=== PATIENT | female | born 1940 | race Caucasian/White ===

== ENCOUNTER 2022-09-15 00:55 | Emergency (ER) | payer MEDICARE, SELFPAY ==
[2022-09-15 01:07] VITALS: BP 136/89; PULSE 66; RESP 22; TEMP 36.6; O2SAT 96; BMI 21.5
--- NOTE | 2022-09-15 01:29 | ED.NURSE ---
Patient vomited x1.
[2022-09-15] MEDS: dexAMETHasone 10 MG/ML inj PO (02:00)
[2022-09-15] MEDS: RACEPINEPHRINE HCL 0.5 ML VIAL.NEB NEB (02:01)
[2022-09-15 02:15] VITALS: BP 135/71; PULSE 66; RESP 18; O2SAT 100
--- NOTE | 2022-09-15 02:16 | ED.NURSE ---
Patient reports improvement in her symptoms.
--- NOTE | 2022-09-15 02:48 | ED.GENADULT ---
HPI - General Adult General Chief complaint: Shortness of Breath/Dyspnea Stated complaint: Covid +, difficulty breathing Time Seen by Provider: 09/15/22 01:41 History of Present Illness HPI narrative: 82-year-old woman presenting to the emergency department with her daughter. Has had 3 days of increasingly sore throat. Has developed some hoarse voice. Was feeling like she was going to choke. She does acknowledges later as evident on exam that uvula is much bigger. Otherwise not necessarily short of breath. Two days ago tested positive on home test for COVID. She has been initiated on appropriate antiviral for COVID. No fever. No chest pain. No diarrhea. No abdominal pain. She has been snoring a little. Related Data Home Medications Medication Instructions Recorded Confirmed alendronate 70 mg tablet 70 mg PO QWEEK 06/14/22 09/15/22 calcium carbonate 600 mg calcium 600 mg PO BID 06/14/22 09/15/22 (1,500 mg) tablet carvedilol 6.25 mg tablet 6.25 mg PO BID 06/14/22 09/15/22 cholecalciferol (vitamin D3) 25 25 mcg PO QDAY 06/14/22 09/15/22 mcg (1,000 unit) capsule diphenhydramine HCl 25 mg capsule 25 mg PO QHS PRN 06/14/22 09/15/22 (Benadryl) hydrochlorothiazide 12.5 mg capsule 12.5 mg PO DAILY 06/14/22 09/15/22 hydrochlorothiazide 25 mg tablet 25 mg PO QAM 06/14/22 06/14/22 lisinopril 20 mg tablet 20 mg PO QDAY 06/14/22 09/15/22 multivitamin with folic acid 400 1 tab PO QAM 06/14/22 09/15/22 mcg tablet sotalol 80 mg tablet 80 mg PO ONCE 06/14/22 09/15/22 warfarin 3 mg tablet 3 mg PO DIRECTED 06/14/22 09/15/22 amlodipine 10 mg tablet mg 09/15/22 Allergies Allergy/AdvReac Type Severity Reaction Status Date / Time No Known Drug Allergies Allergy Verified 06/14/22 08:55 Review of Systems Status of ROS: Reports: 10 or more systems reviewed and unremarkable except as noted in History and below PFSH PFS Social History Smoking Status: Never smoker Do you use any of these nicotine containing products: None Second hand tobacco smoke exposure: No How often do you have a drink containing alcohol: 4 or more times a week How many standard drinks containing alcohol do you have on a typical day: 1 or 2 How often do you have six or more drinks on one occasion: Never AUDIT-C Alcohol total score: 4 Non-prescribed substance use: denies use service: No Exam Narrative: Exam Narrative: A pleasant. Laryngitic. Swallowing is of very painful. Rotational movement of her neck does not elicit more pain though. Oropharynx is moist. Mild edema and erythema in the posterior oropharynx. Uvula looks a little boggy. Intermittently seems to have the need to clear her throat this process looks particularly painful. Mild anterior upper cervical lymphadenopathy. Somewhat tender to palpation here. Lungs appear clear. There is no stridor. Cardiovascular with regular rate and rhythm. Abdomen is protuberant soft nontender. Extremities are without edema. Well perfused. One cough borders on sound croupy Const: Vital Signs, click to edit/add: Vital Signs - 24 hr 09/15/22 01:07 09/15/22 02:15 Temperature 97.8 F Pulse Rate [Pulse Oximeter] 66 66 Respiratory Rate 22 18 Blood Pressure [Le ft Upper Arm] 136/89 135/71 Pulse Oximetry 96 100 Oxygen Delivery Me thod Room Air Room Air Documenting provider has reviewed patient's vital signs: yes Course Vital Signs Vital signs: Initial Vital Signs Temperature 97.8 F 09/15/22 01:07 Temperature Source Temporal Artery Scan 09/15/22 01:07 Pulse Rate 66 09/15/22 01:07 Pulse Rhythm 09/15/22 01:07 Respiratory Rate 22 09/15/22 01:07 Blood Pressure 136/89 09/15/22 01:07 Blood Pressure Mean 104 09/15/22 01:07 Pulse Oximetry 96 09/15/22 01:07 Oxygen Delivery Method 09/15/22 01:07 Vital Signs Temperature 97.8 F 09/15/22 01:07 Pulse Rate 66 09/15/22 01:07 Respiratory Rate 22 09/15/22 01:07 Blood Pressure 136/89 09/15/22 01:07 Pulse Oximetry 96 09/15/22 01:07 Oxygen Delivery Method 09/15/22 01:07 Temperature 97.8 F 09/15/22 01:07 Pulse Rate 67 09/15/22 02:57 Respiratory Rate 18 09/15/22 02:57 Blood Pressure 149/83 H 09/15/22 02:57 Pulse Oximetry 97 09/15/22 02:57 Oxygen Delivery Method 09/15/22 02:57 Medical Decision Making MDM Narrative Medical decision making narrative: Discussed potential treatment options. For the pain and croupyness I noticed I think might benefit from racemic epinephrine nebulization. Would also dose with dose of dexamethasone. Noting affect on follow-up of the nebulization she did feel like she could breathe more easily with less pain. Pain did begin to return offered topical anesthetic in the form of Hurricaine spray. She did accept this. Helped temporarily but seemed to make her little uncomfortable with the swallowing and need to clear her throat. Monitored during time in the emergency department without oxygen desaturation. I think there are limited interventions to offer here. I recommended sleeping more upright, cool mist humidifier and sucking on ice/ice chips. I did discuss this case briefly with our ENT provider who affirmed these recommendations. Overall she has remained stable well from an oxygenation standpoint. She does not want to continue on steroids beyond a singular dose given here. Acetaminophen ordered as well. Discharge Plan Discharge Clinical Impression: Uvular edema, COVID-19, Pharyngitis Patient Disposition: Home w/ Parent or Adult Condition: Stable Additional Instructions: You received racemic epinephrine in nebulization here today. This is also available in Primatene mist; this might help your symptoms sometimes temporarily. I suspect that distilled water nebulized would also be helpful. With that in mind sleeping under the mist of a cool mist humidifier might be helpful. Sucking on ice/ice chips. Popsicles. Sleep more upright. Stay well-hydrated. Snoring and coughing can be exacerbating the uvular edema. Can continue with anesthetic throat sprays and lozenges for your sore throat. 20% benzocaine is available [id number] in the form of extra-strength Orajel If having increased in persistent shortness of breath, get yourself an oxygen saturation monitor and return to the emergency department for oxygen saturations are 90% or less. Prescriptions: No Action hydrochlorothiazide 12.5 mg capsule 12.5 mg PO DAILY Hold Instructions: Doctor's Order lisinopril 20 mg tablet 20 mg PO QDAY warfarin 3 mg tablet 3 mg PO DIRECTED sotalol 80 mg tablet 80 mg PO ONCE alendronate 70 mg tablet 70 mg PO QWEEK calcium carbonate 600 mg calcium (1,500 mg) tablet 600 mg PO BID hydrochlorothiazide 25 mg tablet 25 mg PO QAM diphenhydramine HCl [Benadryl] 25 mg capsule 25 mg PO QHS PRN carvedilol 6.25 mg tablet 6.25 mg PO BID Rx Instructions: must administer with a meal/food multivitamin with folic acid 400 mcg tablet 1 tab PO QAM cholecalciferol (vitamin D3) 25 mcg (1,000 unit) capsule 25 mcg PO QDAY amlodipine 10 mg tablet Follow Up/Referrals: Frannie Holland MD [Primary Care Provider] - Stand Alone Forms: My[facility] Info Instructions
[2022-09-15] MEDS: ACETAMINOPHEN 500 MG TABLET 1000 MG PO (02:56)
[2022-09-15 02:57] VITALS: BP 149/83; PULSE 67; RESP 18; O2SAT 97
== END 2022-09-15 03:08 | disposition home or self-care (01) ==
PROVIDERS: Emergency Provider Family Medicine; PCP Family Medicine
DX: U07.1 COVID-19 (principal); K13.70 Unspecified lesions of oral mucosa
CPT/HCPCS: 94640; 99283; 99284; A9270; J1100

== ENCOUNTER 2023-08-06 06:07 | Day surgery (SDC) | payer MEDICARE, SELFPAY ==
[2023-08-06] MEDS: TETRACAINE 0.5% OPHTH 1 DROP EYE-LEFT ×2 (06:15→06:25)
[2023-08-06 06:20] VITALS: BMI 22.5
[2023-08-06] MEDS: KETOROLAC OPHTH 0.5% 1 DROP EYE-LEFT ×2 (06:24→06:34)
[2023-08-06 06:29] VITALS: BP 126/76; PULSE 64; RESP 20; TEMP 36.4; O2SAT 97
[2023-08-06] MEDS: SODIUM CHLORIDE 0.9 % (FLUSH) 10 ML SYRINGE IVF (06:43)
--- NOTE | 2023-08-06 06:44 | SUR.PREOP ---
The eye drops brought by the patient (Ketorolac and Prednisolone) are examined and I have determined they are labeled by the patient's pharmacy for this patient as prescribed by the surgeon. The bottles are intact, recently obtained and appear to be correct.
[2023-08-06] MEDS: BALANCED SALT IRRIG SOLN 15 ML EYE-LEFT (06:55)
[2023-08-06] MEDS: TETRACAINE 0.5% OPHTH 2 DROP EYE-LEFT (07:00)
--- NOTE | 2023-08-06 07:42 | W.ANESCHARGE ---
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
--- NOTE | 2023-08-06 07:47 | W.ANESCHARGE ---
Anesthesia Charges Start Date/Time Anesthesia Start Date: 08/06/23 Anesthesia Start Time: 07:07 Stop Date/Time Anesthesia Stop Date: 08/06/23 Anesthesia Stop Time: 07:42 Summary Extremes of Age - Over 70 or under 1: MDA
[2023-08-06 07:51] VITALS: BP 124/81; PULSE 61; RESP 12; TEMP 36.3; O2SAT 96
--- NOTE | 2023-08-06 09:09 | P.OPTPRC_ITS ---
Procedure Note Date of procedure: 08/06/23 Will [facility] bill your pro fee for this procedure?: Yes Procedure Description: SURGEON: Melida Briscoe MD PREOPERATIVE DIAGNOSIS: Nuclear sclerotic cataract, left eye. POSTOPERATIVE DIAGNOSIS: Nuclear sclerotic cataract, left eye. NAME OF OPERATION: Phacoemulsification of cataract with posterior chamber intraocular lens implantation in the left eye. ANESTHESIA: Topical. ESTIMATED BLOOD LOSS: Less than 2 cc. COMPLICATIONS: None. PATHOLOGY SPECIMEN: None. INDICATIONS: See consult note for details. The risks, benefits and alternatives of the procedure were explained to the patient, who elected to proceed and signed informed consent to do so. PROCEDURE: The patient was brought to the pre-holding area where the left eye was identified as the operative eye. I placed my initials above this eye. The patient received eye drops consisting of 0.5% tetracaine, 1% tropicamide, 10% phenylephrine, and 0.5% ketorolac. The patient was then brought to the operating room where the left eye was again identified as the operative eye. The eye was prepped with Betadine and draped in the usual sterile ophthalmic fashion. A #15 super-sharp blade was used to create a paracentesis site. 1% non-preserved intracameral lidocaine was injected into the anterior chamber. Endocoat was injected into the anterior chamber. A 2.4 mm keratome was used to create a three-plane self-sealing incision 1 mm anterior to the temporal limbus. A cystotome was used to create an anterior capsular leaflet. The Utrata forceps were used to extend this to form a continuous curvilinear capsulorrhexis. Hydrodissection was performed. The cataract was removed with phacoemulsification using the [id number] technique. The irrigation and aspiration tip was used to remove the remaining cortex. Healon was injected into the capsular bag. An LORI ZCB00 intraocular lens of 18.5 diopters was injected into the capsular bag. The irrigation and aspiration tip was used to remove the remaining viscoelastic. Balanced salt solution on a cannula was used to hydrate the wound, and the wound was found to be watertight. The pupil was noted to be round. DISPOSITION: The patient was taken to the recovery room and discharged to home in stable condition. The patient was instructed to call me or go to the emergency department with any sudden change, including dramatic loss of vision, severe pain in the eye or eyebrow region, nausea, or vomiting. The patient will follow up in the clinic tomorrow morning.
== END 2023-08-06 08:09 | disposition home or self-care (01) ==
PROVIDERS: PCP Student in an Organized Health Care Education/Training Program; Visit Provider Ophthalmology
PROC: (CPT 66984; principal; 2023-08-06 06:15)
DX: H25.12 Age-related nuclear cataract, left eye (principal)
CPT/HCPCS: 66984; 00142; 99100; A9270; J2250; J3010; V2632

== ENCOUNTER 2023-08-20 06:00 | Day surgery (SDC) | payer MEDICARE, SELFPAY ==
[2023-08-20] MEDS: KETOROLAC OPHTH 0.5% 1 DROP EYE-RIGHT ×2 (06:22→06:29)
[2023-08-20] MEDS: TETRACAINE 0.5% OPHTH 1 DROP EYE-RIGHT ×2 (06:22→06:29)
[2023-08-20] MEDS: SODIUM CHLORIDE 0.9 % (FLUSH) 10 ML SYRINGE IVF (06:35)
[2023-08-20 06:49] VITALS: BMI 22.4
[2023-08-20 06:58] VITALS: BP 121/84; PULSE 61; RESP 16; TEMP 36.6; O2SAT 98
[2023-08-20] MEDS: TETRACAINE 0.5% OPHTH 2 DROP EYE-RIGHT (07:14)
[2023-08-20] MEDS: BALANCED SALT IRRIG SOLN 15 ML EYE-RIGHT (07:18)
--- NOTE | 2023-08-20 07:45 | W.ANESCHARGE ---
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
[2023-08-20 08:02] VITALS: BP 105/74; PULSE 61; RESP 16; TEMP 36.5; O2SAT 98
--- NOTE | 2023-08-20 08:21 | W.ANESCHARGE ---
Anesthesia Charges Start Date/Time Anesthesia Start Date: 08/20/23 Anesthesia Start Time: 07:14 Stop Date/Time Anesthesia Stop Date: 08/20/23 Anesthesia Stop Time: 07:47 Summary Extremes of Age - Over 70 or under 1: MDA
--- NOTE | 2023-08-20 10:00 | P.OPTPRC_ITS ---
Procedure Note Date of procedure: 08/20/23 Will [facility] bill your pro fee for this procedure?: Yes Procedure Description: SURGEON: Melida Briscoe MD PREOPERATIVE DIAGNOSIS: Nuclear sclerotic cataract, right eye. POSTOPERATIVE DIAGNOSIS: Nuclear sclerotic cataract, right eye. NAME OF OPERATION: Phacoemulsification of cataract with posterior chamber intraocular lens implantation in the right eye. ANESTHESIA: Topical. ESTIMATED BLOOD LOSS: Less than 2 cc. COMPLICATIONS: None. PATHOLOGY SPECIMEN: None. INDICATIONS: See consult note for details. The risks, benefits and alternatives of the procedure were explained to the patient, who elected to proceed and signed informed consent to do so. PROCEDURE: The patient was brought to the pre-holding area where the right eye was identified as the operative eye. I placed my initials above this eye. The patient received eye drops consisting of 0.5% tetracaine, 1% tropicamide, 10% phenylephrine, and 0.5% ketorolac. The patient was then brought to the operating room where the right eye was again identified as the operative eye. The eye was prepped with Betadine and draped in the usual sterile ophthalmic fashion. A #15 super-sharp blade was used to create a paracentesis site. 1% non-preserved intracameral lidocaine was injected into the anterior chamber. Endocoat was injected into the anterior chamber. A 2.4 mm keratome was used to create a three-plane self-sealing incision 1 mm anterior to the temporal limbus. A cystotome was used to create an anterior capsular leaflet. The Utrata forceps were used to extend this to form a continuous curvilinear capsulorrhexis. Hydrodissection was performed. The cataract was removed with phacoemulsification using the [id number] technique. The irrigation and aspiration tip was used to remove the remaining cortex. Healon was injected into the capsular bag. An LORI ZCB00 intraocular lens of 17.5 diopters was injected into the capsular bag. The irrigation and aspiration tip was used to remove the remaining viscoelastic. Balanced salt solution on a cannula was used to hydrate the wound, and the wound was found to be watertight. The pupil was noted to be round. DISPOSITION: The patient was taken to the recovery room and discharged to home in stable condition. The patient was instructed to call me or go to the emergency department with any sudden change, including dramatic loss of vision, severe pain in the eye or eyebrow region, nausea, or vomiting. The patient will follow up in the clinic tomorrow morning.
== END 2023-08-20 08:20 | disposition home or self-care (01) ==
PROVIDERS: PCP Student in an Organized Health Care Education/Training Program; Visit Provider Ophthalmology
PROC: (CPT 66984; principal; 2023-08-20 06:15)
DX: H25.11 Age-related nuclear cataract, right eye (principal)
CPT/HCPCS: 66984; 00142; 99100; A9270; J2250; J3010; V2632

== ENCOUNTER 2023-12-15 11:29 | Outpatient (CLI) | payer MEDICARE, SELFPAY ==
--- OUTSIDE RECORDS SUMMARY | 2023-12-15 11:33 | XMS_ITS | Clinical Summary ---
Author Name Unknown Organization [facility] Address [place], [place] [address] Care Team Providers Care Experimental Mechanic Name Role Phone Brianna Mckay Primary Care Provider [phone] Allergies No known active allergies Medications Medication Sig Dispensed Refills Start Date End Date Status calcium carbonate (CALTRATE) 600 mg calcium (1,500 mg) tablet Take 1,200 mg by mouth once daily. Not taking 0 2 Active acetaminophen (TYLENOL EXTRA STRGTH) 500 mg tabletIndication s:S/P placement of cardiac pacemaker Take 2 Tablets (1,000 mg) by mouth 3 times daily if needed for Pain (For mild pain.). Max acetaminophen dose: 4000mg in 24 hrs. 0 2 Active alendronate (FOSAMAX) 70 mg tabletIndication s:Senile osteoporosis Take 1 Tablet (70 mg) by mouth once a week in the morning. Take on empty stomach with full glass of water. Do not lie down or eat for 30 12 Tablet 3 3 024 Active lisinopriL (PRINIVIL; ZESTRIL) 20 mg tabletIndication s:Hypertension, unspecified type Take 1 Tablet (20 mg) by mouth once daily. 90 Tablet 2 3 Active zinc gluconate 50 mg tablet Take 1 Tablet (50 mg) by mouth once daily. 4 Active amLODIPine (NORVASC) 10 mg tabletIndication s:Primary Raynaud's phenomenon Take 1 Tablet (10 mg) by mouth once daily. 90 Tablet 2 4 Active triamcinolone (ARISTOCORT; KENALOG) 0.1 % creamIndications :Dermatitis Apply topically to affected area(s) three times daily. 80 g 4 Active polyethylene glycol-electroly te (GOLYTELY) 236-22.74-6.74 -5.86 gram suspensionIndica tions:Polyp of colon, unspecified part of colon, unspecified type Drink 2 liters the day before colonoscopy and 2 liters 6 hours before colonoscopy appointment 4000 mL 4 Active sotaloL (BETAPACE) 80 mg tabletIndication s:Paroxysmal atrial fibrillation (HC) TAKE ONE TABLET BY MOUTH EVERY DAY (EVERY 24 HOURS) 90 Tablet 1 4 Active polyethylene glycol-electroly te (GOLYTELY) 236-22.74-6.74 -5.86 gram suspensionIndica tions:Encounter for screening colonoscopy Drink 1.5 liters (1& 1/2 bottles) the day before colonoscopy and 2 liters (remaining 1/2 bottle) 6 hours prior to colonoscopy appointment. 4000 mL 4 Active warfarin (COUMADIN) 3 mg tabletIndication s:New onset atrial fibrillation (HC),Anticoagula tion monitoring, INR range 2-3 Take by mouth 12/09: Hold; 12/10: Hold; 12/11: Hold; 12/12: Hold; 12/13: Hold; Otherwise 6 mg every Mon, Wed, Fri; 7.5 mg all other days in the evening OR as directed 4 Active sotaloL (BETAPACE) 80 mg tabletIndication s:Paroxysmal atrial fibrillation (HC) TAKE ONE TABLET BY MOUTH ONCE EVERY DAY [EVERY 24 HOURS] 90 Tablet 1 3 024 Discontinued warfarin (COUMADIN) 3 mg tabletIndication s:New onset atrial fibrillation (HC),Anticoagula tion monitoring, INR range 2-3 Take by mouth 7.5 mg (3 mg x 2.5) every Sun; 6 mg (3 mg x 2) all other days in the evening OR as directed 190 Tablet 4 024 Discontinued(Re order (E-cancel not sent)) warfarin (COUMADIN) 3 mg tabletIndication s:New onset atrial fibrillation (HC),Anticoagula tion monitoring, INR range 2-3 Take by mouth 6 mg (3 mg x 2) every Mon, Wed, Fri: 7.5 mg (3 mg x 2.5) all other days in the evening OR as directed 024 Discontinued(Ot her - add note to specify (E-cancel not sent)) Active Problems Problem Noted Date Diagnosed Date Pacemaker 06/14/2022 Paroxysmal atrial fibrillation 04/16/2022 New onset atrial fibrillation 01/24/2022 Anticoagulation monitoring, INR range 2-3 2021 Raynaud phenomenon 09/10/2021 Colon polyp 08/21/2018 Overview: Colonoscopy 08/2018 polyp, lymphocytic colitis, repeat in 5 years Lymphocytic colitis 08/21/2018 Overview: Colonoscopy 08/2018 polyp, lymphocytic colitis, repeat in 5 years H. pylori infection 07/28/2018 Overview: EGD 07/2018 H pylori gastritis HTN (hypertension) 12/26/2010 Other and unspecified hyperlipidemia 06/26/2007 Senile osteoporosis 06/26/2007 Overview: Fosamax 2003- Restarted 2020 Encounters Date Type Department Care Team Description 12/05/2023 11:10 AM CDT Preop Visit [facility] [address] [place] [address] Brianna Mckay PA Preoperative Exam (Colonoscopy 12/15/23 [facility] Conn) 12/05/2023 Travel 12/03/2023 Anticoagulation (warfarin) [facility] [address] [place] [address] 1, [facility] Anticoagulation (Chart update: Procedure Hold) 12/03/2023 Telephone [facility] [address] [place] [address] Brianna Mckay PA Medication Management 12/03/2023 Telephone [facility] [address] [place] [address] Ray Cnon MD Questions 12/02/2023 Refill [facility] [address] [place] [address] Brianna Mckay PA Refill Request (Sotalol) 12/01/2023 11:30 AM CDT Orders Only [facility] [address] [facility] [place] [address] [place] [facility] 12/01/2023 Telephone [facility] [address] [place] [address] Brianna Mckay PA Anticoagulation (HOLD ORDERS- Colonoscopy 12/15/23) 12/01/2023 Anticoagulation (warfarin) [facility] [address] [place] [address] 1, [facility] Anticoagulation 12/01/2023 Travel 11/27/[address] [address] Ray Conn MD Screening 11/24/[address] [address] Brianna Mckay PA Referral 11/17/2023 3:15 PM CDT Orders Only [facility] [address] [place] [address] [place] [facility] 11/17/2023 Anticoagulation (warfarin) [facility] [address] [place] [address] 1, [facility] Anticoagulation 11/17/2023 Travel 11/06/[address] [address] Brianna Mckay PA Anticoagulation (Annual re-enrollment ) 10/28/2023 10:15 AM MARKETING AND DEVELOPMENT COORDINATOR Orders Only [address] [address] [place] [facility] 10/28/2023 Anticoagulation (warfarin) [facility] [address] [place] [address] 1, [facility] Anticoagulation 10/28/2023 Travel 10/15/2023 Anticoagulation (warfarin) [facility] [address] [place] [address] 1, [facility] Anticoagulation 10/14/2023 1:00 PM MARKETING AND DEVELOPMENT COORDINATOR Orders Only [address] [place] [address] Lab[facility] [place] [facility] 10/14/2023 Travel 10/13/[address] [place] [address] Brianna Mckay PA Refill Request (Warfarin) 10/10/2023 9:05 AM MARKETING AND DEVELOPMENT COORDINATOR Office Visit [address] [place] [address] Brianna Mckay PA Derm Problem (Bilateral lower legs- seems to be spreading ) 10/10/2023 Travel 10/09/2023 Nurse Triage [address] [place] [address] Brianna Mckay PA Rash 10/03/2023 1:45 PM MARKETING AND DEVELOPMENT COORDINATOR Orders Only [address] [place] [address] Lab[place] [facility] 10/03/2023 Anticoagulation (warfarin) [address] [address] 1, [facility] Anticoagulation 10/03/2023 Travel 09/26/2023 9:00 AM MARKETING AND DEVELOPMENT COORDINATOR Orders Only [address] [place] [address] Lab[place] [facility] 09/26/2023 Anticoagulation (warfarin) [address] [address] 1, [facility] Anticoagulation 09/26/2023 Travel 09/24/2023 10:40 AM MARKETING AND DEVELOPMENT COORDINATOR [facility] [address] [facility] [place] [address] Danii Ragland NP CV Electrophysiology Est (F/u post PPM implant, device check done prior. ) 09/24/2023 Travel 09/23/[address] [facility] [place] [address] Brianna Mckay PA Anticoagulation (High INR) 09/22/2023 3:15 PM MARKETING AND DEVELOPMENT COORDINATOR Orders Only [facility] [address] [facility] [place] [address] Lab[place] [facility] 09/22/2023 Anticoagulation (warfarin) [facility] [address] [place] [address] 1, [facility] Anticoagulation 09/22/2023 Telephone [facility] [address] [place] [address] Brianna Mckay PA Lab 09/22/2023 Travel 09/18/2023 7:30 AM MARKETING AND DEVELOPMENT COORDINATOR Office Visit [facility] [address] [place] [address] Lisa French, Hand Pain/problem (painful fingers on both hands, skin is splitting and raw. ongoing for several years); Derm Problem (dry patchy skin on lower extremities for 2 weeks. occasionally itchy. ) 09/18/2023 Travel 09/16/2023 Telephone [facility] [address] [place] [address] Brianna Mckay PA Appointment Request (Requesting to be seen for circulation concerns ) from Last 3 Months Immunizations Name Administration Dates Next Due COVID-19 vaccine (Moderna 10 0mcg/0.5mL) PF, MDV 12/06/2021,07/03/2021,11/17/2020 Influenza RIV4 (Age 18+ Years) PRESERV FREE 10/2019 Influenza, High-dose Inactivated 06/18/2018,05/02 Influenza, High-dose Quadriv alent Inactivated 06/25/2023,06/10/2022,05/18/2021 Influenza, IIV3 (Age >=3 years) 05/12/2008 Influenza, Inactivated IIV3 (Age 65+ Years) Preserv Free 05/24/2019 Pneumococcal Poly,23-Valent (Pneumovax) 06/19/20 20 Pneumococcal conj 13-Valent (Prevnar 13) 019 Td (Age >=7 Years) 03/01/2003 Tdap 06/10/2022,02/10/2013 Zoster (Shingrix-RZV, recombinant) 05/24/2019, Zoster (Zostavax-ZVL, live) 10/02/2015 Family History Medical History Relation Name Comments Hyperlipidemia Father Hypertension Father Stroke Father Cancer-breast Maternal Grandmother Arthritis Mother Cancer Mother Lung/Smoker Hyperlipidemia Mother Cancer-breast Sister Postmenopausal breast cancer Sister Relation Name Status Comments Father Maternal Grandmother Mother Sister Social History Tobacco Use Types Packs/Day Years Used Date Smoking Tobacco: Never Smokeless Tobacco: Never Tobacco Cessation:Counseling Given: Yes Alcohol Use Standard Drinks/Week Comments Yes 7 (1 standard drink = 0.6 oz pur e alcohol) 1 drink/day PHQ-2 Answer Date Recorded PHQ-2 TOTAL SCORE 0 06/25/2023 Social Connections Answer Date Recorded Frequency of Communication with Friends and Fami ly 0 09/18/2023 Financial Resource Strain Answer Date R ecorded Difficulty of Paying Living Expenses 3 09/18/2023 Difficulty of Paying Living Expenses Not on file 09/18/2023 Food Insecurity Answer Date Recorded Worried About Running Out of Food in the Last Ye ar 1 09/18/2023 Transportation Needs Answer Date Record ed Lack of Transportation (Medical) 1 09/18/2023 Housing Stability Answer Date Recorded Unable to Pay for Housing in the Last Year 1 09/18/2023 Sex and Gender Information Value Date Recorded Sex Assigned at Not on file Gender Identity Not on file Sexual Orientation Not on file Obstetrics History Para Term AB IAB SAB Ectopic Multiple Livin g Live Births 2 2 Date Outcome GA Total Labor Labor/2nd/3rd Weight Sex Delivery Anes PTL Francine A1 A5 Name Cl in Last Filed Vital Signs Vital Sign Reading Time Taken Comments Blood Pressure 113/75 12/05/2023 11:09 AM CDT Pulse 81 12/05/2023 11:09 AM CDT Temperature 36.4 ??C (97.5 ??F) 08/04/2023 2:27 PM CS T Respiratory Rate 16 08/04/2023 2:27 PM MARKETING AND DEVELOPMENT COORDINATOR Oxygen Saturation 99% 12/05/2023 11:09 AM CDT Inhaled Oxygen Concentration - - Weight 64.5 kg (142 lb 3.2 oz) 12/05/2023 11:09 AM CDT Height 170.5 cm (5' 7.13) 12/05/2023 11:09 AM C DT Body Mass Index 22.19 12/05/2023 11:09 AM CDT Plan of Treatment Upcoming Encounters Date Type Department Care Team (Late st Contact Info) Description 12/15/2023 11:45 AM CDT Office Visit [facility] [address] [place] [address] Ray Conn MD [address] [place] [address] Arrived 12/22/2023 10:00 AM CDT Orders Only [facility] [address] [place] [address] [place] 01/23/2024 Cardiac Device Check [facility] [phone] Health Maintenance Due Date Last Done Comments Influenza for age 65+ 05/02/2024 06/25/2023 , 06/10/2022, 05/18/2021, Additional history exists Medicare Wellness for age 65+ 06/25/2024, 06/24/2022, 06/21/2021, Additional history exists Depression screening for age 12+ 06/26/2024 06/26/2023, 06/25/2023, 06/25/2023, Additional history exists BMI (ht and wt on same day) for age 18+ 12/04/2024 12/05/2023, 09/24/2023, 08/04/2023, Additional history exists Tetanus booster 06/10/2032 06/10/2022, 01/30, 02/10/2013, Additional history exists Zoster (shingles) series for age 50+ Completed 05/24/2019, 02/01/2019, 10/02/2015 Pneumococcal series for age 65+ Completed 0, 06/17/2019 Tdap Completed 06/10/2022, 02/10/2013 COVID-19 vaccine series Completed 06/10/20 23, 05/22/2022, 12/06/2021, Additional history exists DEXA/DXA scan for age 65+ Completed 2022, 06/25/2021, 07/21/2012, Additional history exists Procedures Procedure Name Priority Date/Time Associated Diagnosis Comments COLONOSCOPY SCREENING Routine 12/15/2023 8:20 AM CDT Polyp of colon, unspecified part of colon, unspecified type BASIC METABOLIC PANEL Routine 12/05/2023 11:56 AM CDT Preop examination INR,POCT Routine 12/01/2023 11:31 AM CDT New onset atrial fibrillation (HC) Anticoagulation monitoring, INR range 2-3 INR,POCT Routine 11/17/2023 3:04 PM CDT New onset atrial fibrillation (HC) Anticoagulation monitoring, INR range 2-3 INR,POCT Routine 10/28/2023 10:19 AM MARKETING AND DEVELOPMENT COORDINATOR New onset atrial fibrillation (HC) Anticoagulation monitoring, INR range 2-3 PROTIME-INR STAT 10/14/2023 12:50 PM MARKETING AND DEVELOPMENT COORDINATOR New onset atrial fibrillation (HC) Anticoagulation monitoring, INR range 2-3 PROTIME-INR STAT 10/03/2023 1:40 PM MARKETING AND DEVELOPMENT COORDINATOR New onset atrial fibrillation (HC) Anticoagulation monitoring, INR range 2-3 PROTIME-INR STAT 09/26/2023 8:57 AM MARKETING AND DEVELOPMENT COORDINATOR New onset atrial fibrillation (HC) Anticoagulation monitoring, INR range 2-3 EKG 12 LEAD Routine 09/24/2023 10:31 AM MARKETING AND DEVELOPMENT COORDINATOR Paroxysmal atrial fibrillation (HC) PROTIME-INR Routine 09/22/2023 3:18 PM MARKETING AND DEVELOPMENT COORDINATOR New onset atrial fibrillation (HC) Anticoagulation monitoring, INR range 2-3 XR DXA BONE DENSITY 2 SITES AXIAL Routine 06/26/2023 1:16 PM CDT Senile osteoporosis from Last 3 Months or Most Recently Relevant to Health Maintenance Results * (ABNORMAL) BASIC METABOLIC PANEL (12/05/2023 11:56 AM CDT) [facility] Signature SODIUM 142 136 - 145 mmol/L 12/05/2023 10:17 PM CDT [facility] POTASSIUM 4.2 3.5 - 5.1 mmol/L 12/05/2023 10:17 PM CDT [facility] CHLORIDE 105 98 - 107 mmol/L 12/05/2023 10:17 PM CDT [facility] CO2,TOTAL 28 22 - 29 mmol/L 12/05/2023 10:17 PM CDT [facility] ANION GAP 9 5 - 18 12/05/2023 10:17 PM T [facility] GLUCOSE 92 70 - 99 mg/dL 12/05/2023 10:17 PM CDT [facility] CALCIUM 9.8 8.8 - 10.2 mg/dL 12/05/2023 10:17 PM T [facility] BUN 18 8 - 23 mg/dL 12/05/2023 10:17 PM T [facility] CREATININE 1.01(H) 0.50 - 0.90 mg/dL 12/05/2023 10:17 PM T [facility] BUN/CREAT RATIO 18 10 - 20 10:17 PM T [facility] eGFR 56(L) >90 mL/min/1.7 3m2 12/05/2023 10:17 PM T [facility] Comment:As of 2021, eG FR is calculated by the CKD-EPI creatinine equation without race adjustment. ??eGFR can be influenced by muscle mass, exercise, and diet. ??The reported eGFR is an estimation only and is only applicable if the renal function is stable. Blood BLOOD SPECIMEN / Unknown Venipuncture / Unknown 12/05/2023 11:56 AM CDT 12/05/2023 11:56 AM CDT Brianna BARRIGA CHEMISTRY [facility] [address] [place] [address], [place] * (ABNORMAL) INR,POCT (12/01/2023 11:31 AM CDT) Only the most recent of3 resultswithin the time period is included. INR 2.7(H) <1.3 12/01/2023 11:36 AM CDT [facility] Blood BLOOD SPECIMEN / Unknown 12/01/2023 11:31 AM CDT 12/01/2023 11:36 AM CDT Narrative [facility] - 12/01/2023 11:36 AM CDT ?Therapeutic Range 2.0-3.0 for most anticoagulated patients 2.5-3.5 or 4.0 for high risk patients Brianna BARRIGA LABORATORY Performing Organization Address [place]/[facility] Co de Phone Number [facility] [address] [place] [address], [place] [phone] * (ABNORMAL) PROTIME-INR (10/14/2023 12:50 PM MARKETING AND DEVELOPMENT COORDINATOR) Only the most recent of4 resultswithin the time period is included. INR 2.9(H) <1.3 10/14/2023 8:52 PM MARKETING AND DEVELOPMENT COORDINATOR [facility] PROTIME 31.5(H) 10.3 - 12.3 sec 10/14/2023 8:52 PM MARKETING AND DEVELOPMENT COORDINATOR [facility] Blood BLOOD SPECIMEN / Unknown Venipuncture / Unknown 10/14/2023 12:50 PM MARKETING AND DEVELOPMENT COORDINATOR 10/14/2023 12:53 PM MARKETING AND DEVELOPMENT COORDINATOR Narrative [facility] - 10/14/2023 8:52 PM MARKETING AND DEVELOPMENT COORDINATOR ?Therapeutic Range 2.0-3.0 for most anticoagulated patients 2.5-3.5 or 4.0 for high risk patients The INR is only used for patients on stable oral anticoagulant therapy. It makes no significant contribution to the diagnosis or treatment of patients whose Protime is prolonged for other reasons. INR results are increased when heparin levels exceed 1.0 U/mL, which corresponds to an aPTT >125 seconds if the patient is on UFH. Brianna BARRIGA HEMATOLOGY [facility] [address] [place] [address], * EKG 12 LEAD (09/24/2023 10:31 AM MARKETING AND DEVELOPMENT COORDINATOR) Interpretation Atrial-paced rhythm Abnormal ECG When compared with ECG of 09-APR-2022 15:30, Premature atrial complexes are no longer Present Right bundle branch block is no longer Present Ventricular Rate 71 BPM Atrial Rate 71 BPM P-R Interval 198 ms QRS Duration 74 ms QT 418 ms QTc 454 ms P Martell degrees R Martell 54 degrees T Martell 49 degrees 09/24/2023 10:3 1 AM MARKETING AND DEVELOPMENT COORDINATOR 09/25/2023 7:48 AM MARKETING AND DEVELOPMENT COORDINATOR Danii Ragland NP EKG ORD * (ABNORMAL) XR DXA BONE DENSITY 2 SITES AXIAL (06/26/2023 1:16 PM CDT) Anatomical Region Laterality Modality Spine, HIPS, HIPL, HIPR Other Impressions 07/02/2023 4:54 PM CDT Osteoporosis. RECOMMENDATIONS: The National Osteoporosis Foundation recommends pharmacologic treatment for patients with T-scores of -2.5 or less, patients with prior history of fragility fractures, or patients with 10-year probability of greater than 3% at hips or greater than 20% of suffering major osteoporotic fractures. Recommend continued optimization of calcium and vitamin D intake through dietary means and/or supplementation and regular exercise. Consider pharmacologic therapy for osteoporosis. Follow-up bone density reading in 2 years if therapy initiated to assess therapeutic efficacy. ?? Patient just discontinued fosamax, so consider alternative medication. Flower Saavedra PA-C [employer] [facility] 07/02/2023 Narrative 07/02/2023 4:54 PM CDT For Patients: Results are automatically released to your [employer] ([employer]) account once available, in compliance with federal regulations. This means that you may see your results before your provider has had a chance to review them. Please allow 2-3 business days for your provider to comment on the results. XR DXA Bone Mineral Density (BMD) EXAM LOCATION: [facility] [address] [facility] [id number] PATIENT NAME: Nemesio Horta DATE OF : 1940 EXAM DATE: 06/26/2023 REQUESTING PROVIDER: Brianna Mckay PA GENDER AT : female HEIGHT: 5' 6.06 (06/25/2023) WEIGHT: ??139 lb 3.2 oz (06/25/2023) MENOPAUSAL STATUS: Postmenopausal RACE/ETHNICITY: White RISK FACTORS: White Race CURRENT MEDICATION FOR BONE LOSS: Alendronate (Fosamax) - stopped taking it 3 weeks ago INDICATION: Senile osteoporosis COMPARISON DATE(S): 2020 DXA scans are compared to prior studies for a patient only when the two (or more) studies were performed on the same scanner. It is not possible to compare data generated on one scanner to data from another because there are not standards in DXA equipment. This applies even if the two scanners are made by the same interior design principal. PROCEDURE: Dual-energy x-ray absorptiometry performed with routine technique. Reporting is completed in the form of a T-score. The T-score represents the standard deviation from peak bone mass based on young healthy adult. A Z-score is used for diagnosis in premenopausal women, and for men under the age of 50. FINDINGS: RESULT LUMBAR SPINE L1 - L4 BMD: 0.717 g/cm2 T-Score: - 3.9 Z-Score: - 1.9 Change from prior in 2020: ??Increase 5.0%. RESULTS FEMUR Left femoral neck BMD: 0.708 g/cm2 T-Score: - 2.4 Z-Score: - 0.1 Change from prior in 2020: ??Decrease 0.7%. Right femoral neck BMD: 0.705 g/cm2 T-Score: - 2.4 Z-Score: - 0.1 Change from prior in 2020: ??Decrease 1.3%. Left hip BMD: 0.713 g/cm2 T-Score: - 2.3 Z-Score: - 0.2 Change from prior in 2020: ??Increase 4.7%. Right hip BMD: 0.669 g/cm2 T-Score: - 2.7 Z-Score: - 0.6 Change from prior in 2020: ??Increase 4.5%. WHO criteria: Normal: T-score at or above -1 SD Osteopenia: T-score between -1.1 and -2.4 SD Osteoporosis: T-score at or below -2.5 SD Brianna BARRIGA DEXA from Last 3 Months or Most Recently Relevant to Health Maintenance Advance Directives Documents on File Type Date Recorded Patient Head Stock Operator Expl anation Healthcare Directive 04/21/2014 12:18 PM Ne GEE, 03/11/2007 * Full Code (Latest Code Status on File) Date Activated Date Inactivated Comments 04/09/2022 12:28 PM 04/09/2022 6:46 PM Question Answer Comments Code Status Discussion: Reviewed Preferences Care Teams Experimental Mechanic Relationship Specialty Start Date End Date Brianna Mckay [place] [address] PCP - General Physician Operator Catalyst Concentration 12/25/22
--- NOTE | 2023-12-15 13:44 | P.ANES_ITS ---
Anesthesia Charges Start Date/Time Anesthesia Start Date: 12/15/23 Anesthesia Start Time: 13:00 Stop Date/Time Anesthesia Stop Date: 12/15/23 Anesthesia Stop Time: 13:35 Summary Extremes of Age - Over 70 or under 1: AQUACULTURE WORKER
--- NOTE | 2023-12-15 14:20 | W.ANESCHARGE ---
Anesthesia Charges Start Date/Time Anesthesia Start Date: 12/15/23 Anesthesia Start Time: 13:00 Stop Date/Time Anesthesia Stop Date: 12/15/23 Anesthesia Stop Time: 13:35 Summary Extremes of Age - Over 70 or under 1: MDA
== END 2023-12-15 11:30 | disposition home or self-care (01) ==
LOC: OP CLINIC 11:30
PROVIDERS: PCP Student in an Organized Health Care Education/Training Program; Visit Provider Internal Medicine Gastroenterology
DX: Z12.11 Encounter for screening for malignant neoplasm of colon (principal); K63.5 Polyp of colon; K57.30 Diverticulosis of large intestine without perforation or abscess without bleeding; Z86.010 Personal history of colon polyps
CPT/HCPCS: 00811; 00812; 45380; 45385; 88305; 99100; J2704

== ENCOUNTER 2024-02-19 06:34 | Outpatient (CLI) | payer MEDICARE, SELFPAY ==
--- OUTSIDE RECORDS SUMMARY | 2024-02-21 06:14 | XMS_ITS | Clinical Summary ---
Author Organization [facility] Address [place], [place] [address] Care Team Providers Care [employer] Sil[employer] Name Role Phone Brianna Mckay Primary Care Provider [phone] Allergies No known active allergies Medications Medication [...] 02/18/2024 1:35 PM CDT Phone Office Visit [address] [address] Brianna Mckay PA Covid-19 Positive Result (02/15 started as a runny nose/cold/02/16 positive results /feeling terrible, weak and not eating.) 02/18/2024 Telephone [facility] [address] [place] [address] Brianna Mckay PA Anticoagulation (BPA - PAXLOVID 300 MG (150 MG X 2)-100 MG TABLETS IN A DOSE PACK) 02/02/2024 2:00 PM CDT Orders Only [address] [address] Lab, [place] [facility] 02/02/2024 Anticoagulation (warfarin) [facility] [address] [place] [address] 1, [place] [facility] Anticoagulation 02/02/2024 Travel 01/20/2024 3:15 PM CDT Office Visit [address] [address] Brianna Mckay PA Blood Pressure 01/20/2024 Travel 01/05/2024 11:15 AM CDT Orders Only [address] [address] Lab, [place] [facility] 01/05/2024 Anticoagulation (warfarin) [facility] [address] [place] [address] 1, [place] Anticoagulation 01/05/2024 Travel 01/02/2024 Telephone [facility] [address] [place] [address] Brianna Mckay PA Anticoagulation 01/02/2024 Telephone [facility] [address] [place] [address] Brianna Mckay PA Refill Request (warfarin (COUMADIN) 3 mg tablet/) 01/02/2024 Telephone [facility] [address] [place] [address] Brianna Mckay PA Medication Management 01/02/2024 Refill [facility] [address] [place] [address] Brianna Mckay PA Refill Request (Hydrochlorothiazide, Warfarin) 01/02/2024 Refill [facility] [address] [facility] [address] [place] [address] Mulugeta Ren MD Refill Request (Carvedilol) 01/02/2024 Telephone [facility] [address] [place] [address] Brianna Mckay PA Medication Management 12/22/2023 10:00 AM CDT Orders Only [facility] [address] [place] [address] Lab, [place] [facility] 12/22/2023 Anticoagulation (warfarin) [facility] [address] [place] [address] 1, [facility] Anticoagulation 12/22/2023 Travel 12/15/2023 11:45 AM CDT Office Visit [facility] at [facility] [address] [place] [address] Ray Conn MD 12/15/2023 Lab Requisition [facility] [phone] Ray Conn MD 12/05/2023 11:10 AM CDT Preop Visit [facility] [place] [address] Brianna Mckay PA Preoperative Exam (Colonoscopy 12/15/[address] [facility] [address] Conn) 12/05/2023 Travel 12/03/2023 Anticoagulation (warfarin) [address] [address] 1, [facility] Anticoagulation (Chart update: Procedure Hold) 12/03/[address] [address] Brianna Mckay PA Medication Management 12/03/[address] [address] Ray Conn MD Questions 12/02/[address] [address] Brianna Mckay PA Refill Request (Sotalol) 12/01/2023 11:30 AM CDT Orders Only [address] [address] Lab, [facility] 12/01/[address] [address] Brianna Mckay PA Anticoagulation (HOLD ORDERS- Colonoscopy 12/15/23) 12/01/2023 Anticoagulation (warfarin) [address] [address] 1, [facility] Anticoagulation 12/01/2023 Travel 11/27/[address] [address] Ray Conn MD Screening 11/24/[address] [address] Brianna Mckay PA Referral from Last 3 [...] T Respiratory Rate 16 08/04/2023 2:27 PM FIREFIGHTER TYPE ONE Oxygen Saturation 96% 01/20/2024 2:23 PM CDT Inhaled Oxygen Concentration - - Weight 63.4 kg (139 lb 11.2 oz) 01/20/2024 2:23 PM CDT Height 170.5 cm (5' 7.13) 12/05/2023 1 1:09 AM CDT Body Mass Index 21.8 12/05/2023 11:09 AM CDT Plan of Treatment Upcoming Encounters Date Type Department Care Team (Late st Contact Info) Description 02/25/2024 8:45 AM CDT Orders Only [facility] [address] [place] [address] Lab, [place] 02/25/2024 11:35 AM CDT Office Visit [facility] [address] [place] [address] Brianna Mckay PA [address] [place] [address] 06/09/2024 Cardiac Device Check [facility] [phone] Health Maintenance Due Date Last Done Comments [...] Procedure Name Priority Date/Time Associated Diagnosis Comments PACER NANCI DUAL CHAMBER WO REPROG Routine 02/19/2024 1:12 PM CDT Fitting or adjustment of cardiac pacemaker INR,POCT Routine 02/02/2024 1:53 PM CDT New [...] INR 2.1(H) <1.3 02/02/2024 1:56 PM CDT [facility] Blood BLOOD SPECIMEN / Unknown 02/02/2024 1:53 PM CDT 02/02/2024 1:56 PM CDT Narrative [facility] - 02/02/2024 1:56 PM CDT ?Therapeutic Range 2.0-3.0 for most anticoagulated patients 2.5-3.5 or 4.0 for high risk patients [facility] [place] [address], * (ABNORMAL) BASIC METABOLIC PANEL (01/20/2024 2:47 PM CDT) Only the most recent of2 resultswithin the time period is included. SODIUM 142 136 - 145 mmol/L 01/21/2024 2:01 AM CDT [facility] POTASSIUM 3.8 3.5 - 5.1 mmol/L 01/21/2024 2:01 AM CDT [facility] CHLORIDE 105 98 - 107 mmol/L 01/21/2024 2:01 AM CDT [facility] CO2,TOTAL 28 22 - 29 mmol/L 01/21/2024 2:01 AM CDT [facility] ANION GAP 9 5 - 18 01/21/2024 2:01 AM T [facility] GLUCOSE 94 70 - 99 mg/dL 01/21/2024 2:01 AM T [facility] CALCIUM 9.3 8.8 - 10.2 mg/dL 01/21/2024 2:01 AM CDT [facility] BUN 13 8 - 23 mg/dL 01/21/2024 2:01 AM T [facility] CREATININE 0.84 0.50 - 0.90 mg/dL 01/21/2024 2:01 AM T [facility] BUN/CREAT RATIO 15 10 - 20 2:01 AM T [facility] eGFR 70(L) >90 mL/min/1.7 3m2 01/21/2024 2:01 AM T [facility] Comment:As of 2021, eG FR is calculated by the CKD-EPI creatinine equation without race adjustment. ??eGFR can be influenced by muscle mass, exercise, and diet. ??The reported eGFR is an estimation only and is only applicable if the renal function is stable. Blood BLOOD SPECIMEN / Unknown Venipuncture / Unknown 01/20/2024 2:47 PM CDT 01/20/2024 2:49 PM CDT [facility]anna [facility] [address] [place] [address], * (ABNORMAL) PROTIME-INR (12/22/2023 9:59 AM CDT) INR 1.5(H) <1.3 12/22/2023 3:38 PM CDT [facility] PROTIME 16.2(H) 10.3 - 12.3 sec 12/22/2023 3:38 PM CDT [facility] Blood BLOOD SPECIMEN / Unknown Venipuncture / Unknown 12/22/2023 9:59 AM CDT 12/22/2023 10:00 AM CDT Narrative [facility] - 12/22/2023 3:38 PM CDT ?Therapeutic Range [...] UFH. Brianna [facility]AT[facility] Performing Organization Address [facility] Phone Number [facility] [address] [place] [address], * LAB TRACKING EVENT (12/15/2023 1:25 PM CDT) Other (Other) Client Collect / Unknown 12/15/2023 1:25 PM CDT 12/15/2023 8:40 PM CDT Ray Conn MD LAB BILL ONLY Performing Organization Address [facility] de Phone Number [facility] [address] [place] [address], * PATH TISSUE EXAM (12/15/2023 1:25 PM CDT) Case Report Pathology Report ?Case: [id number] ? Authorizing Provider: ??Ray Conn MD ?? Collected: ? 12/15/2023 1325 ? Ordering Location: ? [facility] ?Received: ?12/15/20232105 ? Pathologist: ? Maikol Weir ? CAMILA, ? Specimens: ?? A) - Colon Biopsy, Random ? B) - Transverse Colon Polyp ? 12/16/2023 1:39 PM CDT [facility] Final Diagnosis A) COLON, RANDOM, BIOPSY: 1. Normal colonic mucosa 2. Negative for microscopic, active, and chronic colitis B) COLON, TRANSVERSE, POLYPECTOMY: 1. Tubular adenoma 2. Negative for high grade dysplasia 3. Per the colonoscopy report: ?? a. Polyp size: 3 mm ?? b. Resection: Complete ?? c. Retrieval: Complete 12/16/2023 1:39 PM CDT [facility] Clinical Information Ms. Horta is a 83 y.o. who presents for surveillance colonoscopy. Colonoscopy findings include: -1, 3 mm transverse polyp -Sigmoid diverticulosis 12/16/2023 1:39 PM CDT [facility] Gross Description A) Received in formalin [...] 12/15/2023 9:09 PM 12/16/2023 1:39 PM CDT [facility] Microscopic Description The final diagnosis is based on microscopic examination of appropriate sections of all specimens. 12/16/2023 1:39 PM CDT [facility] Additional Information Interpreted at [facility] - [address] [facility] [address] [facility] [address], [place] [address] 12/16/2023 1:39 PM CDT [facility] Other (Colon Biopsy) 12/15/2023 1:25 PM CDT 12/15/2023 9:06 PM CDT Specimen (specimen) (Transverse Colon Polyp) 12/15/2023 1:25 PM CDT 12/15/2023 9:06 PM CDT Ray Conn MD PATHOLOGY/CYTOLOG Y [facility] [address] [place] [address], * COLONOSCOPY SCREENING (12/15/2023 12:00 AM CDT) [...] so consider alternative medication. Flower Saavedra PA-C [facility] 07/02/2023 Narrative 07/02/2023 4:54 PM CDT For Patients: Results are automatically released to your [facility] ([employer]) account once available, in compliance with federal regulations. This means that you may see your results before your provider has had a chance to review them. Please allow 2-3 business days for your provider to comment on the results. XR DXA Bone Mineral Density (BMD) EXAM LOCATION: [address] [address] PATIENT NAME: Nemesio Horta DATE OF : [...] two scanners are made by the same police judge. PROCEDURE: Dual-energy x-ray absorptiometry performed with routine [...] Documents on File Type Date Recorded Patient Production Clerk Expl anation Healthcare Directive 04/21/2014 12:18 PM A Jethro GEE, 03/[birth year]/2007 * Full Code (Latest Code Status on File) Date Activated Date Inactivated Comments 04/09/2022 12:28 PM 04/09/2022 6:46 PM Question Answer Comments Code Status Discussion: Reviewed Preferences Care Teams [employer] Relationship Specialty Start Date End Date Brianna Mckay PA [address] [place] [address] PCP - General Physician Field Mechanic 12/25/22
== END 2024-02-19 06:35 | disposition home or self-care (01) ==
LOC: AMB 02-21 06:11
PROVIDERS: PCP Student in an Organized Health Care Education/Training Program; Visit Provider Family Medicine
DX: R53.1 Weakness (principal); U07.1 COVID-19
CPT/HCPCS: A0425; A0429

== ENCOUNTER 2024-02-19 07:01 | Emergency (ER) | payer MEDICARE, SELFPAY ==
[2024-02-19 07:03] VITALS: BP 142/89; PULSE 73; RESP 20; TEMP 37.6; O2SAT 98; BMI 21.3
[2024-02-19] MEDS: 0.9 % SODIUM CHLORIDE 1000 ml 1,000 ML 500 ML IV (08:15)
[2024-02-19 08:18] LABS: Lactate* 1.3 mmol/L (0.5-1.9)
[2024-02-19 08:20] LABS: Basophils Absolute Auto 0.02 K/uL (0.00-0.30); Basophils Percent Auto 0.3 % (0.0-3.0); Eosinophils Absolute Auto 0.07 K/uL (0.00-0.50); Eosinophils Percent Auto 0.9 % (0.0-7.0); Hemoglobin* 15.6 gm/dL (12.0-16.0); Immature Granulocytes Abs Auto 0.01 K/uL (0.00-0.30); Immature Granulocytes Pct Auto 0.1 %; Lymphocytes Percent Auto 12.3 % (20-44); Mean Corpuscular HGB Conc 34 gm/dL (32-36); Mean Corpuscular Hemoglobin 31 pg (26-34); Mean Corpuscular Volume 90 fL (80-100); Monocytes Percent Auto 11.4 % (0.0-11.0); Platelet Count* 190 K/uL (140-440); RDW Coefficient of Variation % 12.9 % (11.5-15.5); Red Blood Count 5.12 m/uL (4.00-5.20); White Blood Count* 7.81 K/uL (4.50-11.00)
[2024-02-19 08:21] LABS: Slide Review Reflex No
--- OUTSIDE RECORDS SUMMARY | 2024-02-19 08:25 | XMS_ITS | Clinical Summary ---
Author Organization [facility] [facility] Address [place], [place] [address] Care Team Providers Care Chocolate Maker Name Role Phone Brianna Mckay Primary Care Provider [phone] Allergies No known active allergies Medications Medication Sig Dispensed Refills Start Date End Date Status calcium carbonate (CALTRATE) 600 mg calcium (1,500 mg) tablet Take 1,200 mg by mouth once daily. Not taking 0 03/05/2022 Active acetaminophen (TYLENOL EXTRA STRGTH) 500 mg tabletIndications: S/P placement of cardiac pacemaker Take 2 Tablets (1,000 mg) by mouth 3 times daily if needed for Pain (For mild pain.). Max acetaminophen dose: 4000mg in 24 hrs. 0 04/09/2022 Active alendronate (FOSAMAX) 70 mg tabletIndications: Senile osteoporosis Take 1 Tablet (70 mg) by mouth once a week in the morning. Take on empty stomach with full glass of water. Do not lie down or eat for 30 12 Tablet 3 07/29/2023 Active lisinopriL (PRINIVIL; ZESTRIL) 20 mg tabletIndications: Hypertension, unspecified type Take 1 Tablet (20 mg) by mouth once daily. 90 Tablet 2 08/04/2023 Active zinc gluconate 50 mg tablet Take 1 Tablet (50 mg) by mouth once daily. 09/24/2023 Active triamcinolone (ARISTOCORT; KENALOG) 0.1 % creamIndications:D ermatitis Apply topically to affected area(s) three times daily. 80 g 10/10/2023 Active polyethylene glycol-electrolyte (GOLYTELY) 236-22.74-6.74 -5.86 gram suspensionIndicati ons:Polyp of colon, unspecified part of colon, unspecified type Drink 2 liters the day before colonoscopy and 2 liters 6 hours before colonoscopy appointment 4000 mL 11/03/2023 Active sotaloL (BETAPACE) 80 mg tabletIndications: Paroxysmal atrial fibrillation (HC) TAKE ONE TABLET BY MOUTH EVERY DAY (EVERY 24 HOURS) 90 Tablet 1 12/03/2023 Active polyethylene glycol-electrolyte (GOLYTELY) 236-22.74-6.74 -5.86 gram suspensionIndicati ons:Encounter for screening colonoscopy Drink 1.5 liters (1& 1/2 bottles) the day before colonoscopy and 2 liters (remaining 1/2 bottle) 6 hours prior to colonoscopy appointment. 4000 mL 12/03/2023 Active amLODIPine (NORVASC) 5 mg tabletIndications: HTN (hypertension) Take 1 Tablet (5 mg) by mouth once daily. 90 Tablet 01/05/2024 Active warfarin (COUMADIN) 3 mg tabletIndications: New onset atrial fibrillation (HC),Anticoagulati on monitoring, INR range 2-3 Take by mouth 6 mg (3 mg x 2) every Mon, Wed, Fri; 7.5 mg (3 mg x 2.5) all other days in the evening OR as directed 210 Tablet 01/02/2024 Active hydroCHLOROthiazid e 12.5 mg tabletIndications: HTN (hypertension) Take 1 Tablet (12.5 mg) by mouth once daily. 90 Tablet 01/05/2024 Active nirmatrelvir-riton avir 300-100mg (PAXLOVID, EUA,) tabletIndications: COVID-19 virus infection Take 2 nirmatrelvir 150 mg pink-oval tablets and 1 ritonavir 100 mg white-oval tablet together twice daily for 5 days. Date of Symptom Onset: 02/16/24; 01/20/2024: CREATININE 0.84 mg/dL 30 Tablet 02/18/2024 4 Active Active Problems Problem Noted Date Diagnosed Date Pacemaker 06/14/2022 Paroxysmal atrial fibrillation 04/16/2022 New onset atrial fibrillation 01/24/2022 Anticoagulation monitoring, INR range 2-3 2021 Raynaud phenomenon 09/10/2021 Colon polyp 08/21/2018 Overview: Colonoscopy 08/2018 polyp, lymphocytic colitis, repeat in 5 years Colonoscopy 12/2023 TA, normal biopsy, repeat in 7 years Lymphocytic colitis 08/21/2018 Overview: Colonoscopy 08/2018 polyp, lymphocytic colitis, repeat in 5 years Colonoscopy 12/2023 TA, normal biopsy, repeat in 7 years H. pylori infection 07/28/2018 Overview: EGD 07/2018 H pylori gastritis HTN (hypertension) 12/26/2010 Other and unspecified hyperlipidemia 06/26/2007 Senile osteoporosis 06/26/2007 Overview: Fosamax 2003- Restarted 2020 Encounters Date Type Department Care Team Description 02/18/2024 1:35 PM CDT Phone Office Visit [address] [address] Brianna Mckay PA Covid-19 Positive Result (02/15 started as a runny nose/cold/02/16 positive results /feeling terrible, weak and not eating.) 02/18/2024 Telephone [facility] [address] [place] [address] Brianna Mckay PA Anticoagulation (BPA - PAXLOVID 300 MG (150 MG X 2)-100 MG TABLETS IN A DOSE PACK) 02/02/2024 2:00 PM CDT Orders Only [address] [address] Lab, [facility] 02/02/2024 Anticoagulation (warfarin) [facility] [address] [place] [address] 1, [facility] Anticoagulation 02/02/2024 Travel 01/20/2024 3:15 PM CDT Office Visit [address] [address] Brianna Mckay PA Blood Pressure 01/20/2024 Travel 01/05/2024 11:15 AM CDT Orders Only [address] [address] Lab, [facility] 01/05/2024 Anticoagulation (warfarin) [facility] [address] [place] [address] 1, [facility] Anticoagulation 01/05/2024 Travel 01/02/2024 Telephone [facility] [address] [place] [address] Brianna Mckay PA Anticoagulation 01/02/2024 Telephone [facility] [address] [place] [address] Brianna Mckay PA Refill Request (warfarin (COUMADIN) 3 mg tablet/) 01/02/2024 Telephone [facility] [address] [place] [address] Brianna Mckay PA Medication Management 01/02/2024 Refill [facility] [address] [place] [address] Brianna Mckay PA Refill Request (Hydrochlorothiazide, Warfarin) 01/02/2024 Refill [facility] [address] [facility] [address] [place] [address] Mulugeta Ren MD Refill Request (Carvedilol) 01/02/2024 Telephone [facility] [address] [place] [address] Brianna Mckay PA Medication Management 12/22/2023 10:00 AM CDT Orders Only [facility] [address] [place] [address] Lab, [facility] 12/22/2023 Anticoagulation (warfarin) [facility] [address] [place] [address] 1, [facility] Anticoagulation 12/22/2023 Travel 12/15/2023 11:45 AM CDT Office Visit [facility] [address] [place] [address] Ray Conn MD 12/15/2023 Lab Requisition [facility] [phone] Ray Conn MD 12/05/2023 11:10 AM CDT Preop Visit [facility] [place] [address] Brianna Mckay PA Preoperative Exam (Colonoscopy 12/15/[address] [facility] [address] Conn) 12/05/2023 Travel 12/03/2023 Anticoagulation (warfarin) [address] [address] 1, [facility] Anticoagulation (Chart update: Procedure Hold) 12/03/[address] [address] Brianna Mckay PA Medication Management 12/03/[address] [address] Ray Conn MD Questions 12/02/[address] [address] Brianna Mckay PA Refill Request (Sotalol) 12/01/2023 11:30 AM CDT Orders Only [address] [address] Lab, [facility] 12/01/[address] [address] Brianna Mckay PA Anticoagulation (HOLD ORDERS- Colonoscopy 12/15/23) 12/01/2023 Anticoagulation (warfarin) [address] [address] 1, [facility] Anticoagulation 12/01/2023 Travel 11/27/[address] [address] Ray Conn MD Screening 11/24/[address] [address] Brianna Mckay PA Referral from Last 3 Months Immunizations Name Administration [...] Outcome GA Total Labor Labor/2nd/3rd Weight Sex Type Anes PTL Francine A1 A5 Name Clin Last Filed Vital Signs Vital Sign Reading Time Taken Comments Blood Pressure 122/82 01/20/2024 2:23 PM CDT Pulse 85 01/20/2024 2:23 PM CDT Temperature 36.4 ??C (97.5 ??F) 08/04/2023 2:27 PM CS T Respiratory Rate 16 08/04/2023 2:27 PM GREY WASHER Oxygen Saturation 96% 01/20/2024 2:23 PM CDT Inhaled Oxygen Concentration - - Weight 63.4 kg (139 lb 11.2 oz) 01/20/2024 2:23 PM CDT Height 170.5 cm (5' 7.13) 12/05/2023 1 1:09 AM CDT Body Mass Index 21.8 12/05/2023 11:09 AM CDT Plan of Treatment Health Maintenance Due Date Last Done Comments [...] 10/02/2015 Pneumococcal series for age 65+ Completed , 06/17/2019 Tdap Completed 06/10/2022, 02/10/2013 DEXA/DXA scan for age 65+ Completed 2022, 06/25/2021, 07/21/2012, Additional history exists COVID-19 vaccine series Completed 01/01/20, 06/10/2023, 05/22/2022, Additional history exists Procedures Procedure Name Priority Date/Time Associated Diagnosis Comments INR,POCT Routine 02/02/2024 1:53 PM CDT New onset atrial fibrillation (HC) Anticoagulation monitoring, INR range 2-3 BASIC METABOLIC PANEL Routine 01/20/2024 2:47 PM CDT HTN (hypertension) INR,POCT Routine 01/05/2024 11:20 AM CDT New onset atrial fibrillation (HC) Anticoagulation monitoring, INR range 2-3 PROTIME-INR STAT 12/22/2023 9:59 AM CDT New onset atrial fibrillation (HC) Anticoagulation monitoring, INR range 2-3 LAB TRACKING EVENT Routine 12/15/2023 1: 25 PM CDT PATH TISSUE EXAM Routine 12/15/2023 1:25 PM CDT COLONOSCOPY SCREENING Routine 12/15/2023 12:00 AM CDT Polyp of colon, unspecified part [...] Relevant to Health Maintenance Results * (ABNORMAL) INR,POCT (02/02/2024 1:53 PM CDT) Only the most recent of3 resultswithin the time period is included. INR 2.1(H) <1.3 02/02/2024 1:56 PM CDT [facility] Blood BLOOD SPECIMEN / Unknown 02/02/2024 1:53 PM CDT 02/02/2024 1:56 PM CDT Narrative [facility] - 02/02/2024 1:56 PM CDT ?Therapeutic Range 2.0-3.0 for most anticoagulated patients 2.5-3.5 or 4.0 for high risk patients Brianna BARRIGA [facility] [address] [place] [address], * (ABNORMAL) BASIC METABOLIC PANEL (01/20/2024 2:47 PM CDT) Only the most recent of2 resultswithin the time period is included. SODIUM 142 136 - 145 mmol/L 01/21/2024 2:01 AM CDT [facility] POTASSIUM 3.8 3.5 - 5.1 mmol/L 01/21/2024 2:01 AM T [facility] CHLORIDE 105 98 - 107 mmol/L 01/21/2024 2:01 AM CDT [facility] CO2,TOTAL 28 22 - 29 mmol/L 01/21/2024 2:01 AM T [facility] ANION GAP 9 5 - 18 01/21/2024 2:01 AM T [facility] GLUCOSE 94 70 - 99 mg/dL 01/21/2024 2:01 AM CDT [facility] CALCIUM 9.3 8.8 - 10.2 mg/dL 01/21/2024 2:01 AM CDT [facility] BUN 13 8 - 23 mg/dL 01/21/2024 2:01 AM T [facility] CREATININE 0.84 0.50 - 0.90 mg/dL 01/21/2024 2:01 AM T [facility] BUN/CREAT RATIO 15 10 - 20 2:01 AM CDT [facility] eGFR 70(L) >90 mL/min/1.7 3m2 01/21/2024 2:01 AM CDT [facility] Comment:As of 2021, eG FR is calculated by the CKD-EPI creatinine equation without race adjustment. ??eGFR can be influenced by muscle mass, exercise, and diet. ??The reported eGFR is an estimation only and is only applicable if the renal function is stable. Blood BLOOD SPECIMEN / Unknown Venipuncture / Unknown 01/20/2024 2:47 PM CDT 01/20/2024 2:49 PM CDT Brianna BARRIGA [facility]MISTR[facility] [address] [place] [address], * (ABNORMAL) PROTIME-INR (12/22/2023 9:59 AM CDT) INR 1.5(H) <1.3 12/22/2023 3:38 PM CDT [facility] PROTIME 16.2(H) 10.3 - 12.3 sec 12/22/2023 3:38 PM CDT [facility] Blood BLOOD SPECIMEN / Unknown Venipuncture / Unknown 12/22/2023 9:59 AM CDT 12/22/2023 10:00 AM CDT Narrative [facility] - 12/22/2023 3:38 PM CDT ?Therapeutic Range 2.0-3.0 for most anticoagulated [...] patient is on UFH. Brianna BARRIGA HEMATOLOGY Performing Organization Address [facility] de Phone Number [facility] [address] [place] [address], * LAB TRACKING EVENT (12/15/2023 1:25 PM CDT) Other (Other) Client Collect / Unknown 12/15/2023 1:25 PM CDT 12/15/2023 8:40 PM CDT Ray Conn MD LAB BILL ONLY Performing Organization Address [facility] de Phone Number [facility] [address] [place] [address], * PATH TISSUE EXAM (12/15/2023 1:25 PM CDT) Case Report Pathology Report ?Case: [id number] ? Authorizing Provider: ??Ray Conn MD ?? Collected: ? 12/15/2023 1325 ? Ordering Location: ? [facility] ?Received: ?12/15/[address] ? Pathologist: ? Maikol Weir ? IV, MD ? Specimens: ?? A) - Colon Biopsy, Random ? B) - Transverse Colon Polyp ? 12/16/2023 1:39 PM CDT [facility] Final Diagnosis A) COLON, RANDOM, BIOPSY: 1. Normal colonic mucosa 2. Negative for microscopic, active, and chronic colitis B) COLON, TRANSVERSE, POLYPECTOMY: 1. Tubular adenoma 2. Negative for high grade dysplasia 3. Per the colonoscopy report: ?? a. Polyp size: 3 mm ?? b. Resection: Complete ?? c. Retrieval: Complete 12/16/2023 1:39 PM CDT [facility] Clinical Information Ms. Horta is a 83 y.o. who presents for surveillance colonoscopy. Colonoscopy findings include: -1, 3 mm transverse polyp -Sigmoid diverticulosis 12/16/2023 1:39 PM CDT [facility] Gross Description A) Received in formalin are 9 cronin mucosal fragments averaging 4 mm in greatest dimension, which are entirely submitted in one cassette. It is labeled with the patient's name and designated random colon biopsies. B) Received in formalin is a cronin mucosal fragment measuring 5 mm in greatest dimension, which is entirely submitted in one cassette. It is labeled with the patient's name and designated transverse colon polyp. Vicente Flower 12/15/2023 9:09 PM 12/16/2023 1:39 PM CDT [facility] Microscopic Description The final diagnosis is based on microscopic examination of appropriate sections of all specimens. 12/16/2023 1:39 PM CDT [facility] Additional Information Interpreted at [facility] - [address], [place] [address] 12/16/2023 1:39 PM CDT [facility] Other (Colon Biopsy) 12/15/2023 1:25 PM CDT 12/15/2023 9:06 PM CDT Specimen (specimen) (Transverse Colon Polyp) 12/15/2023 1:25 PM CDT 12/15/2023 9:06 PM CDT Ray Conn MD PATHOLOGY/CYTOLOG Y [facility] [address] [place] [address], * COLONOSCOPY SCREENING (12/15/2023 12:00 AM CDT) Brianna BARRIGA GI PROCEDURE ORD * (ABNORMAL) XR DXA BONE DENSITY [...] so consider alternative medication. Flower Saavedra PA-C [facility] 07/02/2023 Narrative 07/02/2023 4:54 PM CDT For Patients: Results are automatically released to your [employer] ([employer]) account once available, in compliance with federal regulations. This means that you may see your results before your provider has had a chance to review them. Please allow 2-3 business days for your provider to comment on the results. XR DXA Bone Mineral Density (BMD) EXAM LOCATION: [facility] [address] [facility] [address] PATIENT NAME: Nemesio Horta DATE OF : [...] two scanners are made by the same workforce development specialist. PROCEDURE: Dual-energy x-ray absorptiometry performed with routine [...] Documents on File Type Date Recorded Patient Airway Controller Expl anation Healthcare Directive 04/21/2014 12:18 PM Ne GEE, 03/11/2007 * Full Code (Latest Code Status on File) Date Activated Date Inactivated Comments 04/09/2022 12:28 PM 04/09/2022 6:46 PM Question Answer Comments Code Status Discussion: Reviewed Preferences Care Teams Chocolate Maker Relationship Specialty Start Date End Date Brianna Mckay PA [address] [place] [address] PCP - General Physician Attendant Lodging Facilities 12/25/22
[2024-02-19 08:39] LABS: Albumin* 4.3 g/dL (3.3-5.0); Chloride* 94 mmol/L (96-114)
[2024-02-19 08:40] LABS: Potassium* 3.4 mmol/L (3.6-5.1); Sodium* 130 mmol/L (135-149)
[2024-02-19 08:42] LABS: Alkaline Phosphatase* 68 U/L (40-150); Anion Gap 6 mEq/L (7-15); Aspartate Amino Transferase* 38 U/L (12-35); Bilirubin Direct* 0.3 mg/dL (0.0-0.5); Bilirubin Total* 1.2 mg/dL (0.1-1.5); Carbon Dioxide* 30 mmol/L (20-32); Creatinine* 0.7 mg/dL (0.5-1.5); Estimated Glomerular Filt Rate 87 ml/min
[2024-02-19 08:43] LABS: Alanine Aminotransferase* 21 U/L (4-35); Blood Urea Nitrogen* 15 mg/dL (7-30); Calcium* 8.6 mg/dL (8.4-10.6); Glucose* 109 mg/dL (60-115)
[2024-02-19 08:45] LABS: C Reactive Protein* 2.4 mg/dL (0.5-1.0)
--- NOTE | 2024-02-19 08:50 | ED_ITS ---
HPI - General Adult General Chief complaint: Weakness Stated complaint: weakness Time Seen by Provider: 02/19/24 07:51 Source: patient Mode of arrival: ambulatory Limitations: no limitations History of Present Illness HPI narrative: 83-year-old female coming in today complaining of weakness. Patient states that she tested herself for COVID at home 2 days ago and tested positive. She was placed on Paxil bid, had her 1st dose yesterday and 1 today. She states that she feels very weak and she has no appetite. She states that she has not been able to eat anything in the last couple of days, has been trying to drink fluids. She denies headache, neck pain. She does complain of a sore throat. She states that last time she had COVID she had a swollen uvula, she believes the same thing is happening this time with this time is not as bad as it was last time. She denies chest pain or shortness of breath. She is not coughing. She denies fevers or chills but does feel sweaty on and off. She denies abdom inal discomfort, urinary symptoms such as increased frequency, urgency or dysuria, she denies any diarrhea or constipation. She denies any vertiginous symptoms. She denies feeling lightheaded. She states that she did fall on Friday when she felt so weak she just slid down the wall. She has not fallen since. She does live by herself. Related Data Home Medications ?Medication ?Instructions ?Recorded ?Confirmed alendronate 70 mg tablet 70 mg PO QWEEK 06/14/22 02/19/24 calcium carbonate 600 mg PO BID 06/14/22 02/19/24 carvedilol 6.25 mg tablet 6.25 mg PO BID 06/14/22 02/19/24 cholecalciferol (vitamin D3) 25 25 mcg PO QDAY 06/14/22 02/19/24 mcg (1,000 unit) capsule diphenhydramine HCl 25 mg capsule 25 mg PO QHS PRN 06/14/22 02/19/24 (Benadryl) lisinopril 20 mg tablet 20 mg PO QDAY 06/14/22 02/19/24 multivitamin with folic acid 400 1 tab PO QAM 06/14/22 02/19/24 mcg tablet sotalol 80 mg tablet 80 mg PO ONCE 06/14/22 02/19/24 warfarin 3 mg tablet 3 mg PO DIRECTED 06/14/22 02/19/24 amlodipine 5 mg tablet 5 mg PO DAILY 02/19/24 02/19/24 hydrochlorothiazide 12.5 mg tablet 12.5 mg PO DAILY 02/19/24 02/19/24 nirmatrelvir 300 mg (150 mg 1 ea PO DIRECTED 02/19/24 02/19/24 x2)-ritonavir 100 mg tablet,dose pack (Paxlovid) Allergies Allergy/AdvReac Type Severity Reaction Status Date / Time No Known Drug Allergies Allergy Verified 02/19/24 07:09 Review of Systems Status of ROS: Reports: 10 or more systems reviewed and unremarkable except as noted in History and below [facility] Medical History (Updated 02/19/24 @ 09:57 by Ivette Higgins MD) Pacemaker ?Z95.0 - Presence of cardiac pacemaker (ICD-10) Atrial fibrillation ?I48.91 - Unspecified atrial fibrillation (ICD-10) Raynaud phenomenon ?I73.00 - Raynaud's syndrome without gangrene (ICD-10) Other and unspecified hyperlipidemia ?E78.5 - Hyperlipidemia, unspecified (ICD-10) Hypertension ?I10 - Essential (primary) hypertension (ICD-10) Surgical History H/O: hysterectomy ?Z90.710 - Acquired absence of both cervix and uterus (ICD-10) Social History Smoking Status: Never smoker Do you use any of these nicotine containing products: None Second hand tobacco smoke exposure: No How often do you have a drink containing alcohol: 4 or more times a week How many standard drinks containing alcohol do you have on a typical day: 1 or 2 How often do you have six or more drinks on one occasion: Never AUDIT-C Alcohol total score: 4 Non-prescribed substance use: denies use Caffeine: No Are you using contraception or practicing any form of control: No service: No Exam Narrative: Exam Narrative: Well-nourished well-developed patient in no acute distress. Alert and oriented. Answers questions appropriately. Mood and affect are appropriate. Thoughts are goal oriented and rational. No tangential or magical thinking noted. Patient speaks in full sentences without needing to catch her breath. Speech is not slurred or pressure, difficulty speaking or breathing. Does not sound congested. HEENT: Normocephalic atraumatic. Pupils are equally round reactive to light. Extraocular muscles are intact. Conjunctivae are moist without any icterus noted. Dry mucous membranes. Posterior pharynx shows a slightly erythematous, enlarged and boggy uvula. It is not tight and shiny, does not appear indurated. There is no erythema of the soft palate. Neck is soft without any lymphadenopathy or thyromegaly. No masses are appreciated. Cardiovascular: Heart is regular rate and rhythm S1 and S2 are present without any murmurs. Lungs: Clear to auscultation bilaterally no wheezes rhonchi or rales are appreciated. Patient takes deep breaths without any discomfort. Abdomen: Soft and nontender nondistended with normal bowel sounds. Extremities: Bilateral lower extremities are without edema. Normal DP and PT pulses. Skin: Well perfused without any obvious rashes. Const: Vital Signs, click to edit/add: Vital Signs - 24 hr 02/19/24 07:03 02/19/24 09:01 Temperature 99.6 F Pulse Rate [Right Pulse Oximeter] 73 66 Respiratory Rate 20 18 Blood Pressure [Ri ght Upper Arm] 142/89 H 139/68 Pulse Oximetry 98 95 Oxygen Delivery Me thod Room Air Room Air Course Course ED Course: All EKG, read by me, shows normal sinus rhythm, premature atrial complexes, pulse 69. CBC was unremarkable. Sodium was low at 130. Potassium low at 3.4. Chloride low at 94. LFTs unremarkable. Troponin normal. CRP slightly elevated at 2.4. Patient did receive 1 L of normal saline over 2 hours, 20 mEq potassium chloride orally. Because of her sore throat I did give her a dose of oral dexamethasone. UA does show 2+ blood, 5-10 rbc's. Vital Signs Vital signs: Initial Vital Signs Temperature 99.6 F 02/19/24 07:03 Temperature Source Temporal Artery Scan 02/19/24 07:03 Pulse Rate 73 02/19/24 07:03 Respiratory Rate 20 02/19/24 07:03 Blood Pressure 142/89 H 02/19/24 07:03 Blood Pressure Mean 106 H 02/19/24 07:03 Blood Pressure Position Sitting 02/19/24 07:03 Pulse Oximetry 98 02/19/24 07:03 Oxygen Delivery Method Room Air 02/19/24 07:03 Vital Signs Temperature 99.6 F 02/19/24 07:03 Pulse Rate 73 02/19/24 07:03 Respiratory Rate 20 02/19/24 07:03 Blood Pressure 142/89 H 02/19/24 07:03 Pulse Oximetry 98 02/19/24 07:03 Oxygen Delivery Method Room Air 02/19/24 07:03 Temperature 99.6 F 02/19/24 07:03 Pulse Rate 66 02/19/24 09:01 Respiratory Rate 18 02/19/24 09:01 Blood Pressure 139/68 02/19/24 09:01 Pulse Oximetry 95 02/19/24 09:01 Oxygen Delivery Method Room Air 02/19/24 09:01 Medications Administered Medications: Generic Name Dose Route Start Last Admin Trade Name Freq PRN Reason Stop Dose Admin Sodium Chloride 1,000 mls @ 500 mls/hr 02/19/24 08:01 02/19/24 08:15 0.9 % Sodium Chloride 1000 Ml IV 02/19/24 10:00 500 mls/hr .Q2H JENNIE Administration Discontinued Medications Generic Name Dose Route Start Last Admin Trade Name Freq PRN Reason Stop Dose Admin Dexamethasone 10 mg 02/19/24 08:49 02/19/24 09:09 Dexamethasone 4 Mg Tablet PO 02/19/24 08:50 10 mg ONCE ONE Administration Potassium Chloride 20 meq 02/19/24 08:49 02/19/24 09:09 Potassium Chloride 10 Meq Capsule Er PO 02/19/24 08:50 20 meq ONCE ONE Administration Medical Decision Making [facility] Narrative Medical decision making narrative: 83-year-old female COVID-19, weakness, electrolyte abnormalities. Treated per above. Recommend follow-up with primary care provider in one next week for repeat electrolyte check. Lab Data Lab results reviewed: Yes I reviewed the patient's lab results Labs: Lab Results 02/19/24 02/19/24 Range/Units 08:13 08:51 WBC 7.81 (4.50-11.00) K/uL RBC 5.12 (4.00-5.20) m/uL Hgb 15.6 (12.0-16.0) gm/dL Hct 46.0 (33.0-51.0) % MCV 90 (80-100) fL MCH 31 (26-34) pg MCHC 34 (32-36) gm/dL RDW Coeff of Clemencia 12.9 (11.5-15.5) % Plt Count 190 (140-440) K/uL Neut % (Auto) 75.0 H (42.0-72.0) % Lymph % (Auto) 12.3 L (20-44) % [place] % (Auto) 11.4 H (0.0-11.0) % Eos % (Auto) 0.9 (0.0-7.0) % Baso % (Auto) 0.3 (0.0-3.0) % Neut # (Auto) 5.90 (1.7-7.0) K/uL Lymph # (Auto) 1.00 (0.90-2.90) K/uL [place] # (Auto) 0.90 (0.00-0.90) K/UL Eos # (Auto) 0.07 (0.00-0.50) K/uL Baso # (Auto) 0.02 (0.00-0.30) K/uL Abs Immat Gran (auto) 0.01 (0.00-0.30) K/uL Imm/Tot Granulo (auto) 0.1 % Sodium 130 L (135-149) mmol/L Potassium 3.4 L (3.6-5.1) mmol/L Chloride 94 L (96-114) mmol/L Carbon Dioxide 30 (20-32) mmol/L Anion Gap 6 L (7-15) mEq/L BUN 15 (7-30) mg/dL Creatinine 0.7 (0.5-1.5) mg/dL Estimated Creat Clear 41.30 Estimated GFR 87 ml/min Glucose 109 (60-115) mg/dL Lactate 1.3 (0.5-1.9) mmol/L Calcium 8.6 (8.4-10.6) mg/dL Total Bilirubin 1.2 (0.1-1.5) mg/dL Direct Bilirubin 0.3 (0.0-0.5) mg/dL AST 38 H (12-35) U/L ALT 21 (4-35) U/L Alkaline Phosphatase 68 (40-150) U/L Troponin I < 0.01 L (0.01-0.04) ng/mL C-Reactive Protein 2.4 H (0.5-1.0) mg/dL Total Protein 8.0 (6.0-8.3) g/dL Albumin 4.3 (3.3-5.0) g/dL Urine Color Yellow (Yellow) Urine Appearance Clear (Clear) Urine pH 7.0 (5.0-8.5) Ur Specific [place] 1.020 (1.000-1.030) Urine Protein 1+ A (Negative) Urine Glucose (UA) Negative (Negative) Urine Ketones 2+ A (Negative) Urine Blood 2+ A (Negative) Urine Nitrite Negative (Negative) Urine Bilirubin Negative (Negative) Urine Urobilinogen 0.2 (0.2-1.0) Ur Leukocyte Esterase Negative (Negative) Urine RBC 5-10 A (0-2) Urine WBC 0-2 (0-5) Ur Squamous Epith Cells Few (None-Few) Urine Bacteria None (None) ECG Data Attestation: I personally reviewed and interpreted this ECG as follows: Discharge Plan Discharge Clinical Impression: COVID-19, Weakness, Hyponatremia, Hypokalemia Patient Disposition: Home, Self-Care Condition: Stable Additional Instructions: Some your electrolytes were low today, recommend you follow-up with your primary care provider in approximately 1 week to recheck you sodium and potassium levels. Return to the ER if you develop any difficulty breathing. Increase your daily fluid intake. Okay to continue taking Paxlovid as directed. Lastly, there was a little bit of blood in your urine. You should also have a repeat urine check when you see your doctor next week. Prescriptions: No Action lisinopril 20 mg tablet 20 mg PO QDAY warfarin 3 mg tablet 3 mg PO DIRECTED sotalol 80 mg tablet 80 mg PO ONCE alendronate 70 mg tablet 70 mg PO QWEEK calcium carbonate 600 mg calcium (1,500 mg) tablet 600 mg PO BID diphenhydramine HCl [Benadryl] 25 mg capsule 25 mg PO QHS PRN carvedilol 6.25 mg tablet 6.25 mg PO BID Rx Instructions: must administer with a meal/food multivitamin with folic acid 400 mcg tablet 1 tab PO QAM cholecalciferol (vitamin D3) 25 mcg (1,000 unit) capsule 25 mcg PO QDAY amlodipine 5 mg tablet 5 mg PO DAILY hydrochlorothiazide 12.5 mg tablet 12.5 mg PO DAILY Paxlovid 300 mg (150 mg x 2)-100 mg tablets,dose pack 1 ea PO DIRECTED Follow Up/Referrals: Brianna Mckay PA-C [Primary Care Provider] - Stand Alone Forms: Ogone Info Instructions
[2024-02-19 08:58] LABS: Troponin I* < 0.01 ng/mL (0.01-0.04)
[2024-02-19 09:01] VITALS: BP 139/68; PULSE 66; RESP 18; O2SAT 95
[2024-02-19 09:08] LABS: Appearance Urine Clear (Clear); Bilirubin Urine Negative (Negative); Blood Urine 2+ (Negative); Color Urine Yellow (Yellow); Glucose Urine Negative (Negative); Ketones Urine 2+ (Negative); Leukocyte Esterase Urine Negative (Negative); Nitrite Urine Negative (Negative); Protein Urine 1+ (Negative); Urobilinogen Urine 0.2 (0.2-1.0)
[2024-02-19] MEDS: POTASSIUM CHLORIDE 10 MEQ CAPSULE ER 20 MEQ PO (09:09)
[2024-02-19] MEDS: dexAMETHasone 4 MG TABLET 10 MG PO (09:09)
[2024-02-19 09:48] LABS: Squamous Epithelial Cell Urine Few (None-Few); WBC Urine 0-2 (0-5)
== END 2024-02-19 10:04 | disposition home or self-care (01) ==
PROVIDERS: Emergency Provider Family Medicine; PCP Student in an Organized Health Care Education/Training Program
DX: U07.1 COVID-19 (principal); R53.1 Weakness; E87.1 Hypo-osmolality and hyponatremia; E87.6 Hypokalemia
CPT/HCPCS: 36415; 80048; 80076; 81001; 83605; 84484; 85025; 86140; 87086; 93005; 96360; 99284; A9270; J7030

== ENCOUNTER 2024-07-30 20:16 | Emergency (ER) | payer MEDICARE, SELFPAY ==
[2024-07-30 20:25] VITALS: BP 120/73; PULSE 61; RESP 16; TEMP 36.1; O2SAT 96
--- NOTE | 2024-07-30 20:40 | CRLHL7_ITS ---
For Patients: As a result of the Cures Act, medical imaging exams and procedure reports are released immediately into your electronic medical record. You may view this report before your referring provider. If you have questions, please contact your health care provider. Indication: Broken dentition after head injury Technique: CT through the maxillofacial structures with multiplanar reformats without contrast Comparison: None Findings: Orbits: Periorbital tissues are unremarkable. Intraorbital tissues are unremarkable. No orbital fracture appreciated. Paranasal sinuses: No acute abnormality appreciated. Opacified right sphenoid sinus with findings of chronic sinusitis. Mastoid air cells: No significant abnormality appreciated. Maxilla: Fracture of tooth 9. This does not appear to extend into the tooth root. Periapical lucency of tooth 15. Mandible: Incompletely visualized. Visualized portion demonstrates no acute fracture. Zygomatic arch, squamous temporal bone, and pterygoid plates: No acute fracture. Nasal bones: No acute fracture. Visualized cervical spine: No acute abnormality appreciated. Other: No other significant abnormality appreciated. Impression: Fracture through tooth 9 without visualized extension into the root. Allowing for incomplete visualization of the mandible, no other acute abnormality is appreciated. Please note that all CT scans at this facility use dose modulation, iterative reconstruction, and/or weight-based dosing when appropriate to reduce radiation dose to as low as reasonably achievable. Dictated by Isaac Grant MD @ 07/30/2024 9:20:54 PM (Electronically Signed)
--- NOTE | 2024-07-30 20:40 | CRLHL7_ITS ---
For Patients: As a result of the Century Cures Act, medical imaging exams and procedure reports are released immediately into your electronic medical record. You may view this report before your referring provider. If you have questions, please contact your health care provider. Indication: Broken dentition after head injury Technique: Noncontrast CT through the head with multiplanar reformats Comparison: None Findings: Brain: No acute hemorrhage. No acute infarct. No significant mass effect or midline shift. No gross evidence of a mass lesion or cerebral edema. Moderate to severe chronic microvascular ischemic disease. [id number] global parenchymal volume loss. Ventricles: No acute abnormality appreciated. Calvarium and soft tissues: Left posterior scalp contusion, no underlying fracture appreciated. Impression: Left posterior scalp contusion, no other acute abnormality appreciated. Please note that all CT scans at this facility use dose modulation, iterative reconstruction, and/or weight-based dosing when appropriate to reduce radiation dose to as low as reasonably achievable. Dictated by Isaac Grant MD @ 07/30/2024 9:18:45 PM (Electronically Signed)
--- NOTE | 2024-07-30 20:56 | ED.GENADULT ---
HPI - General Adult General Chief complaint: Fall/Minor Trauma Stated complaint: thinks she fainted and fell, hit face,bump on head Time Seen by Provider: 07/30/24 20:40 History of Present Illness HPI narrative: pt stood up and passed out and hit back of head . TTA called stab 2 84-year-old woman presenting to the emergency department with her daughter TT activation upon arrival due to head injury. Had a had cocktail this evening; this would not necessarily be unusual. Went to get up and got to her kitchen counter where she had been feeling lightheaded. Fell forward striking her teeth on the counter and then falling backwards striking her head. She is not having neck or back pain. No chest pain. No shortness of breath. A sensation of irregular rapid heart rate as got lightheaded. Noted trauma to her teeth which she ruefully admits is not the worst thing as maybe she can finally get them fixed. They have been overlapping for years as apparent on exam. Lot of pain in the back of the head where she fell back striking her head apparently on the floor. Review of records shows history of paroxysmal atrial fibrillation and anticoagulated with Coumadin. On rate control Related Data Home Medications ?Medication ?Instructions ?Recorded ?Confirmed alendronate 70 mg tablet 70 mg PO QWEEK 06/14/22 02/19/24 calcium carbonate 600 mg PO BID 06/14/22 02/19/24 carvedilol 6.25 mg tablet 6.25 mg PO BID 06/14/22 02/19/24 cholecalciferol (vitamin D3) 25 25 mcg PO QDAY 06/14/22 02/19/24 mcg (1,000 unit) capsule diphenhydramine HCl 25 mg capsule 25 mg PO QHS PRN 06/14/22 02/19/24 (Benadryl) lisinopril 20 mg tablet 20 mg PO QDAY 06/14/22 02/19/24 multivitamin with folic acid 400 1 tab PO QAM 06/14/22 02/19/24 mcg tablet sotalol 80 mg tablet 80 mg PO ONCE 06/14/22 02/19/24 warfarin 3 mg tablet 3 mg PO DIRECTED 06/14/22 02/19/24 amlodipine 5 mg tablet 5 mg PO DAILY 02/19/24 02/19/24 hydrochlorothiazide 12.5 mg tablet 12.5 mg PO DAILY 02/19/24 02/19/24 nirmatrelvir 300 mg (150 mg 1 ea PO DIRECTED 02/19/24 02/19/24 x2)-ritonavir 100 mg tablet,dose pack (Paxlovid) Allergies Allergy/AdvReac Type Severity Reaction Status Date / Time No Known Drug Allergies Allergy Verified 02/19/24 07:09 Review of Systems Status of ROS: Reports: 6 or more systems reviewed and unremarkable except as noted in History and below [facility] Medical History Pacemaker ?Z95.0 - Presence of cardiac pacemaker (ICD-10) Atrial fibrillation ?I48.91 - Unspecified atrial fibrillation (ICD-10) Raynaud phenomenon ?I73.00 - Raynaud's syndrome without gangrene (ICD-10) Other and unspecified hyperlipidemia ?E78.5 - Hyperlipidemia, unspecified (ICD-10) Hypertension ?I10 - Essential (primary) hypertension (ICD-10) Surgical History H/O: hysterectomy ?Z90.710 - Acquired absence of both cervix and uterus (ICD-10) Social History Smoking Status: Never smoker Do you use any of these nicotine containing products: None Second hand tobacco smoke exposure: No How often do you have a drink containing alcohol: 4 or more times a week How many standard drinks containing alcohol do you have on a typical day: 1 or 2 How often do you have six or more drinks on one occasion: Never AUDIT-C Alcohol total score: 4 Non-prescribed substance use: denies use Caffeine: No Are you using contraception or practicing any form of control: No service: No Exam Narrative: Exam Narrative: Vitals are noted Primary survey Is breathing easily with open airway Small bleeding from her lower lip and a little bit at upper front tooth GCS of 15, pupils are 4 mm and equal and briskly reactive, she is moving all extremities without apparent difficulty Secondary survey Head with mild swelling at the occipital scalp. Not particularly tender here. Tooth 9. Is broken horizontally just at about the gumline. Tooth is still present. There is some overlap of tooth 8 and 9. There is blood at the gumline of tooth 9. 1 cm diagonal laceration on the vermilion aspect of the lower lip is oozing a little bit of blood. On the outer skin of the lower lip there also appears to be a subcentimeter laceration. Neck is supple nontender. Chest - She is breathing easily. Lungs are clear. No pain to palpation over the clavicles or shoulders. Raising her arms overhead without difficulty. Heart in regular rate and rhythm today. Abdomen is soft and nontender. Back is nontender without deformity or abrasion. Const: Vital Signs, click to edit/add: Vital Signs - 24 hr 07/30/24 20:25 07/30/24 21:00 07/30/24 22:36 Temperature 97.0 F L 97.0 F L Pulse Rate [Right Radial] 61 61 Pulse Rate [orthos tatic lying Right Radial] 79 Pulse Rate [orthos tatic sitting Righ t Radial] 84 Pulse Rate [orthos tatic standing Rig ht Radial] 64 Respiratory Rate 16 16 Blood Pressure [Ri ght Upper Arm] 120/73 120/73 Blood Pressure [or thostatic lying Ri ght Arm] 109/76 Blood Pressure [or thostatic sitting Right Arm] 116/66 Blood Pressure [or thostatic standing Right Arm] 118/61 Pulse Oximetry 96 96 Oxygen Delivery Me thod Room Air Room Air 07/30/24 23:14 Temperature 97.2 F L Pulse Rate [Right Radial] 71 Pulse Rate [orthos tatic lying Right Radial] Pulse Rate [orthos tatic sitting Righ t Radial] Pulse Rate [orthos tatic standing Rig ht Radial] Respiratory Rate 16 Blood Pressure [Ri ght Upper Arm] 116/76 Blood Pressure [or thostatic lying Ri ght Arm] Blood Pressure [or thostatic sitting Right Arm] Blood Pressure [or thostatic standing Right Arm] Pulse Oximetry Oxygen Delivery Me thod Documenting provider has reviewed patient's vital signs: yes Course Vital Signs Vital signs: Initial Vital Signs Temperature 97.0 F L 07/30/24 20:25 Temperature Source Tympanic 07/30/24 20:25 Pulse Rate 61 07/30/24 20:25 Pulse Rhythm Regular 07/30/24 20:25 Pulse Strength 3+ Normal 07/30/24 20:25 Respiratory Rate 16 07/30/24 20:25 Blood Pressure 120/73 07/30/24 20:25 Blood Pressure Mean 88 07/30/24 20:25 Pulse Oximetry 96 07/30/24 20:25 Oxygen Delivery Method Room Air 07/30/24 20:25 Vital Signs Temperature 97.0 F L 07/30/24 20:25 Pulse Rate 61 07/30/24 20:25 Respiratory Rate 16 07/30/24 20:25 Blood Pressure 120/73 07/30/24 20:25 Pulse Oximetry 96 07/30/24 20:25 Oxygen Delivery Method Room Air 07/30/24 20:25 Temperature 97.2 F L 07/30/24 23:14 Pulse Rate 71 07/30/24 23:14 Respiratory Rate 16 07/30/24 23:14 Blood Pressure 116/76 07/30/24 23:14 Pulse Oximetry 96 07/30/24 21:00 Oxygen Delivery Method Room Air 07/30/24 21:00 Medical Decision Making MDM Narrative Medical decision making narrative: Will need to image face and head monitor on inside sales lead. She is clear that neck is not tender. Goes not appear to be intoxicated in any way. This appears to have been orthostatic fall. Was not feeling unwell prior to this event. Sodium was 130 in January with some replacement following a COVID-19 diagnosis. Will be monitored in the emergency department. EKG is reassuring as below As noted is on rate control with beta-mina. This may have contributed. Hemoglobin few months ago was 15.6 CT head independently reviewed by me looks to be without acute abnormality other than some posterior soft tissue swelling. CT face independently reviewed by me shows a fracture in tooth 9 consistent with physical exam. I do not see any bony fracture elsewhere. Technique: CT through the maxillofacial structures with multiplanar reformats without contrast Comparison: None Findings: Orbits: Periorbital tissues are unremarkable. Intraorbital tissues are unremarkable. No orbital fracture appreciated. Paranasal sinuses: No acute abnormality appreciated. Opacified right sphenoid sinus with findings of chronic sinusitis. Mastoid air cells: No significant abnormality appreciated. Maxilla: Fracture of tooth 9. This does not appear to extend into the tooth root. Periapical lucency of tooth 15. Mandible: Incompletely visualized. Visualized portion demonstrates no acute fracture. Zygomatic arch, squamous temporal bone, and pterygoid plates: No acute fracture. Nasal bones: No acute fracture. Visualized cervical spine: No acute abnormality appreciated. Other: No other significant abnormality appreciated. Impression: Fracture through tooth 9 without visualized extension into the root. Allowing for incomplete visualization of the mandible, no other acute abnormality is appreciated. Did irrigate this wound as it appears to be through and through. Is quite uncomfortable. Only lightly oozing and she would prefer not to have it sutured. Has only been lightly oozing and is approximated During time in the emergency department there were no events. Orthostatics were tested here and were negative nor was she symptomatic During time here we did attempt to reach out to a dentist. Unable to raise anyone at this time of night. Appears well to leave the emergency department. See patient discharge plan for further discussion Can apply antibiotic ointment 2 to 3 times a day on the cuts. I would ice the back of your head 2-3 times daily over the next few days. Yes can take acetaminophen up to 1000 mg per dose. See handout for dental care resources. Have indicated one that is most likely to be open. Would be good to be seen as soon as possible. I would also place a call into your primary care dental clinic. Take this disc of images with you as well as copies of the radiology over-read. Signs or symptoms of a concussion might be nausea or headache upon exertion which can also be an indication to back off that level of activity and reassess in a week.? Concussion can also be represented by smoldering nausea or smoldering headache, difficulty with concentration, mood lability, general somnolence, sense of persistent fog or dizziness/lightheadedness.? If these symptoms are becoming apparent and continuing beyond 7-10 days, be re-evaluated for further recommendations. Was a pleasure caring for you. Happy holidays. Medical Records Medical records reviewed: Yes I reviewed the patient's medical records ECG Data Attestation: I personally reviewed and interpreted this ECG as follows: (Sinus rhythm. Rate of 70. Looks like a PAC or 2) Discharge Plan Discharge Clinical Impression: Fracture of tooth, Laceration of lip, Closed head injury, Hematoma Patient Disposition: Home w/ Parent or Adult Condition: Improved Additional Instructions: Can apply antibiotic ointment 2 to 3 times a day on the cuts. I would ice the back of your head 2-3 times daily over the next few days. Yes can take acetaminophen up to 1000 mg per dose. See handout for dental care resources. Have indicated one that is most likely to be open. Would be good to be seen as soon as possible. I would also place a call into your primary care dental clinic. Take this disc of images with you as well as copies of the radiology over-read. Signs or symptoms of a concussion might be nausea or headache upon exertion which can also be an indication to back off that level of activity and reassess in a week.? Concussion can also be represented by smoldering nausea or smoldering headache, difficulty with concentration, mood lability, general somnolence, sense of persistent fog or dizziness/lightheadedness.? If these symptoms are becoming apparent and continuing beyond 7-10 days, be re-evaluated for further recommendations. Was a pleasure caring for you. Happy holidays. Prescriptions: No Action lisinopril 20 mg tablet 20 mg PO QDAY warfarin 3 mg tablet 3 mg PO DIRECTED sotalol 80 mg tablet 80 mg PO ONCE alendronate 70 mg tablet 70 mg PO QWEEK calcium carbonate 600 mg calcium (1,500 mg) tablet 600 mg PO BID diphenhydramine HCl [Benadryl] 25 mg capsule 25 mg PO QHS PRN carvedilol 6.25 mg tablet 6.25 mg PO BID Rx Instructions: must administer with a meal/food multivitamin with folic acid 400 mcg tablet 1 tab PO QAM cholecalciferol (vitamin D3) 25 mcg (1,000 unit) capsule 25 mcg PO QDAY amlodipine 5 mg tablet 5 mg PO DAILY hydrochlorothiazide 12.5 mg tablet 12.5 mg PO DAILY Paxlovid 300 mg (150 mg x 2)-100 mg tablets,dose pack 1 ea PO DIRECTED Follow Up/Referrals: Brianna Mckay PA-C [Primary Care Provider] - Stand Alone Forms: [employer] Info Instructions
[2024-07-30 21:00] VITALS: BP 120/73; PULSE 61; RESP 16; TEMP 36.1; O2SAT 96
--- OUTSIDE RECORDS SUMMARY | 2024-07-30 21:37 | XMS_ITS | Clinical Summary ---
Author Organization [facility] Address [place], [place] [address] Care Team Providers Care Bottom Scrubber Name Role Phone Brianna Mckay Primary Care Provider [phone] Allergies No known active allergies Medications Medication Sig Dispensed Refills Start Date End Date Status calcium carbonate (CALTRATE) 600 mg calcium (1,500 mg) tablet Take 1,200 mg by mouth once daily. Not taking 0 2 Active acetaminophen (TYLENOL EXTRA STRGTH) 500 mg tabletIndications :S/P placement of cardiac pacemaker Take 2 Tablets (1,000 mg) by mouth 3 times daily if needed for Pain (For mild pain.). Max acetaminophen dose: 4000mg in 24 hrs. 0 2 Active zinc gluconate 50 mg tablet Take 1 Tablet (50 mg) by mouth once daily. 4 Active triamcinolone (ARISTOCORT; KENALOG) 0.1 % creamIndications: Dermatitis Apply topically to affected area(s) three times daily. 80 g 4 Active sotaloL (BETAPACE) 80 mg tabletIndications :Paroxysmal atrial fibrillation (HC) Take 1 Tablet (80 mg) by mouth once daily. 60 Tablet 4 Active alendronate (FOSAMAX) 70 mg tabletIndications :Senile osteoporosis TAKE ONE TABLET (70 MG) BY MOUTH ONCE A WEEK IN THE MORNING. TAKE ON AN EMPTY STOMACH WITH A FULL GLASS OF WATER. DO NOT LIE DOWN OR EAT FOR 30 MINUTES AFTER TAKING 13 Tablet 1 4 Active amLODIPine (NORVASC) 2.5 mg tabletIndications :HTN (hypertension) Take 1 Tablet (2.5 mg) by mouth once daily. 90 Tablet 3 4 Active hydroCHLOROthiazi de 12.5 mg tabletIndications :HTN (hypertension) Take 1 Tablet (12.5 mg) by mouth once daily. 90 Tablet 3 4 Active lisinopriL (PRINIVIL; ZESTRIL) 20 mg tabletIndications :Hypertension, unspecified type Take 1 Tablet (20 mg) by mouth once daily. 90 Tablet 3 4 Active amLODIPine (NORVASC) 5 mg tabletIndications :Benign essential HTN Take 1 Tablet (5 mg) by mouth once daily. 90 Tablet 3 4 Active warfarin (COUMADIN) 3 mg tabletIndications :New onset atrial fibrillation (HC),Anticoagulat ion monitoring, INR range 2-3 Take by mouth 6 mg (3 mg x 2) every Mon, Wed, Fri; 7.5 mg (3 mg x 2.5) all other days in the evening OR as directed 210 Tablet 4 Active warfarin (COUMADIN) 3 mg tabletIndications :New onset atrial fibrillation (HC),Anticoagulat ion monitoring, INR range 2-3 Take by mouth 6 mg (3 mg x 2) every Mon, Wed, Fri; 7.5 mg (3 mg x 2.5) all other days in the evening OR as directed 210 Tablet 4 07/02/20 24 Discontinued Active Problems Problem Noted Date Diagnosed Date Pacemaker 06/14/2022 Paroxysmal atrial fibrillation 04/16/2022 Anticoagulation monitoring, INR range 2-3 2021 Raynaud phenomenon 09/10/2021 Colon polyp 08/21/2018 Overview (12/17/2023): Colonoscopy 08/2018 polyp, lymphocytic colitis, repeat in 5 years Colonoscopy 12/2023 TA, normal biopsy, repeat in 7 years Lymphocytic colitis 08/21/2018 Overview (12/17/2023): Colonoscopy 08/2018 polyp, lymphocytic colitis, repeat in 5 years Colonoscopy 12/2023 TA, normal biopsy, repeat in 7 years H. pylori infection 07/28/2018 Overview (07/28/2018): EGD 07/2018 H pylori gastritis HTN (hypertension) 12/26/2010 Other and unspecified hyperlipidemia 06/26/2007 Senile osteoporosis 06/26/2007 Overview (06/24/2022): Fosamax 2003- Restarted 2020 Resolved Problems Problem Noted Date Diagnosed Date Resolved Date New onset atrial fibrillation 01/24/2022 06/28/2024 Encounters Date Type Department Care Team Description 07/22/2024 10:45 AM INTERMODAL DISPATCHER Orders Only [address] [address] Lab[facility] 07/22/2024 Anticoagulation (warfarin) [address] [address] 1, [facility] Anticoagulation 07/22/2024 Travel 07/02/[address] [address] Brianna Mckay PA Refill Request (Warfarin) 06/29/[address] [address] Brianna Mckay PA Anticoagulation (Lab Orders) 06/28/2024 2:55 PM CDT Office Visit [facility] [address] [place] [address] Richie Osborne MD Medicare ANNUAL (subsequent) Visit (84 year old female) 06/28/[address] [address] Richie Osborne MD Medication Management (amLODIPine (NORVASC) 2.5 mg tablet/) 06/28/2024 Travel 06/26/[address] [address] Brianna Mckay PA Refill Request (Lisinopril) 06/21/2024 Refill [facility] [address] [place] [address] Brianna Mckay PA Refill Request (Amlodipine, Hydrochlorothiazide) 06/17/2024 10:00 AM CDT Orders Only [facility] [address] [place] [address] Lab, [facility] 06/17/2024 Anticoagulation (warfarin) [facility] [address] [place] [address] 1, [facility] Anticoagulation 06/17/2024 Travel 06/12/2024 Travel 06/02/2024 Refill [facility] [address] [place] [address] Brianna Mckay PA Refill Request (Alendronate) 05/21/2024 Anticoagulation (warfarin) [facility] [address] [place] [address] 1, [facility] 05/20/2024 1:30 PM CDT Orders Only [facility] [address] [place] [address] Lab, [facility] 05/20/2024 Travel 05/19/2024 Telephone [facility] [address] [place] [address] Brianna Mckay PA Anticoagulation (Chart update-lab orders) from Last 3 Months Immunizations Name Administration Dates Next Due COVID-19 vaccine (Moderna 10 0mcg/0.5mL) DUANE MDHiro 12/06/2021,07/03/2021,11/17/2020 Influenza RIV4 (Age 18+ Years) PRESERV FREE 10/2019 Influenza, High-dose Inactivated 06/17/2024,06/01,05/13/2015 Influenza, High-dose Quadriv alent Inactivated 06/25/2023,06/10/2022,05/18/2021 Influenza, [...] drink = 0.6 oz pur e alcohol) 2 drink/day PHQ-2 Answer Date Recorded PHQ-2 TOTAL SCORE 0 06/28/2024 Social Connections Answer Date Recorded Do you often feel lonely or isolated from those around you? 0 09/18/2023 Financial Resource Strain Answer Date R ecorded Difficulty of Paying Living Expenses 3 09/18/2023 Difficulty of Paying Living Expenses Not on file 09/18/2023 Food Insecurity Answer Date Recorded Do you worry your food will run out before you are able to buy more? 1 09/18/2023 Transportation Needs Answer Date Record ed Does lack of transportation keep you from medica l appointments? 1 09/18/2023 Does lack of transportation keep you from work, meetings or getting things that you need? 1 09/18/2023 Housing Stability Answer Date Recorded What is your housing situation today? 1 09/18/2023 Sex and Gender Information Value [...] Sign Reading Time Taken Comments Blood Pressure 139/73 06/28/2024 2:45 PM CDT Pulse 79 06/28/2024 2:45 PM CDT Temperature 36.4 C (97.6 F) 06/28/2024 2:45 PM CDT Respiratory Rate 16 08/04/2023 2:27 PM INTERMODAL DISPATCHER Oxygen Saturation 99% 06/28/2024 2:45 PM CDT Inhaled Oxygen Concentration - - Weight 62.2 kg (137 lb 3.2 oz) 06/28/2024 2:45 P M CDT Height 170.7 cm (5' 7.2) 06/28/2024 2:45 PM CDT Body Mass Index 21.36 06/28/2024 2:45 PM CDT Plan of Treatment Upcoming Encounters Date Type Department Care Team (Late st Contact Info) Description 09/07/2024 10:00 AM INTERMODAL DISPATCHER Ancillary Procedure [facility] [address] [place] [address] 09/22/2024 1:00 PM INTERMODAL DISPATCHER Cardiac Device Check [address] [place] [address] 09/22/2024 1:40 PM INTERMODAL DISPATCHER Office Visit [address]le [address] [place] [address] Danii Ragland, MARBELLA [address] [place] [address] Health Maintenance Due Date Last Done Comments RSV vaccine for adults or (1 - 1-dose 75+ series) 2017 BMI (ht and wt on same day) for age 18+ 06/28/2025 06/28/2024, 12/05/2023, 09/24/2023, Additional history exists Medicare Wellness for age 65+ 06/29/2025, 06/25/2023, 06/24/2022, Additional history exists Depression screening for age 12+ 07/02/2025 07/02/2024, 06/29/2024, 06/28/2024, Additional history exists Tetanus booster 06/10/2032 06/10/2022, 01/30, 02/10/2013, Additional history exists Zoster (shingles) series for age 50+ Completed 05/24/2019, 02/01/2019, 10/02/2015 Pneumococcal series for age 65+ Completed , 06/17/2019 Tdap Completed 06/10/2022, 02/10/2013 DEXA/DXA scan for age 65+ Completed 2022, 06/25/2021, 07/21/2012, Additional history exists COVID-19 vaccine series Completed 06/17/20, 01/01/2024, 06/10/2023, Additional history exists Influenza for age 65+ Completed 06/17/2024 , 06/25/2023, 06/10/2022, Additional history exists Procedures Procedure Name Priority Date/Time Associated Diagnosis Comments INR,POCT Routine 07/22/2024 10:44 AM INTERMODAL DISPATCHER Anticoagulation monitoring, INR range 2-3 Paroxysmal atrial fibrillation (HC) BASIC METABOLIC PANEL Routine 06/28/2024 3:25 PM CDT Hypertension, unspecified type VITAMIN D 25 (DEFICIENCY) Routine 06/28/2024 3:25 PM CDT Vitamin D deficiency INR,POCT Routine 06/17/2024 10:05 AM CDT New onset atrial fibrillation (HC) Anticoagulation monitoring, INR range 2-3 PACER NANCI DUAL CHAMBER WO REPROG Routine 06/09/2024 12:23 PM CDT Fitting or adjustment of cardiac pacemaker PROTIME-INR STAT 05/20/2024 1:26 PM CDT New onset atrial fibrillation (HC) Anticoagulation monitoring, INR range 2-3 XR DXA BONE DENSITY 2 SITES AXIAL Routine 06/26/2023 1:16 PM CDT Senile osteoporosis from Last 3 Months or Most Recently Relevant to Health Maintenance Results * (ABNORMAL) INR - POCT [18409.2] - Standing Order (07/22/2024 10:44 AM INTERMODAL DISPATCHER) Only the most recent of2 resultswithin the time period is included. INR 3.2(H) ratio [facility] Comment: INRs >2.9 may be falsely elevated in patients receiving either unfractionated Heparin or Low Molecular Weight Heparin. Follow up testing in a hospital laboratory may be helpful if clinically indicated. INR results of > or = 5.0 should be verified using the standard venipuncture procedure. Reference Range 0.9-1.1 Moderate-intensity Warfarin Therapy 2.0-3.0 Higher-intensity Warfarin Therapy 3.0-4.0 PROTHROMBIN TIMEP 38.8(H) 10.5 - 13.1 sec [facility] Comment: Point of care fingerstick Prothrombin Time/INR results may vary from venous Prothrombin Time/INR methodologies. Any results exhibiting inconsistency with the patient's clinical status should be repeated using a venous Prothrombin Time/INR method. Blood BLOOD SPECIMEN / Unknown 07/22/2024 10:44 AM INTERMODAL DISPATCHER 07/22/2024 10:44 AM INTERMODAL DISPATCHER [facility] Performing Organization Address City/[facility]/ZIP Co de Phone Number [facility] [address] [place] [address], [facility] [address] [place] [address] * VITAMIN D 25 (DEFICIENCY) (06/28/2024 3:25 PM CDT) VITAMIN D,25-OH,TOTAL,IA 53 30 - 100 ng/mL [facility] Comment: Vitamin D Status 25-OH Vitamin D: Deficiency: <20 ng/mL Insufficiency: 20 - 29 ng/mL Optimal: > or = 30 ng/mL For 25-OH Vitamin D testing on patients on D2-supplementation and patients for whom quantitation of D2 and D3 fractions is required, the QuestAssureD() 25-OH VIT D, (D2,D3), LC/MS/MS is recommended: order code 06682 (patients >2yrs). See Note 1 Note 1 For additional information, please refer to http://education.[employer]ing.JFDI.Asia/faq/QPQ925 (This link is being provided for informational/ educational purposes only.) Blood BLOOD SPECIMEN / Unknown 06/28/2024 3:25 PM CDT 06/28/2024 3:25 PM CDT Richie Osborne MD SEND OUTS [facility] [address] [place] [address], [place] [phone] [facility] [address] [place] [address] * BASIC METABOLIC PANEL (06/28/2024 3:25 PM CDT) GLUCOSE 89 65 - 99 mg/dL [facility] Comment: Fasting reference interval UREA NITROGEN (BUN) 17 7 - 25 mg/dL [facility] CREATININE 0.91 0.60 - 0.95 mg/dL [facility] EGFR 63 > OR = 60 mL/min/1. 73m2 [facility] BUN/CREATININE RATIO SEE NOTE: 6 - 22 (calc) [facility] Comment: Not Reported: BUN and Creatinine are within reference range. SODIUM 139 135 - 146 mmol/L [facility] POTASSIUM 3.7 3.5 - 5.3 mmol/L [facility] CHLORIDE 103 98 - 110 mmol/L [facility] CARBON DIOXIDE 29 20 - 32 mmol/L [facility] ELECTROLYTE BALANCE 7 7 - 17 mmol/L (calc) [facility] CALCIUM 9.4 8.6 - 10.4 mg/dL [facility] Blood BLOOD SPECIMEN / Unknown 06/28/2024 3:25 PM CDT 06/28/2024 3:25 PM CDT Richie Osborne MD CHEMISTRY [facility] [address] [place] [address], [place] [phone] [facility] [address] [place] [address] * (ABNORMAL) PROTIME-INR (05/20/2024 1:26 PM CDT) INR 2.1(H) <1.3 05/20/2024 10:26 PM CDT [facility] PROTIME 23.1(H) 10.3 - 12.3 sec 05/20/2024 10:26 PM CDT [facility] Blood BLOOD SPECIMEN / Unknown Non-Lab Venipuncture / Unknown 05/20/2024 1:26 PM CDT 05/20/2024 1:27 PM CDT Narrative [facility] - 05/20/2024 10:26 PM CDT Therapeutic Range 2.0-3.0 for most anticoagulated patients 2.5-3.5 [...] patient is on UFH. Brianna [facility] [address] [place] [address], * (ABNORMAL) XR DXA BONE DENSITY 2 [...] if therapy initiated to assess therapeutic efficacy. Patient just discontinued fosamax, so consider alternative medication. Flower Saavedra PA-C [facility] 07/02/2023 Narrative 07/02/2023 4:54 PM CDT For Patients: Results are automatically released to your [facility] ([facility]) account once available, in compliance with federal regulations. This means that you may see your results before your provider has had a chance to review them. Please allow 2-3 business days for your provider to comment on the results. XR DXA Bone Mineral Density (BMD) EXAM LOCATION: [facility] [address] [facility] [address] PATIENT NAME: Nemesio Horta DATE OF : 1940 EXAM DATE: 06/26/2023 REQUESTING PROVIDER: Brianna Mckay PA GENDER AT : female HEIGHT: 5' 6.06 (06/25/2023) WEIGHT: 139 lb 3.2 oz (06/25/2023) MENOPAUSAL STATUS: Postmenopausal [...] two scanners are made by the same senior cost accountant. PROCEDURE: Dual-energy x-ray absorptiometry performed with routine [...] - 1.9 Change from prior in 2020: Increase 5.0%. RESULTS FEMUR Left femoral neck BMD: 0.708 g/cm2 T-Score: - 2.4 Z-Score: - 0.1 Change from prior in 2020: Decrease 0.7%. Right femoral neck BMD: 0.705 g/cm2 T-Score: - 2.4 Z-Score: - 0.1 Change from prior in 2020: Decrease 1.3%. Left hip BMD: 0.713 g/cm2 T-Score: - 2.3 Z-Score: - 0.2 Change from prior in 2020: Increase 4.7%. Right hip BMD: 0.669 g/cm2 T-Score: - 2.7 Z-Score: - 0.6 Change from prior in 2020: Increase 4.5%. WHO criteria: Normal: T-score at or above -1 SD Osteopenia: T-score between -1.1 and -2.4 SD Osteoporosis: T-score at or below -2.5 SD Brianna BARRIGA DEXA from Last 3 Months or Most Recently Relevant to Health Maintenance Advance Directives Documents on File Type Date Recorded Patient Associate Director Of Development Expl anation Healthcare Directive 04/21/2014 12:18 PM Cynthia GEE, 03/11/2007 * Full Code (Latest Code Status on File) Date Activated Date Inactivated Comments 04/09/2022 12:28 PM 04/09/2022 6:46 PM Question Answer Comments Code Status Discussion: Reviewed Preferences Care Teams Bottom Scrubber Relationship Specialty Start Date End Date Brianna Mckay PA [address] [place] [address] PCP - General Physician [employer] Battalion Chief 12/25/22
[2024-07-30 22:36] VITALS: BP 109/76; BP 116/66; BP 118/61; PULSE 64; PULSE 79; PULSE 84
[2024-07-30 23:14] VITALS: BP 116/76; PULSE 71; RESP 16; TEMP 36.2
== END 2024-07-30 22:20 | disposition home or self-care (01) ==
PROVIDERS: Emergency Provider Family Medicine; PCP Student in an Organized Health Care Education/Training Program
DX: S02.5XXA Fracture of tooth (traumatic), initial encounter for closed fracture (principal); S01.511A Laceration without foreign body of lip, initial encounter; W01.198A Fall on same level from slipping, tripping and stumbling with subsequent striking against other object, initial encounter
CPT/HCPCS: 70450; 70486; 93005; 99284; 99291

== ENCOUNTER 2024-08-03 14:42 | Outpatient (CLI) | payer MEDICARE, SELFPAY ==
--- OUTSIDE RECORDS SUMMARY | 2024-08-03 14:58 | XMS_ITS | Clinical Summary ---
Author Organization [employer] Address [place], [place] [address] Care Team Providers Care Mig Welder Name Role Phone Brianna Mckay Primary Care Provider [phone] [phone] Allergies No known active allergies Medications Medication [...] 4000mg in 24 hrs. 0 04/09/2022 Active zinc gluconate 50 mg tablet Take 1 Tablet (50 mg) by mouth once daily. 09/24/2023 Active triamcinolone (ARISTOCORT; KENALOG) 0.1 % creamIndications:D ermatitis Apply topically to affected area(s) three times daily. 80 g 10/10/2023 Active sotaloL (BETAPACE) 80 mg tabletIndications: Paroxysmal atrial fibrillation (HC) Take 1 Tablet (80 mg) by mouth once daily. 60 Tablet 03/24/2024 Active alendronate (FOSAMAX) 70 mg tabletIndications: Senile osteoporosis TAKE ONE TABLET (70 MG) BY MOUTH ONCE A WEEK IN THE MORNING. TAKE ON AN EMPTY STOMACH WITH A FULL GLASS OF WATER. DO NOT LIE DOWN OR EAT FOR 30 MINUTES AFTER TAKING 13 Tablet 1 06/05/2024 Active amLODIPine (NORVASC) 2.5 mg tabletIndications: HTN (hypertension) Take 1 Tablet (2.5 mg) by mouth once daily. 90 Tablet 3 06/28/2024 Active hydroCHLOROthiazid e 12.5 mg tabletIndications: HTN (hypertension) Take 1 Tablet (12.5 mg) by mouth once daily. 90 Tablet 3 06/28/2024 Active lisinopriL (PRINIVIL; ZESTRIL) 20 mg tabletIndications: Hypertension, unspecified type Take 1 Tablet (20 mg) by mouth once daily. 90 Tablet 3 06/28/2024 Active amLODIPine (NORVASC) 5 mg tabletIndications: Benign essential HTN Take 1 Tablet (5 mg) by mouth once daily. 90 Tablet 3 06/28/2024 Active warfarin (COUMADIN) 3 mg tabletIndications: New onset atrial fibrillation (HC),Anticoagulati on monitoring, INR range 2-3 Take by mouth 6 mg (3 mg x 2) every Mon, Wed, Fri; 7.5 mg (3 mg x 2.5) all other days in the evening OR as directed 210 Tablet 07/02/2024 Active Active Problems Problem Noted Date Diagnosed [...] Encounters Date Type Department Care Team Description 08/03/2024 Telephone [facility] [address] [place] [address] Richie Osborne MD lab orders 08/02/2024 Telephone [facility] [address] [place] [address] Brianna Mckay PA Questions (INR QUESTIONS) 07/22/2024 10:45 AM ORTHOPEDIC SHOE FITTER Orders Only [address] [address] [place] 07/22/2024 Anticoagulation (warfarin) [address] [address] 1, [facility] Anticoagulation 07/22/2024 Travel 07/02/[address] [address] Brianna Mckay PA Refill Request (Warfarin) 06/29/2024 Telephone [facility] [address] [place] [address] Brianna Mckay PA Anticoagulation (Lab Orders) 06/28/2024 2:55 PM CDT Office Visit [facility] [address] [place] [address] Richie Osborne MD Medicare ANNUAL (subsequent) Visit (84 year old female) 06/28/2024 Telephone [facility] [address] [place] [address] Richie Osborne MD Medication Management (amLODIPine (NORVASC) 2.5 mg tablet/) 06/28/2024 Travel 06/26/[address] [address] Brianna Mckay PA Refill Request (Lisinopril) 06/21/2024 Refill [facility] [address] [place] [address] Brianna Mckay PA Refill Request (Amlodipine, Hydrochlorothiazide) 06/17/2024 10:00 AM CDT Orders Only [facility] [address] [place] [address] Lab[facility] 06/17/2024 Anticoagulation (warfarin) [facility] [address] [place] [address] 1, [facility] Anticoagulation 06/17/2024 Travel 06/12/2024 Travel 06/02/2024 Refill [facility] [address] [place] [address] Brianna Mckay PA Refill Request (Alendronate) 05/21/2024 Anticoagulation (warfarin) [facility] [address] [place] [address] 1, [facility] 05/20/2024 1:30 PM CDT Orders Only [facility] [address] [place] [address] Lab[facility] 05/20/2024 Travel 05/19/2024 Telephone [facility] [address] [place] [address] Brianna Mckay PA Anticoagulation (Chart update-lab orders) [...] CDT Respiratory Rate 16 08/04/2023 2:27 PM ORTHOPEDIC SHOE FITTER Oxygen Saturation 99% 06/28/2024 2:45 PM CDT Inhaled Oxygen Concentration - - Weight 62.2 kg (137 lb 3.2 oz) 06/28/2024 2:45 P M CDT Height 170.7 cm (5' 7.2) 06/28/2024 2:45 PM CDT Body Mass Index 21.36 06/28/2024 2:45 PM CDT Plan of Treatment Upcoming Encounters Date Type Department Care Team (Late st Contact Info) Description 09/07/2024 10:00 AM ORTHOPEDIC SHOE FITTER Ancillary Procedure [facility] [address] [place] [address] 09/22/2024 1:00 PM ORTHOPEDIC SHOE FITTER Cardiac Device Check [address] [place] [address] 09/22/2024 1:40 PM ORTHOPEDIC SHOE FITTER Office Visit [address] [place] [address] Danii Ragland, PAYROLL REPRESENTATIVE [address] [place] [address] Health Maintenance Due Date Last Done Comments [...] Diagnosis Comments INR,POCT Routine 07/22/2024 10:44 AM ORTHOPEDIC SHOE FITTER Anticoagulation monitoring, INR range 2-3 Paroxysmal atrial [...] Maintenance Results * (ABNORMAL) INR - POCT [68060.2] - Standing Order (07/22/2024 10:44 AM ORTHOPEDIC SHOE FITTER) Only the most recent of2 resultswithin the time period is included. INR 3.2(H) ratio [facility] Comment: INRs >2.9 may be falsely elevated [...] PROTHROMBIN TIMEP 38.8(H) 10.5 - 13.1 sec [facility] Comment: Point of care fingerstick Prothrombin Time/INR results may vary from venous Prothrombin Time/INR methodologies. Any results exhibiting inconsistency with the patient's clinical status should be repeated using a venous Prothrombin Time/INR method. Blood BLOOD SPECIMEN / Unknown 07/22/2024 10:44 AM ORTHOPEDIC SHOE FITTER 07/22/2024 10:44 AM ORTHOPEDIC SHOE FITTER Brianna [facility] [address] [place] [address], [facility] [address] [place] [address] * VITAMIN D 25 (DEFICIENCY) (06/28/2024 3:25 PM CDT) VITAMIN D,25-OH,TOTAL,IA 53 30 - 100 ng/mL [facility]-Rosangela Mcgowan Comment: Vitamin D Status 25-OH Vitamin D: Deficiency: <20 ng/mL Insufficiency: 20 - 29 ng/mL Optimal: > or = 30 ng/mL For 25-OH Vitamin D testing on patients on D2-supplementation and patients for whom quantitation of D2 and D3 fractions is required, the QuestAssureD() 25-OH VIT D, (D2,D3), LC/MS/MS is recommended: order code 02635 (patients >2yrs). See Note 1 Note 1 For additional information, please refer to http://education.[employer]/faq/IQO359 (This link is being provided for informational/ educational purposes only.) Blood BLOOD SPECIMEN / Unknown 06/28/2024 3:25 PM CDT 06/28/2024 3:25 PM CDT Richie Osborne MD SEND OUTS [facility] [address] [place] [address], [place] [phone] [facility] [address] [place] [address] * BASIC METABOLIC PANEL (06/28/2024 3:25 PM [...] 3:25 PM CDT Richie Osborne MD CHEMISTRY [facility] [address] [place] [address], [place] [phone] [facility] [address] [place] [address] * (ABNORMAL) PROTIME-INR (05/20/2024 1:26 PM CDT) INR 2.1(H) <1.3 05/20/2024 10:26 PM CDT [facility] PROTIME 23.1(H) 10.3 - 12.3 sec 05/20/2024 10:26 PM CDT [facility] Blood BLOOD SPECIMEN / Unknown Non-Lab Venipuncture / Unknown 05/20/2024 1:26 PM CDT 05/20/2024 1:27 PM CDT Narrative [facility] - 05/20/2024 10:26 PM CDT Therapeutic Range [...] patient is on UFH. Brianna BARRIGA [facility] [address] [place] [address], * (ABNORMAL) XR DXA BONE DENSITY 2 [...] so consider alternative medication. Flower Saavedra PA-C [facility] 07/02/2023 Narrative 07/02/2023 4:54 PM CDT For Patients: Results are automatically released to your [facility] ([employer]) account once available, in compliance with federal regulations. This means that you may see your results before your provider has had a chance to review them. Please allow 2-3 business days for your provider to comment on the results. XR DXA Bone Mineral Density (BMD) EXAM LOCATION: [facility] [address] [facility] [address] PATIENT NAME: Nemesio Horta DATE OF : [...] two scanners are made by the same cloud security architect. PROCEDURE: Dual-energy x-ray absorptiometry performed with routine [...] Documents on File Type Date Recorded Patient Foam Machine Operator Expl anation Healthcare Directive 04/21/2014 12:18 PM Ne GEE, 03/11/2007 * Full Code (Latest Code Status on File) Date Activated Date Inactivated Comments 04/09/2022 12:28 PM 04/09/2022 6:46 PM Question Answer Comments Code Status Discussion: Reviewed Preferences Care Teams Mig Welder Relationship Specialty Start Date End Date Brianna Mckay PA [address] [place] [address] PCP - General Physician Steel Pourer Helper 12/25/22
[2024-08-03 15:30] LABS: Prothrombin Time 18.1 Seconds
== END 2024-08-03 14:43 | disposition home or self-care (01) ==
PROVIDERS: PCP Student in an Organized Health Care Education/Training Program; Visit Provider Student in an Organized Health Care Education/Training Program
DX: Z79.01 Long term (current) use of anticoagulants (principal)
CPT/HCPCS: 36415; 85610

== ENCOUNTER 2024-08-10 10:52 | Outpatient (CLI) | payer MEDICARE, SELFPAY ==
--- OUTSIDE RECORDS SUMMARY | 2024-08-10 10:57 | XMS_ITS | Clinical Summary ---
Author Organization [employer] [facility] [employer] Address [place], [place] [address] Care Team Providers Care Powder Press Operator Name Role Phone Brianna Mckay Primary Care Provider [phone] [phone] Allergies No known active allergies Medications calcium carbonate (CALTRATE) 600 mg calcium (1,500 mg) tablet Take 1,200 mg by mouth once daily. Not taking 0 03/05/20 22 Active acetaminophen (TYLENOL EXTRA STRGTH) 500 mg tabletIndication s:S/P placement of cardiac pacemaker Take 2 Tablets (1,000 mg) by mouth 3 times daily if needed for Pain (For mild pain.). Max acetaminophen dose: 4000mg in 24 hrs. 0 04/09/20 22 Active zinc gluconate 50 mg tablet Take 1 Tablet (50 mg) by mouth once daily. 09/24/19 24 Active triamcinolone (ARISTOCORT; KENALOG) 0.1 % creamIndications :Dermatitis Apply topically to affected area(s) three times daily. 80 g 10/10/19 24 Active sotaloL (BETAPACE) 80 mg tabletIndication s:Paroxysmal atrial fibrillation (HC) Take 1 Tablet (80 mg) by mouth once daily. 60 Tablet 03/24/20 24 Active alendronate (FOSAMAX) 70 mg tabletIndication s:Senile osteoporosis TAKE ONE TABLET (70 MG) BY MOUTH ONCE A WEEK IN THE MORNING. TAKE ON AN EMPTY STOMACH WITH A FULL GLASS OF WATER. DO NOT LIE DOWN OR EAT FOR 30 MINUTES AFTER TAKING 13 Tablet 1 06/05/20 24 Active amLODIPine (NORVASC) 2.5 mg tabletIndication s:HTN (hypertension) Take 1 Tablet (2.5 mg) by mouth once daily. 90 Tablet 3 06/28/20 24 Active hydroCHLOROthiaz jenaro 12.5 mg tabletIndication s:HTN (hypertension) Take 1 Tablet (12.5 mg) by mouth once daily. 90 Tablet 3 06/28/20 24 Active lisinopriL (PRINIVIL; ZESTRIL) 20 mg tabletIndication s:Hypertension, unspecified type Take 1 Tablet (20 mg) by mouth once daily. 90 Tablet 3 06/28/20 24 Active amLODIPine (NORVASC) 5 mg tabletIndication s:Benign essential HTN Take 1 Tablet (5 mg) by mouth once daily. 90 Tablet 3 06/28/20 24 Active warfarin (COUMADIN) 3 mg tabletIndication s:New onset atrial fibrillation (HC),Anticoagula tion monitoring, INR range 2-3 Take by mouth 6 mg (3 mg x 2) every Mon, Wed, Fri; 7.5 mg (3 mg x 2.5) all other days in the evening OR as directed 210 Tablet 07/02/20 24 Active Active Problems Problem Noted Date Diagnosed [...] Encounters Date Type Department Care Team Description 08/09/2024 Telephone [facility] [address] [place] [address] Brianna Mckay PA Anticoagulation (Fax lab orders) 08/04/2024 Anticoagulation (warfarin) [facility] [address] [place] [address] 1[facility] Anticoagulation (Outside lab) 08/03/2024 Orders Only [facility] Scanner 1 scan: (1-Ord) [facility], INR, 08/03/2024 08/03/2024 Telephone [facility] [address] [facility] [place] [address] Richie Osborne MD lab orders 08/02/2024 Telephone [facility] [address] [place] [address] Brianna Mckay PA Questions (INR QUESTIONS) 07/30/2024 Orders Only [facility] Scanner 1 scan: (1-Ord) [place], HEAD/BRAIN WO, 07/30/2024 07/30/2024 Orders Only [facility] Scanner 1 scan: (1-Ord) [place], FACIAL BONES WO, 07/30/2024 07/22/2024 10:45 AM CONSUMER PRODUCT ADVISOR Orders Only [facility] [address] [place] [address] Lab[facility] 07/22/2024 Anticoagulation (warfarin) [facility] [address] [place] [address] 1, [facility] Anticoagulation 07/22/2024 Travel 07/02/2024 Refill [facility] [address] [place] [address] Brianna Mckay PA Refill Request (Warfarin) 06/29/2024 Telephone [facility] [address] [address] Brianna Mckay PA Anticoagulation (Lab Orders) 06/28/2024 2:55 PM CDT Office Visit [facility] [address] [place] [address] Richie Osborne MD Medicare ANNUAL (subsequent) Visit (84 year old female) 06/28/2024 Telephone [facility] [address] [place] [address] Richie Osborne MD Medication Management (amLODIPine (NORVASC) 2.5 mg tablet/) 06/28/2024 Travel 06/26/[address] [address] Brianna Mckay PA Refill Request (Lisinopril) 06/21/[address] [address] Brianna Mckay PA Refill Request (Amlodipine, Hydrochlorothiazide) 06/17/2024 10:00 AM CDT Orders Only [address] [address] Lab, [facility] 06/17/2024 Anticoagulation (warfarin) [facility] [address] [place] [address] 1, [facility] Anticoagulation 06/17/2024 Travel 06/12/2024 Travel 06/02/2024 Refill [facility] [address] [place] [address] Brianna Mckay PA Refill Request (Alendronate) 05/21/2024 Anticoagulation (warfarin) [address] [address] 1, [facility] 05/20/2024 1:30 PM CDT Orders Only [address] [address] Lab, [facility] 05/20/2024 Travel 05/19/2024 Telephone [facility] [address] [place] [address] Brianna Mckay PA Anticoagulation (Chart update-lab orders) [...] is your housing situation today? 1 09/18/2023 Comments No Sex and Gender Information Value Date Recorded Sex Assigned at Not on file Legal Sex Female 7:08 AM CONSUMER PRODUCT ADVISOR Gender Identity Not on file Sexual Orientation [...] CDT Respiratory Rate 16 08/04/2023 2:27 PM CONSUMER PRODUCT ADVISOR Oxygen Saturation 99% 06/28/2024 2:45 PM CDT Inhaled Oxygen Concentration - - Weight 62.2 kg (137 lb 3.2 oz) 06/28/2024 2:45 P M CDT Height 170.7 cm (5' 7.2) 06/28/2024 2:45 PM CDT Body Mass Index 21.36 06/28/2024 2:45 PM CDT Plan of Treatment Upcoming Encounters Date Type Department Care Team (Late st Contact Info) Description 09/07/2024 10:00 AM CONSUMER PRODUCT ADVISOR Ancillary Procedure [facility] [address] [place] [address] 09/22/2024 1:00 PM CONSUMER PRODUCT ADVISOR Cardiac Device Check [facility] Ernestina [address] [address] 09/22/2024 1:40 PM CONSUMER PRODUCT ADVISOR Office Visit [facility] Ernestina [address] [address] Danii Ragland NP [address] [place] [address] Health Maintenance Due Date Last Done Comments [...] Procedure Name Priority Date/Time Associated Diagnosis Comments SCAN-LABORATORY REPORT 4 12:00 AM CONSUMER PRODUCT ADVISOR INR,POCT Routine 08/03/2024 SCAN-CT INTERPRETATION 4 12:00 AM CONSUMER PRODUCT ADVISOR SCAN-CT INTERPRETATION 4 12:00 AM CONSUMER PRODUCT ADVISOR INR,POCT Routine 07/22/2024 10:44 AM CONSUMER PRODUCT ADVISOR Anticoagulation monitoring, INR range 2-3 Paroxysmal atrial [...] Recently Relevant to Health Maintenance Results * SCAN-LABORATORY REPORT (08/03/2024 12:00 AM CONSUMER PRODUCT ADVISOR) us Scanner OTHER Final Result * (ABNORMAL) INR,POCT (08/03/2024) Only the most recent of3 resultswithin the time period is included. INR 1.4(A) 0.0 - 1.2 [facility] Blood BLOOD SPECIMEN / Unknown 08/03/2024 us Brianna [facility]IGA [facility] Final Res ult [place] [id number] * SCAN-CT INTERPRETATION (07/30/2024 12:00 AM CONSUMER PRODUCT ADVISOR) Only the most recent of2 resultswithin the time period is included. Anatomical Region Laterality Modality Other us Scanner OTHER Final Result * VITAMIN D 25 (DEFICIENCY) (06/28/2024 3:25 PM CDT) VITAMIN D,25-OH,TOTAL,IA 53 30 - 100 ng/mL [facility]-Rosangela Mcgowan Comment: Vitamin D Status 25-OH Vitamin D: Deficiency: <20 ng/mL Insufficiency: 20 - 29 ng/mL Optimal: > or = 30 ng/mL For 25-OH Vitamin D testing on patients on D2-supplementation and patients for whom quantitation of D2 and D3 fractions is required, the QuestAssureD(TM) 25-OH VIT D, (D2,D3), LC/MS/MS is recommended: order code 69050 (patients >2yrs). See Note 1 Note 1 For additional information, please refer to http://education.[employer]/faq/JGI227 (This link is being provided for informational/ educational purposes only.) Blood BLOOD SPECIMEN / Unknown 06/28/2024 3:25 PM CDT 06/28/2024 3:25 PM CDT us Richie Osborne MD SEND OUTS Final Result [employer] [facility] [address] [place] [address], [facility] [address] [place] [address] * BASIC METABOLIC PANEL (06/28/2024 3:25 PM CDT) Pathologist [facility] GLUCOSE 89 65 - 99 mg/dL [employer] [facility] Comment: Fasting reference interval UREA NITROGEN (BUN) 17 7 - 25 mg/dL [employer] [facility] CREATININE 0.91 0.60 - 0.95 mg/dL [facility] EGFR 63 > OR = 60 mL/min/1. 73m2 [employer] [facility] BUN/CREATININE RATIO SEE NOTE: 6 - 22 (calc) [facility] Comment: Not Reported: BUN [...] M CALCIUM 9.4 8.6 - 10.4 mg/dL [employer] [facility]- boone Mcgowan Blood BLOOD SPECIMEN / Unknown 06/28/2024 3:25 PM CDT 06/28/2024 3:25 PM CDT Richie Osborne MD CHEMISTRY Final Result Performing Organization Address City/[facility]/ZIP Co de Phone Number [employer] [facility] [address] [place] [address], [facility] [address] [place] [address] * (ABNORMAL) PROTIME-INR (05/20/2024 1:26 PM CDT) INR 2.1(H) <1.3 05/20/2024 10:26 PM CDT [facility] PROTIME 23.1(H) 10.3 - 12.3 sec 05/20/2024 10:26 PM CDT [facility] Blood BLOOD SPECIMEN / Unknown Non-Lab Venipuncture / Unknown 05/20/2024 1:26 PM CDT 05/20/2024 1:[address] [facility] - 05/20/2024 10:26 PM CDT Therapeutic [...] seconds if the patient is on UFH. us Brianna BARRIGA [facility]EMATOLOG[facility] Final Res ult [facility] [address] [place] [address], [place] * (ABNORMAL) XR DXA BONE DENSITY 2 [...] so consider alternative medication. Flower Saavedra PA-C [facility] 07/02/2023 Narrative 07/02/2023 4:54 PM CDT For Patients: Results are automatically released to your [facility] ([employer]) account once available, in compliance with federal regulations. This means that you may see your results before your provider has had a chance to review them. Please allow 2-3 business days for your provider to comment on the results. XR DXA Bone Mineral Density (BMD) EXAM LOCATION: [address] [address] PATIENT NAME: Nemesio Horta DATE OF : [...] two scanners are made by the same cotton tipper. PROCEDURE: Dual-energy x-ray absorptiometry performed with routine [...] or below -2.5 SD Brianna BARRIGA DEXA Final Res ult from Last 3 Months or Most Recently Relevant to Health Maintenance Insurance [facility] MEDICARE ADVANTAGE MR Advance Directives Documents on File Type Date Recorded Patient Copyright Expert Expl anation Healthcare Directive 04/21/2014 12:18 PM Ne Morelos JAQUAN, 03/11/2007 * Full Code (Latest Code Status on File) Date Activated Date Inactivated Comments 04/09/2022 12:28 PM 04/09/2022 6:46 PM Question Answer Comments Code Status Discussion: Reviewed Preferences Care Teams Powder Press Operator Relationship Specialty Start Date End Date Brianna Mckay PA [address] [place] [address] PCP - General Physician Zipper Slide Attacher 12/25/22
[2024-08-10 12:07] LABS: INR 2.33 (0.91-1.10); Prothrombin Time 27.3 Seconds
== END 2024-08-10 10:53 | disposition home or self-care (01) ==
PROVIDERS: PCP Student in an Organized Health Care Education/Training Program; Visit Provider Student in an Organized Health Care Education/Training Program
DX: Z79.01 Long term (current) use of anticoagulants (principal)
CPT/HCPCS: 36415; 85610

== ENCOUNTER 2025-06-11 12:38 | Outpatient (CLI) | payer MEDICARE, SELFPAY | END 2025-06-11 12:39 | disposition home or self-care (01) | LOC: AMB 06-13 13:01 | PROVIDERS: PCP Student in an Organized Health Care Education/Training Program; Visit Provider Family Medicine | DX: S09.93XA Unspecified injury of face, initial encounter (principal); S69.92XA Unspecified injury of left wrist, hand and finger(s), initial encounter; W01.0XXA Fall on same level from slipping, tripping and stumbling without subsequent striking against object, initial encounter; Y92.79 Other farm location as the place of occurrence of the external cause; Y99.8 Other external cause status | CPT/HCPCS: A0425; A0433 ==

== ENCOUNTER 2025-06-11 13:21 | Observation (INO) | payer MEDICARE, SELFPAY ==
[2025-06-11] VITALS (29 sets, daily range): BP systolic 107–184; BP diastolic 64–138; PULSE 60–68; RESP 16; TEMP 36.5–37.1; O2SAT 92–99
--- OUTSIDE RECORDS SUMMARY | 2025-06-11 13:23 | XMS_ITS | Clinical Summary ---
Author Organization [facility] Address [address] [place] [id number] Care Team Providers Care [employer] Music Director Name Role Phone Brianna Mckay Primary Care Provider [phone] Allergies Active Allergy Reactions Criticality Noted Date Comments Carvedilol Other - Describe In Comment Field High 09/22/2024 worsening of Raynaud's symptoms Medications acetaminophen (TYLENOL EXTRA STRGTH) 500 mg tabletIndication [...] times daily. 80 g 10/10/19 24 Active hydroCHLOROthiaz jenaro 12.5 mg tabletIndication s:HTN (hypertension) Take 1 Tablet (12.5 mg) by mouth once daily. 90 Tablet 3 06/28/20 24 Active lisinopriL (PRINIVIL; ZESTRIL) 20 mg tabletIndication s:Hypertension, unspecified type Take 1 Tablet (20 mg) by mouth once daily. 90 Tablet 3 06/28/20 24 Active sotaloL (BETAPACE) 80 mg tabletIndication s:Paroxysmal atrial fibrillation (HC) Take 1 Tablet (80 mg) by mouth once daily. Plan for annual follow up in 09/2025. Please call prior to 05/2025 to schedule. Further refills to follow next visit. 90 Tablet 3 09/22/19 25 Active amLODIPine 2.5 mg tabletIndication s:HTN (hypertension) Take 1 Tablet (2.5 mg) by mouth once daily. 90 Tablet 2 01/07/20 25 Active alendronate 70 mg tabletIndication s:Senile osteoporosis Take 1 Tablet (70 mg) by mouth once a week in the morning. Take on empty stomach with full glass of water. Do not lie down for 1 hr. 13 Tablet 2 01/27/20 25 Active calcium carbonate-vitami n D3 (600 mg-400 unit) 600 mg-10 mcg (400 unit) tabletIndication s:Senile osteoporosis Take 1 Tablet by mouth two times daily with meals. 01/28/20 25 Active warfarin (COUMADIN) 3 mg tabletIndication s:Anticoagulatio n monitoring, INR range 2-3,Paroxysmal atrial fibrillation (HC),New onset atrial fibrillation (HC) Take by mouth 6 mg (3 mg x 2) every Tue, Sat; 7.5 mg (3 mg x 2.5) all other days in the evening OR as directed 215 Tablet 04/26/20 25 Active Active Problems Problem Noted Date Diagnosed [...] Encounters Date Type Department Care Team Description 06/09/2025 Telephone [facility] [address] [place] [address] Brianna Mckay PA Anticoagulation (Annual re-enrollment /) 06/06/2025 10:30 AM CDT Orders Only [facility] [address] [place] [address] [facility] [place] [facility] 06/06/2025 Telephone [facility] [address] [place] [address] Brianna Mckay PA Anticoagulation (Hold/bridge) 06/06/2025 Anticoagulation (warfarin) [address] [address] Nurse, Claude Anticoag Anticoagulation 06/06/2025 Travel 05/14/2025 Telephone [facility] [address] [place] [address] Brianna Mckay PA Lab (INR POCT ORDERS) 04/29/2025 10:00 AM CDT Orders Only [address] [address] [facility] [place] [facility] 04/29/2025 Anticoagulation (warfarin) [address] [address] Nurse, Ahavery Anticoag Anticoagulation 04/29/2025 Travel 04/26/[address] [address] Brianna Mckay PA Refill Request (Warfarin) 04/15/2025 10:30 AM CDT Orders Only [address] [address] Lab[facility] [place] [facility] 04/15/2025 Anticoagulation (warfarin) [facility] [address] [place] [address] Nurse, Ahavery Anticoag Anticoagulation 04/15/2025 Travel 04/11/2025 Travel 03/26/[address] [address] Brianna Mckay PA Refill Request (warfarin 3 mg tablet/Take by mouth 6 mg (3 mg x 2) every Fri, Sat; 7.5 mg (3 mg x 2.5) all other days in the evening OR as directed) 03/26/2025 Refill [facility] [address] [place] [address] Brianna Mckay PA Refill Request (Warfarin) 03/21/2025 11:20 AM CDT Nurse/Clinic Staff Only [address] [address] Blood Pressure (127/60) 03/21/2025 Travel 03/21/2025 Telephone [facility] [address] [facility] [address] [place] [id number] Mulugeta Ren MD OTHER 03/18/2025 10:30 AM CDT Orders Only [address] [address] [facility] [place] [facility] 03/18/2025 Anticoagulation (warfarin) [address] [address] NurseClaude Anticoag Anticoagulation 03/18/2025 Travel 03/12/[address] [address] Brianna Mckay PA Anticoagulation (Review dosing) from Last 3 Months Immunizations Immunization Administration Dates Next Due COVID-19 vaccine (Moderna 10 0mcg/0.5mL) STEPAN ZEPEDA 12/06/2021,07/03/2021,11/17/2020 Influenza RIV4 (Age 18+ Years) PRESERV [...] Mother Cancer-breast Sister Postmenopausal breast cancer Sister Cancer-ovarian No Family History Relation Name Status Comments Father Maternal Grandmother [...] or isolated from those around you? 0 10/22/2024 Financial Resource Strain Answer Date R ecorded Difficulty of Paying Living Expenses 3 10/22/2024 Difficulty of Paying Living Expenses Not on file 10/22/2024 Food Insecurity Answer Date Recorded Do you worry your food will run out before you are able to buy more? 1 10/22/2024 Transportation Needs Answer Date Record ed Does lack of transportation keep you from medica l appointments? 1 10/22/2024 Does lack of transportation keep you from work, meetings or getting things that you need? 1 10/22/2024 Housing Stability Answer Date Recorded What is your housing situation today? 1 10/22/2024 Utilities Answer Date Recorded Do you have trouble paying f or utilities (for example, heat, electricity, water, phone)? 1 10/22/2024 Comments No Sex and Gender Information Value Date Recorded Sex Assigned at Not on file Legal Sex Female 7:08 AM INTERMEDIATE MANAGER Gender Identity Not on file Sexual Orientation Not on file Obstetrics History Para Term AB IAB SAB Ectopic Multiple Livin g Live Births 2 2 Date Outcome GA Total Labor Labor/2nd/3rd Weight Sex Type Anes PTL Francine A1 A5 Name Clin Last Filed Vital Signs Vital Sign Reading Time Taken Comments Blood Pressure 127/60 03/21/2025 11:22 AM CDT Pulse 64 03/21/2025 11:22 AM CDT Temperature 36.4 C (97.6 F) 06/28/2024 2:45 PM CDT Respiratory Rate 16 12/22/2024 8:34 AM CDT Oxygen Saturation 98% 03/21/2025 11:22 AM CDT Inhaled Oxygen Concentration - - Weight 61.9 kg (136 lb 6.4 oz) 01/20/2025 8:55 A M CDT Height 170.7 cm (5' 7.21) 09/22/2024 1:10 PM CS T Body Mass Index 21.23 09/22/2024 1:10 PM INTERMEDIATE MANAGER Plan of Treatment Upcoming Encounters Date Type Department Care Team (Late st Contact Info) Description 07/05/2025 10:45 AM INTERMEDIATE MANAGER Office Visit [facility] [address] [place] [address] Brianna Mckay PA [address] [place] [address] 08/11/2025 Cardiac Device Check [facility] [phone] Health Maintenance Due Date Last Done Comments RSV vaccine for adults or (1 - 1-dose 75+ series) 2017 Influenza Vaccine (#1) 2025 , 06/02/2020, 05/24/2019, Additional history exists Medicare Wellness for age 65+ 06/29/2025 06/28/2024, 06/25/2023, 06/24/2022, Additional history exists Depression screening for age 12+ 07/02/2025 07/02/2024, 06/29/2024, 06/28/2024, Additional history exists BMI (ht and wt on same day) for age 18+ 09/22/2025 09/22/2024, 06/28/2024, 12/05/2023, Additional history exists Tetanus booster 06/10/2032 06/10/2022, 01/30, 02/10/2013, Additional history exists Zoster (shingles) series for age 50+ Completed 05/24/2019, 02/01/2019, 10/02/2015 Pneumococcal series for age 50+ Completed 06/19/2020, 06/17/2019 DEXA/DXA scan for age 65+ Completed 2022, 06/25/2021, 07/21/2012, Additional history exists COVID-19 vaccine series Completed 01/21/20, 06/17/2024, 01/01/2024, Additional history exists Hepatitis B series for 19+ Aged Out N o longer eligible based on patient's age to complete this topic Procedures Procedure Name Priority Date/Time Associated Diagnosis Comments INR,POCT Routine 06/06/2025 10:26 AM CDT Anticoagulation monitoring, INR range 2-3 Paroxysmal atrial fibrillation (HC) INR,POCT Routine 04/29/2025 10:12 AM CDT Anticoagulation monitoring, INR range 2-3 Paroxysmal atrial fibrillation (HC) INR,POCT Routine 04/15/2025 10:37 AM CDT Anticoagulation monitoring, INR range 2-3 Paroxysmal atrial fibrillation (HC) PACER NANCI DUAL CHAMBER WO REPROG Routine 04/11/2025 2:34 PM CDT Fitting or adjustment of cardiac pacemaker INR,POCT Routine 03/18/2025 10:12 AM CDT Anticoagulation monitoring, INR range 2-3 Paroxysmal atrial fibrillation (HC) XR DXA BONE DENSITY 2 SITES AXIAL Routine 06/26/2023 1:16 PM CDT Senile osteoporosis from Last 3 Months or Most Recently Relevant to Health Maintenance Results * (ABNORMAL) INR - POCT [18124.2] - Standing Order (06/06/2025 10:26 AM CDT) Only the most recent of4 resultswithin the time period is included. INR 1.7(H) ratio 06/06/2025 10:44 AM CDT [facility] Comment: INRs >2.9 may be falsely elevated in patients receiving either unfractionated Heparin or Low Molecular Weight Heparin. Follow up testing in a hospital laboratory may be helpful if clinically indicated. INR results of > or = 5.0 should be verified using the standard venipuncture procedure. Reference Range 0.9-1.1 Moderate-intensity Warfarin Therapy 2.0-3.0 Higher-intensity Warfarin Therapy 3.0-4.0 PROTHROMBIN TIMEP 20.1(H) 10.5 - 13.1 sec 06/06/2025 10:44 AM CDT [facility] Comment: Point of care fingerstick Prothrombin Time/INR results may vary from venous Prothrombin Time/INR methodologies. Any results exhibiting inconsistency with the patient's clinical status should be repeated using a venous Prothrombin Time/INR method. Blood BLOOD SPECIMEN / Unknown [facility] / Unknown 06/06/2025 10:26 AM CDT 06/06/2025 10:26 AM CDT us Brianna [facility] Final Res ult [facility] [address] [place] [address], [place] [phone] [facility] [address] [place] [address], * (ABNORMAL) XR DXA BONE DENSITY 2 [...] so consider alternative medication. Flower Saavedra PA-C [facility] 07/02/2023 Narrative 07/02/2023 4:54 PM CDT For Patients: Results are automatically released to your [facility] All [facility] ([employer]) account once available, in compliance with federal regulations. This means that you may see your results before your provider has had a chance to review them. Please allow 2-3 business days for your provider to comment on the results. XR DXA Bone Mineral Density (BMD) EXAM LOCATION: [facility] [address] [facility] [address] PATIENT NAME: Nemesio Horta DATE OF : [...] two scanners are made by the same manager food safety. PROCEDURE: Dual-energy x-ray absorptiometry performed with routine [...] Most Recently Relevant to Health Maintenance Insurance [employer] MED[employer]ARE ADVANTAGE MR Advance Directives Documents on File Type Date Recorded Patient Photo Engraver Expl anation Healthcare Directive 04/21/2014 12:18 PM A Jethro GEE, 03/11/2007 * Full Code (Latest Code Status on File) Date Activated Date Inactivated Comments 04/09/2022 12:28 PM 04/09/2022 6:46 PM Question Answer Comments Code Status Discussion: Reviewed Preferences Care Teams High [employer] Music Director Relationship Specialty Start Date End Date Brianna Mckay PA [address] [place] [address] PCP - General Physician Glass Blowing Lathe Operator 12/25/22
--- NOTE | 2025-06-11 13:26 | CRLHL7_ITS ---
For Patients: As a result of the Century Cures Act, medical imaging exams and procedure reports are released immediately into your electronic medical record. You may view this report before your referring provider. If you have questions, please contact your health care provider. Indication: Fall. Technique: Noncontrast CT images of the cervical spine. Comparison: None. Findings: Mild reversal of the cervical lordosis. Mild rightward cervical curvature. Diffuse osseous demineralization. No acute fracture or traumatic subluxation. Mild grade 1 anterolisthesis of C3 on C4. Moderate disc height loss at C5-6. Shallow posterior disc osteophyte complexes mildly narrow the spinal canal. Multilevel uncinate spurring and facet arthropathy contributing up to moderate neural foraminal stenosis on the right at C5-6. No concerning opacities in the visualized lungs. Impression: 1. No acute fracture or traumatic subluxation. 2. Multilevel cervical spondylosis. Please note that all CT scans at this facility use dose modulation, iterative reconstruction, and/or weight-based dosing when appropriate to reduce radiation dose to as low as reasonably achievable. Dictated by Mino Estrada MD @ 06/11/2025 2:34:11 PM (Electronically Signed)
--- NOTE | 2025-06-11 13:26 | CRLHL7_ITS ---
For Patients: As a result of the Century Cures Act, medical imaging exams and procedure reports are released immediately into your electronic medical record. You may view this report before your referring provider. If you have questions, please contact your health care provider. Indication: Trauma. Technique: CT brain: Noncontrast CT images of the brain. CT facial bones: Noncontrast CT images of the facial bones. Comparison: CT brain and CT facial bones 07/30/2024. Findings: CT Brain: Mild diffuse cerebral volume loss. No mass effect or midline shift. Michelle-white differentiation is maintained. No acute intracranial hemorrhage or pathologic extra-axial fluid collection. Suggested kyre-to-sqepfsmc chronic microvascular ischemic changes. Intracranial atherosclerotic calcifications. The calvarium is intact. CT facial bones: The facial bones are intact. No acute fracture or dislocation. Globes are symmetric. No retrobulbar hemorrhage. Minimal ethmoid sinus mucosal thickening. Moderate right sphenoid sinus mucosal thickening. Mastoid air cells are clear. Impression: 1. No acute intracranial hemorrhage or mass effect. 2. No acute fracture or dislocation of the facial bones. Please note that all CT scans at this facility use dose modulation, iterative reconstruction, and/or weight-based dosing when appropriate to reduce radiation dose to as low as reasonably achievable. Dictated by Mino Estrada MD @ 06/11/2025 2:22:54 PM (Electronically Signed)
--- NOTE | 2025-06-11 13:26 | CRLHL7_ITS ---
For Patients: As a result of the Century Cures Act, medical imaging exams and procedure reports are released immediately into your electronic medical record. You may view this report before your referring provider. If you have questions, please contact your health care provider. Indication: Fall, trauma Technique: Left wrist, 3 views. Comparison: None. Findings/Impression: There is an acute, impacted, highly comminuted, intra-articular fracture of the distal radius. There is up to 3 millimeters articular surface gapping at the distal radial articular surface. Accompanying acute, mildly displaced fracture of the ulnar styloid process. Soft tissue swelling about the wrist. Ulnar positive variance. Osseous demineralization. Dictated by Luz Elena Mcnair MD @ 06/11/2025 3:18:54 PM (Electronically Signed)
--- NOTE | 2025-06-11 13:26 | CRLHL7_ITS ---
For Patients: As a result of the Century Cures Act, medical imaging exams and procedure reports are released immediately into your electronic medical record. You may view this report before your referring provider. If you have questions, please contact your health care provider. Indication: Fall, trauma Technique: Left knee, 3 views. Comparison: Left knee radiographs 02/26/2017. Findings/Impression: Evaluation is somewhat limited by diffuse osseous demineralization. There is suspected cortical irregularity of the lateral tibial plateau. In addition, there is a moderate to large joint effusion with suspected lipohemarthrosis. Apparent lucency through the midportion of the patella may also reflect acute, nondisplaced fracture. Consider CT of the knee without contrast for further evaluation. Degenerative changes of the knee most pronounced in the patellofemoral compartment. Vascular calcifications are present. Dictated by Luz Elena Mcnair MD @ 06/11/2025 3:17:26 PM (Electronically Signed)
--- NOTE | 2025-06-11 13:26 | CRLHL7_ITS ---
For Patients: As a result of the Century Cures Act, medical imaging exams and procedure reports are released immediately into your electronic medical record. You may view this report before your referring provider. If you have questions, please contact your health care provider. Indication: Trauma. Technique: CT brain: Noncontrast CT images of the brain. CT facial bones: Noncontrast CT images of the facial bones. Comparison: CT brain and CT facial bones 07/30/2024. Findings: CT Brain: Mild diffuse cerebral volume loss. No mass effect or midline shift. Michelle-white differentiation is maintained. No acute intracranial hemorrhage or pathologic extra-axial fluid collection. Suggested kyqq-ez-jaatxgku chronic microvascular ischemic changes. Intracranial atherosclerotic calcifications. The calvarium is intact. CT facial bones: The facial bones are intact. No acute fracture or dislocation. Globes are symmetric. No retrobulbar hemorrhage. Minimal ethmoid sinus mucosal thickening. Moderate right sphenoid sinus mucosal thickening. Mastoid air cells are clear. Impression: 1. No acute intracranial hemorrhage or mass effect. 2. No acute fracture or dislocation of the facial bones. Please note that all CT scans at this facility use dose modulation, iterative reconstruction, and/or weight-based dosing when appropriate to reduce radiation dose to as low as reasonably achievable. Dictated by Mino Estrada MD @ 06/11/2025 2:22:35 PM (Electronically Signed)
--- NOTE | 2025-06-11 13:27 | ED.GENADULT ---
HPI - General Adult General Chief complaint: Fall/Minor Trauma <Kal Palma MD - Last Filed: 06/11/25 15:21> Stated complaint: fall <Kal Palma MD - Last Filed: 06/11/25 15:21> Time Seen by Provider: 06/11/25 13:25 <Kal Palma MD - Last Filed: 06/11/25 15:21> History of Present Illness HPI narrative: Patient is a 85-year-old white female who was ambulating in [place] and tripped on a curb. She hit her front part of her mouth knocked out her front tooth, and tooth 10. That is next to it. She completely avulsed these teeth . Looks like she also chipped her right front tooth on the medial aspect. She has an abrasion over her upper lip. She denies head or neck pain. She is on blood thinner for paroxysmal atrial fibrillation. She has a deformed wrist on the left as well as complaints of pain in that area and has tenderness in her left knee she had a partial patella removal on her left knee for injury. She denies back pain, denies chest pain or breathing difficulty. Denies abdominal pain. Denies pelvic pain. Her Burden coma Scale is 15, she denies back pain. <Kal Palma MD - Last Filed: 06/11/25 15:21> Related Data Home medications: Home Medications ?Medication ?Instructions ?Recorded ?Confirmed alendronate 70 mg tablet 70 mg PO QWEEK 06/14/22 02/19/24 calcium carbonate 600 mg PO BID 06/14/22 02/19/24 carvedilol 6.25 mg tablet 6.25 mg PO BID 06/14/22 02/19/24 cholecalciferol (vitamin D3) 25 25 mcg PO QDAY 06/14/22 02/19/24 mcg (1,000 unit) capsule diphenhydramine HCl 25 mg capsule 25 mg PO QHS PRN 06/14/22 02/19/24 (Benadryl) lisinopril 20 mg tablet 20 mg PO QDAY 06/14/22 02/19/24 multivitamin with folic acid 400 1 tab PO QAM 06/14/22 02/19/24 mcg tablet sotalol 80 mg tablet 80 mg PO ONCE 06/14/22 02/19/24 warfarin 3 mg tablet 3 mg PO DIRECTED 06/14/22 02/19/24 amlodipine 5 mg tablet 5 mg PO DAILY 02/19/24 02/19/24 hydrochlorothiazide 12.5 mg tablet 12.5 mg PO DAILY 02/19/24 02/19/24 nirmatrelvir 300 mg (150 mg 1 ea PO DIRECTED 02/19/24 02/19/24 x2)-ritonavir 100 mg tablet,dose pack (Paxlovid) Previous Rx's ?Medication ?Instructions ?Recorded hydrocodone 5 mg-acetaminophen 325 1 tab PO Q8H PRN pain #10 tabs 06/11/25 mg tablet <Kal Palma MD - Last Filed: 06/11/25 15:21> Allergies/adverse reactions: Allergies Allergy/AdvReac Type Severity Reaction Status Date / Time No Known Drug Allergies Allergy Verified 06/11/25 13:33 <Kal Palma MD - Last Filed: 06/11/25 15:21> Review of Systems Status of ROS: Reports: 6 or more systems reviewed and unremarkable except as noted in History and below <Kal Palma MD - Last Filed: 06/11/25 15:21> [facility] Medical History: Medical History Pacemaker ?Z95.0 - Presence of cardiac pacemaker (ICD-10) Atrial fibrillation ?I48.91 - Unspecified atrial fibrillation (ICD-10) Raynaud phenomenon ?I73.00 - Raynaud's syndrome without gangrene (ICD-10) Other and unspecified hyperlipidemia ?E78.5 - Hyperlipidemia, unspecified (ICD-10) Hypertension ?I10 - Essential (primary) hypertension (ICD-10) <Kal Palma MD - Last Filed: 06/11/25 15:21> Surgical History: Surgical History H/O: hysterectomy ?Z90.710 - Acquired absence of both cervix and uterus (ICD-10) <Kal Palma MD - Last Filed: 06/11/25 15:21> Social History: Social History Smoking Status: Never smoker Do you use any of these nicotine containing products: None Second hand tobacco smoke exposure: No How often do you have a drink containing alcohol: 4 or more times a week How many standard drinks containing alcohol do you have on a typical day: 1 or 2 How often do you have six or more drinks on one occasion: Never AUDIT-C Alcohol total score: 4 Non-prescribed substance use: denies use Caffeine: No Are you using contraception or practicing any form of control: No service: No <Kal Palma MD - Last Filed: 06/11/25 15:21> Exam Narrative: Exam Narrative: Objective: Primary survey airway breathing circulation disability are unremarkable. Secondary survey: Patient's HEENT shows the it right front tooth medially is mildly chipped her tooth 9. And 10 are completely avulsed. She get an abrasion over her upper lip. She has no palpable scalp tenderness or head pain. She has no neck pain or midline tenderness. Range of motion neck is full. She has no neurologic complaints with movement of her neck. Chest exam is unremarkable she has no palpable tenderness no palpable tenderness in her shoulders or right arm, her left arm shows a deformed wrist that is closed there is tenderness over the wrist and soft tissue swelling over the dorsum of the wrist. She has distal CMS that is intact. Lungs are clear, heart rhythm regular 2/6 systolic murmur Abdomen benign soft Pelvis stable hips are nontender. Left lower extremity shows a scar well healed over the anterior knee. And she has got left knee effusion. Range of motion is limited of full flexion extension. This causes pain. No open wounds noted. Distal CMS in left and right lower extremity are unremarkable Neurologic is nonfocal upper lower extremities <Kal Palma MD - Last Filed: 06/11/25 15:21> Const: Vital Signs, click to edit/add: Vital Signs - 24 hr 06/11/25 13:29 06/11/25 14:03 06/11/25 14:04 Temperature 97.7 F Pulse Rate 63 62 Pulse Rate [Pulse Oximeter] 68 Respiratory Rate 16 Blood Pressure 173/97 H Blood Pressure [Le ft Upper Arm] 150/138 H Pulse Oximetry 97 96 97 Oxygen Delivery Me thod Room Air 06/11/25 14:06 06/11/25 14:12 06/11/25 14:13 Temperature Pulse Rate 63 68 62 Pulse Rate [Pulse Oximeter] Respiratory Rate Blood Pressure 184/102 H 177/99 H Blood Pressure [Le ft Upper Arm] Pulse Oximetry 94 96 99 Oxygen Delivery Me thod 06/11/25 14:15 06/11/25 14:17 06/11/25 14:22 Temperature Pulse Rate 65 63 61 Pulse Rate [Pulse Oximeter] Respiratory Rate Blood Pressure 171/101 H 176/97 H Blood Pressure [Le ft Upper Arm] Pulse Oximetry 98 93 95 Oxygen Delivery Me thod 06/11/25 14:23 06/11/25 14:27 06/11/25 14:30 Temperature Pulse Rate 62 63 63 Pulse Rate [Pulse Oximeter] Respiratory Rate Blood Pressure 159/83 H Blood Pressure [Le ft Upper Arm] Pulse Oximetry 95 98 96 Oxygen Delivery Me thod 06/11/25 14:32 06/11/25 14:37 06/11/25 14:42 Temperature Pulse Rate 61 65 62 Pulse Rate [Pulse Oximeter] Respiratory Rate Blood Pressure 160/113 H 168/92 H 165/92 H Blood Pressure [Le ft Upper Arm] Pulse Oximetry 95 95 98 Oxygen Delivery Me thod 06/11/25 14:45 06/11/25 14:46 06/11/25 14:52 Temperature Pulse Rate 66 63 Pulse Rate [Pulse Oximeter] Respiratory Rate Blood Pressure 180/102 H 165/116 H Blood Pressure [Le ft Upper Arm] Pulse Oximetry 97 96 Oxygen Delivery Me thod <Kal Palma MD - Last Filed: 06/11/25 15:21> Vital Signs, click to edit/add: Vital Signs - 24 hr 06/11/25 13:29 06/11/25 14:03 06/11/25 14:04 Temperature 97.7 F Pulse Rate 63 62 Pulse Rate [Pulse Oximeter] 68 Respiratory Rate 16 Blood Pressure 173/97 H Blood Pressure [Le ft Upper Arm] 150/138 H Pulse Oximetry 97 96 97 Oxygen Delivery Me thod Room Air 06/11/25 14:06 06/11/25 14:12 06/11/25 14:13 Temperature Pulse Rate 63 68 62 Pulse Rate [Pulse Oximeter] Respiratory Rate Blood Pressure 184/102 H 177/99 H Blood Pressure [Le ft Upper Arm] Pulse Oximetry 94 96 99 Oxygen Delivery Me thod 06/11/25 14:15 06/11/25 14:17 06/11/25 14:22 Temperature Pulse Rate 65 63 61 Pulse Rate [Pulse Oximeter] Respiratory Rate Blood Pressure 171/101 H 176/97 H Blood Pressure [Le ft Upper Arm] Pulse Oximetry 98 93 95 Oxygen Delivery Me thod 06/11/25 14:23 06/11/25 14:27 06/11/25 14:30 Temperature Pulse Rate 62 63 63 Pulse Rate [Pulse Oximeter] Respiratory Rate Blood Pressure 159/83 H Blood Pressure [Le ft Upper Arm] Pulse Oximetry 95 98 96 Oxygen Delivery Me thod 06/11/25 14:32 06/11/25 14:37 06/11/25 14:42 Temperature Pulse Rate 61 65 62 Pulse Rate [Pulse Oximeter] Respiratory Rate Blood Pressure 160/113 H 168/92 H 165/92 H Blood Pressure [Le ft Upper Arm] Pulse Oximetry 95 95 98 Oxygen Delivery Me thod 06/11/25 14:45 06/11/25 14:46 06/11/25 14:52 Temperature Pulse Rate 66 63 Pulse Rate [Pulse Oximeter] Respiratory Rate Blood Pressure 180/102 H 165/116 H Blood Pressure [Le ft Upper Arm] Pulse Oximetry 97 96 Oxygen Delivery Me thod <Ivette Higgins MD - Last Filed: 06/11/25 17:07> Course Course ED Course: I was asked follow-up in the CT scan results on this patient. CT shows an acute patellar fracture with hemarthrosis. Discussed with Melania Broussard, Orthopedics, who recommended knee immobilizer and weight-bearing as tolerated. Unfortunately, patient does live independently and does not have any family in town until tomorrow. With a wrist fracture and knee immobilizer in place , it will not be possible for the patient to get around at home. Discussed with Dr. Sam who accepts the patient for admission. <Ivette Higgins MD - Last Filed: 06/11/25 17:07> Vital Signs Vital signs: Initial Vital Signs Temperature 97.7 F 06/11/25 13:29 Temperature Source Temporal Artery Scan 06/11/25 13:29 Pulse Rate 68 06/11/25 13:29 Respiratory Rate 16 06/11/25 13:29 Blood Pressure 150/138 H 06/11/25 13:29 Blood Pressure Mean 142 H 06/11/25 13:29 Pulse Oximetry 97 06/11/25 13:29 Oxygen Delivery Method Room Air 06/11/25 13:29 Vital Signs Temperature 97.7 F 06/11/25 13:29 Pulse Rate 68 06/11/25 13:29 Respiratory Rate 16 06/11/25 13:29 Blood Pressure 150/138 H 06/11/25 13:29 Pulse Oximetry 97 06/11/25 13:29 Oxygen Delivery Method Room Air 06/11/25 13:29 Temperature 97.7 F 06/11/25 13:29 Pulse Rate 63 06/11/25 14:46 Respiratory Rate 16 06/11/25 13:29 Blood Pressure 165/116 H 06/11/25 14:52 Pulse Oximetry 96 06/11/25 14:46 Oxygen Delivery Method Room Air 06/11/25 13:29 <Kal Palma MD - Last Filed: 06/11/25 15:21> Initial Vital Signs Temperature 97.7 F 06/11/25 13:29 Temperature Source Temporal Artery Scan 06/11/25 13:29 Pulse Rate 68 06/11/25 13:29 Respiratory Rate 16 06/11/25 13:29 Blood Pressure 150/138 H 06/11/25 13:29 Blood Pressure Mean 142 H 06/11/25 13:29 Pulse Oximetry 97 06/11/25 13:29 Oxygen Delivery Method Room Air 06/11/25 13:29 Vital Signs Temperature 97.7 F 06/11/25 13:29 Pulse Rate 68 06/11/25 13:29 Respiratory Rate 16 06/11/25 13:29 Blood Pressure 150/138 H 06/11/25 13:29 Pulse Oximetry 97 06/11/25 13:29 Oxygen Delivery Method Room Air 06/11/25 13:29 Temperature 97.7 F 06/11/25 13:29 Pulse Rate 63 06/11/25 14:46 Respiratory Rate 16 06/11/25 13:29 Blood Pressure 165/116 H 06/11/25 14:52 Pulse Oximetry 96 06/11/25 14:46 Oxygen Delivery Method Room Air 06/11/25 13:29 <Ivette Higgins MD - Last Filed: 06/11/25 17:07> Medications Administered Medications: Generic Name Dose Route Start Last Admin Trade Name Freq PRN Reason Stop Dose Admin Ondansetron HCl 4 mg 06/11/25 16:10 06/11/25 16:18 Ondansetron Odt 4 Mg Tab PO 06/11/25 16:11 4 mg ONCE ONE Administration Discontinued Medications Generic Name Dose Route Start Last Admin Trade Name Freq PRN Reason Stop Dose Admin Hydrocodone Bitart/Acetaminophen 1 tab 06/11/25 14:32 06/11/25 14:43 Hydrocodone-Acetamin 5-325 Mg 1 Tab PO 06/11/25 14:33 1 tab ONCE ONE Administration <Kal Palma MD - Last Filed: 06/11/25 15:21> Generic Name Dose Route Start Last Admin Trade Name Freq PRN Reason Stop Dose Admin Ondansetron HCl 4 mg 06/11/25 16:10 06/11/25 16:18 Ondansetron Odt 4 Mg Tab PO 06/11/25 16:11 4 mg ONCE ONE Administration Discontinued Medications Generic Name Dose Route Start Last Admin Trade Name Freq PRN Reason Stop Dose Admin Hydrocodone Bitart/Acetaminophen 1 tab 06/11/25 14:32 06/11/25 14:43 Hydrocodone-Acetamin 5-325 Mg 1 Tab PO 06/11/25 14:33 1 tab ONCE ONE Administration <Ivette Higgins MD - Last Filed: 06/11/25 17:07> Medical Decision Making MDM Narrative Medical decision making narrative: 85-year-old female with paroxysmal atrial fib on blood thinner, with a fall and abrasion to the upper lip tooth avulsion, left wrist fracture closed, left knee hematoma or effusion. At this point will check a head and neck CT because of the patient's age and fall, will also check facial bone CT. Will get an x-ray of her left wrist and left knee. Will also check blood work and INR. Disposition pending findings above. Addendum 3:00 p.m.: The patient's head neck and facial CTs look unremarkable for acute change. Her left wrist shows a comminuted distal radial fracture and ulnar styloid fracture. Fortunately it is impacted and fairly straight on the lateral view. Procedure: The patient had a short-arm thumb spica splint placed as well as a volar splint and this was wrapped and she was given an arm sling. Tolerated this well. She is given a [place] orally. X-ray of her knee to my review shows significant arthritic change but no obvious fracture await Radiology overreading. INR is pending. With INR results and results from the read of her knee will likely allow the patient to discharge home. She needs to obviously see a dentist regarding her teeth. She will get orthopedic follow-up. Addendum: 3:20 p.m. the patient's over read of her x-ray by Radiology felt she has a questionable lateral tibial plateau irregularity and questionable with patellar irregularity. She will get a CT scan of her knee. If this would be positive she would likely need admission, for PT, of pain assessment, ortho consult. If this looks reassuring I think she could be discharged home she can ambulate and then follow up with Ortho and dental as planned. <Kal Palma MD - Last Filed: 06/11/25 15:21> Lab Data Labs: Lab Results 06/11/25 Range/Units 14:50 INR 1.96 H (0.91-1.10) <Kal Palma MD - Last Filed: 06/11/25 15:21> Lab Results 06/11/25 Range/Units 14:50 INR 1.96 H (0.91-1.10) <Ivette Higgins MD - Last Filed: 06/11/25 17:07> Imaging Data CT of the knee: Attestation: I have reviewed the pertinent imaging results. <Ivette Higgins MD - Last Filed: 06/11/25 17:07> Radiologist's impression: TECHNIQUE: CT left knee without contrast. COMPARISON: None. FINDINGS: There is diffuse osseous demineralization, limiting evaluation for subtle osseous abnormalities. There is an acute, comminuted, minimally displaced, intra-articular fracture of the patella, predominantly horizontal in orientation. The fracture involves both the lateral and medial patellar facets with minimal irregularity of the articular surface. There is mild cortical buckling/irregularity along the posterior aspect of the lateral tibial plateau without convincing fracture line (for example series 6, image 23). A moderate-sized hemarthrosis is present. 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 There is chondrocalcinosis in the medial and lateral femorotibial compartments. Mild vascular calcifications. Linear mineralization within the patellar tendon. Subcutaneous varicosities are present. IMPRESSION: 1. Acute, comminuted, intra-articular fracture of the patella involving the medial and lateral patellar facets. 2. No convincing tibial plateau fracture. If there is high clinical concern, an MRI of the knee may be obtained at clinical discretion. 3. Moderate hemarthrosis. <Ivette Higgins MD - Last Filed: 06/11/25 17:07> Discharge Plan Discharge Clinical Impression: Fall, Fracture of left wrist, Avulsed tooth, Patellar fracture <Kal Palma MD - Last Filed: 06/11/25 15:21> Patient Disposition: Admitted As Inpatient <Kal Palma MD - Last Filed: 06/11/25 15:21> Condition: Stable <Kal Palma MD - Last Filed: 06/11/25 15:21> Activity Level: Light activity and Weight Bearing as Tolerated <Kal Palma MD - Last Filed: 06/11/25 15:21> Light activity and Weight Bearing as Tolerated <Ivette Higgins MD - Last Filed: 06/11/25 17:07> Discharge Diet: Regular <Kal Palma MD - Last Filed: 06/11/25 15:21> Regular <Ivette Higgins MD - Last Filed: 06/11/25 17:07>
[2025-06-11] MEDS: HYDROCODONE-ACETAMIN 5-325 MG 1 TAB PO (14:43)
--- NOTE | 2025-06-11 15:19 | CRLHL7_ITS ---
For Patients: As a result of the Century Cures Act, medical imaging exams and procedure reports are released immediately into your electronic medical record. You may view this report before your referring provider. If you have questions, please contact your health care provider. INDICATION: Knee pain after fall TECHNIQUE: CT left knee without contrast. COMPARISON: None. FINDINGS: There is diffuse osseous demineralization, limiting evaluation for subtle osseous abnormalities. There is an acute, comminuted, minimally displaced, intra-articular fracture of the patella, predominantly horizontal in orientation. The fracture involves both the lateral and medial patellar facets with minimal irregularity of the articular surface. There is mild cortical buckling/irregularity along the posterior aspect of the lateral tibial plateau without convincing fracture line (for example series 6, image 23). A moderate-sized hemarthrosis is present. 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 There is chondrocalcinosis in the medial and lateral femorotibial compartments. Mild vascular calcifications. Linear mineralization within the patellar tendon. Subcutaneous varicosities are present. IMPRESSION: 1. Acute, comminuted, intra-articular fracture of the patella involving the medial and lateral patellar facets. 2. No convincing tibial plateau fracture. If there is high clinical concern, an MRI of the knee may be obtained at clinical discretion. 3. Moderate hemarthrosis. Please note that all CT scans at this facility use dose modulation, iterative reconstruction, and/or weight-based dosing when appropriate to reduce radiation dose to as low as reasonably achievable. Dictated by Luz Elena Mcnair MD @ 06/11/2025 4:27:17 PM (Electronically Signed)
[2025-06-11 15:26] LABS: INR 1.96 (0.91-1.10); Prothrombin Time 23.4 Seconds
[2025-06-11] MEDS: ONDANSETRON ODT 4 MG TAB PO (16:18)
--- NOTE | 2025-06-11 17:32 | PM.IMHP1 ---
Assessment and Plan Assessment and plan (1) Fall with significant injury: Problem comment: -avulsed #10 central incisor -comminuted fractures of the left wrist and patella -OT/PT to see in am; adaptive equipment to be reviewed with family -two daughters will be available for caregiving as well as a significant other Status: Acute (2) Closed fracture of left wrist: Problem comment: -Chandler to see 06/14, likely ORIF this week Status: Acute (3) Comminuted fracture of left patella: Problem comment: w/hemarthrosis -WBAT Status: Acute (4) Avulsion of tooth due to trauma: Problem comment: -#10; reimplantation was not attempted -She can see her dentist as an outpatient for new bridge Status: Acute (5) Acute hypokalemia: Problem comment: mild, oral replacement Status: Acute (6) Paroxysmal atrial fibrillation: Problem comment: -telemetry -Sotalol and warfarin Status: Acute (7) Warfarin anticoagulation: Problem comment: -discuss if Lovenox vs coumadin in the short time between admission and surgery Status: Acute (8) Hypertension: Problem comment: amlodipine, HCTZ, lisinopril -amlodipine really helps her raynauds; HCTZ is well liked for the pedal edema (likely from amlodipine). Patient does feel tippy at times and likely needs sitting/standing BP and consideration if lisinopril can be lowered, checking TSH as well. Status: Acute (9) Pacemaker: Problem comment: -Presence of a dual chamber permanent pacemaker -Placed 04/09/2022 -10/03 sinus node dysfunction Status: Acute (10) Osteoporosis: Problem comment: alendronate weekly Status: Acute Hospitalist- H&P: HPI History of Present Illness Date Seen: 06/11/25 Chief complaint: fall Narrative: ADMISSION HISTORY AND PHYSICAL - HOSPITALIST Chief Complaint: fall -- knocked out a tooth, broke a dental bridge left wrist and knee pain HPI: Patient is an 85-year-old white female with a history of paroxysmal AFib with sinus node dysfunction status post insertion of a dual chamber pacemaker and is maintained on sotalol and warfarin who presents after a fall this morning. She says she was walking on a sidewalk near the [facility] and caught the tip of toe on the concrete and down she went. It was witnessed and folks assisted and called EMS. She went down hard and hit her upper lip knocking out her central incisor and the bridge that held another tooth. Her weight fell against her left wrist in knee. She has pain and disfigurement in both. She did not lose consciousness. EMS was called. Trauma activation was pursued in the emergency room. She was hemodynamically stable and cognitively intact with a GCS of 15 throughout her evaluation. Ultimately she was diagnosed with a traumatic avulsion of the left #10 central incisor.. No other facial bone fractures or head injury were appreciated. She was also diagnosed with a left distal comminuted, intraarticular radius fracture with associated ulnar styloid process fracture. Finally, she sustained a left patella comminuted intra-articular fracture involving both the medial and lateral patellar facets. A large hemarthrosis was noted in the left knee as well. Orthopedic surgery reviewed all of her imaging. She will need operative fixation of the wrist in the coming days, she was placed in a splint and sling. Her patella fracture will likely be nonoperative and she was placed in a knee immobilizer with weight-bearing as tolerated. The decision was not to pursue reimplantation of her tooth. She was given Zofran and [place] in the emergency room but was unable to safely discharge as she lives alone. ER COURSE: As above. Her INR was checked. No other labs. Imaging as described below. Meds as described above. Hospitalist team was asked to admit for inpatient physical and occupational therapies, pain control and continued observation. CODE STATUS: PCP: NITHYA Noonan EMERGENCY CONTACT PLAN: NIMCO DOMINIQUE Daughter [phone] I've updated the PFSH, medications and allergies in the Expanse tabs. INVESTIGATIONS: LABS/MICRO/ECG/IMAGING 165/116. Pulse 62. Respirations 16. Afebrile. 95% on room air. INR tonight 1.96. No other labs drawn. I have reviewed all ordered CT scans and x-rays. This includes a cervical spine CT, face CT, head CT, knee CT, wrist and knee x-rays. Left Knee 1. Acute, comminuted, intra-articular fracture of the patella involving the medial and lateral patellar facets. 2. No convincing tibial plateau fracture. If there is high clinical concern, an MRI of the knee may be obtained at clinical discretion. 3. Moderate hemarthrosis. Left Wrist There is an acute, impacted, highly comminuted, intra-articular fracture of the distal radius. There is up to 3 millimeters articular surface gapping at the distal radial articular surface. Accompanying acute, mildly displaced fracture of the ulnar styloid process. Soft tissue swelling about the wrist. Ulnar positive variance. Osseous demineralization. Head CT 1. No acute intracranial hemorrhage or mass effect. 2. No acute fracture or dislocation of the facial bones. ECHO 10/26 Final Impressions: 1. Normal LV size, normal wall thickness, normal function with an estimated EF of 65 - 70%. 2. Right ventricular cavity size is normal, global systolic RV function is normal. 3. No significant valve disease detected. 4. Normal estimated CVP. REVIEW OF SYSTEMS: 12-point ROS completed with patient and negative unless otherwise stated in HPI or below. PHYSICAL EXAM: CONSTITUTIONAL: Alert. appears aware and makes delightful conversation and jokes. GENERAL: Well-developed and in no resp distress VITAL SIGNS: see record. HEENT: superficial abrasions to her nose, upper and lower lips. gums are pink and hemostatic. CARDIAC: rhythm is regular. There is no S3 or rub. No harsh murmurs. Extremities show trace edema with symmetrical pulses. PULM: good air entry with no wheeze. MSK: left wrist is in splint and cynthia wrap; NVI to fingers and tip of thumb. The left leg is in a knee imbolizer and NVI distally. there is mild edema and bruising to the right patella and superficial abrasion to her right palm. NEURO: Speech is fluent. A brief neurologic exam is negative. SKIN: No rashes, petechiae, concerning changes other that noted above. PSYCHIATRIC: Euthymic. ADMIT TO MEDSURG: FLOOR CARE DVT: continue warfarin - in am. may need to discuss just doing lovenox if ORIF of wrist is planned in the early week. GI: PO intake Time spent: Today I spent 75 minutes seeing the patient, discussing the patient with ER staff, reviewing Expanse and EPIC notes/diagnostics, discussing the care plan with our care time that includes social work, PT/OT, pharmacy, RT, prison and documenting my impressions and plan in the medical record. Medical Decision Making Medical Decision Making Has patient completed a Health Care Directive: No [facility] Medical History (Updated 06/11/25 @ 19:34 by Juany Sam MD) Warfarin anticoagulation ?Z79.01 - alf (current) use of anticoagulants (ICD-10) Paroxysmal atrial fibrillation ?I48.0 - Paroxysmal atrial fibrillation (ICD-10) Osteoporosis ?M81.0 - Age-related osteoporosis without current pathological fracture (ICD-10) Pacemaker ?Z95.0 - Presence of cardiac pacemaker (ICD-10) Raynaud phenomenon ?I73.00 - Raynaud's syndrome without gangrene (ICD-10) Other and unspecified hyperlipidemia ?E78.5 - Hyperlipidemia, unspecified (ICD-10) Hypertension ?I10 - Essential (primary) hypertension (ICD-10) Surgical History H/O: hysterectomy ?Z90.710 - Acquired absence of both cervix and uterus (ICD-10) Social History What is your current living situation?: I presently have a place to live Problems where you live: no known problems Problems where you live details: no known problems In the past 12 months, utilities in danger of being shut off: no In past 12 months, lack of transportation kept you from medical appts, meetings, work, or getting things needed for daily living: no In the past 12 mos, have been you worried that your food would run out before you had money to buy more?: never true In the past 12 mos, the food you bought just didn't last and you didn't have money to buy more?: never true Highest level of school completed/degree received: Master's degree Smoking Status: Never smoker Do you use any of these nicotine containing products: None Second hand tobacco smoke exposure: No How often do you have a drink containing alcohol: 4 or more times a week How many standard drinks containing alcohol do you have on a typical day: 1 or 2 How often do you have six or more drinks on one occasion: Never AUDIT-C Alcohol total score: 4 Non-prescribed substance use: denies use Caffeine: No How often does anyone, including family, friends and others, physically hurt you: never How often does anyone, including family, friends and others, insult or talk down to you: never How often does anyone, including family, friends and others, threaten you with harm: never How often does anyone, including family, friends and others, scream or curse at you: never Are you using contraception or practicing any form of control: No service: No Meds Home Medications and Allergies Home Medications ?Medication ?Instructions ?Recorded ?Confirmed ?Type alendronate 70 mg tablet 70 mg PO QWEEK 06/14/22 02/19/24 History calcium carbonate 600 mg PO BID 06/14/22 02/19/24 History carvedilol 6.25 mg tablet 6.25 mg PO BID 06/14/22 02/19/24 History cholecalciferol (vitamin D3) 25 25 mcg PO QDAY 06/14/22 02/19/24 History mcg (1,000 unit) capsule diphenhydramine HCl 25 mg capsule 25 mg PO QHS PRN 06/14/22 02/19/24 History (Benadryl) lisinopril 20 mg tablet 20 mg PO QDAY 06/14/22 02/19/24 History multivitamin with folic acid 400 1 tab PO QAM 06/14/22 02/19/24 History mcg tablet sotalol 80 mg tablet 80 mg PO ONCE 06/14/22 02/19/24 History warfarin 3 mg tablet 3 mg PO DIRECTED 06/14/22 02/19/24 History amlodipine 5 mg tablet 5 mg PO DAILY 02/19/24 02/19/24 History hydrochlorothiazide 12.5 mg tablet 12.5 mg PO DAILY 02/19/24 02/19/24 History nirmatrelvir 300 mg (150 mg 1 ea PO DIRECTED 02/19/24 02/19/24 History x2)-ritonavir 100 mg tablet,dose pack (Paxlovid) hydrocodone 5 mg-acetaminophen 325 1 tab PO Q8H PRN pain #10 tabs 06/11/25 Rx mg tablet Allergies Allergy/AdvReac Type Severity Reaction Status Date / Time No Known Drug Allergies Allergy Verified 06/11/25 13:33 Exam Const: Vital Signs, click to edit/add: Vital Signs - 24 hr 06/11/25 13:29 06/11/25 14:03 06/11/25 14:04 Temperature 97.7 F Pulse Rate 63 62 Pulse Rate [Pulse Oximeter] 68 Respiratory Rate 16 Blood Pressure 173/97 H Blood Pressure [Le ft Upper Arm] 150/138 H Pulse Oximetry 97 96 97 Oxygen Delivery Me thod Room Air 06/11/25 14:06 06/11/25 14:12 06/11/25 14:13 Temperature Pulse Rate 63 68 62 Pulse Rate [Pulse Oximeter] Respiratory Rate Blood Pressure 184/102 H 177/99 H Blood Pressure [Le ft Upper Arm] Pulse Oximetry 94 96 99 Oxygen Delivery Me thod 06/11/25 14:15 06/11/25 14:17 06/11/25 14:22 Temperature Pulse Rate 65 63 61 Pulse Rate [Pulse Oximeter] Respiratory Rate Blood Pressure 171/101 H 176/97 H Blood Pressure [Le ft Upper Arm] Pulse Oximetry 98 93 95 Oxygen Delivery Me thod 06/11/25 14:23 06/11/25 14:27 06/11/25 14:30 Temperature Pulse Rate 62 63 63 Pulse Rate [Pulse Oximeter] Respiratory Rate Blood Pressure 159/83 H Blood Pressure [Le ft Upper Arm] Pulse Oximetry 95 98 96 Oxygen Delivery Me thod 06/11/25 14:32 06/11/25 14:37 06/11/25 14:42 Temperature Pulse Rate 61 65 62 Pulse Rate [Pulse Oximeter] Respiratory Rate Blood Pressure 160/113 H 168/92 H 165/92 H Blood Pressure [Le ft Upper Arm] Pulse Oximetry 95 95 98 Oxygen Delivery Me thod 06/11/25 14:45 06/11/25 14:46 06/11/25 14:52 Temperature Pulse Rate 66 63 Pulse Rate [Pulse Oximeter] Respiratory Rate Blood Pressure 180/102 H 165/116 H Blood Pressure [Le ft Upper Arm] Pulse Oximetry 97 96 Oxygen Delivery Me thod 06/11/25 17:23 Temperature Pulse Rate 62 Pulse Rate [Pulse Oximeter] Respiratory Rate Blood Pressure Blood Pressure [Le ft Upper Arm] Pulse Oximetry 95 Oxygen Delivery Me thod
[2025-06-11 18:53] LABS: Hematocrit* 42.8 % (33.0-51.0); Hemoglobin* 14.2 gm/dL (12.0-16.0); Immature Granulocytes Pct Auto 0.1 %; Mean Corpuscular HGB Conc 33 gm/dL (32-36); Mean Corpuscular Hemoglobin 31 pg (26-34); Mean Corpuscular Volume 94 fL (80-100); RDW Coefficient of Variation % 13.9 % (11.5-15.5); Red Blood Count* 4.54 m/uL (4.00-5.20); White Blood Count* 11.77 K/uL (4.50-11.00)
[2025-06-11 18:56] LABS: Immature Granulocytes Abs Auto 0.00 K/uL (0.00-0.30); Lymphocytes Absolute Auto 1.20 K/uL (0.90-2.90); Slide Review Reflex No
[2025-06-11 18:57] LABS: Chloride* 99 mmol/L (96-114); Potassium* 3.4 mmol/L (3.6-5.1); Sodium* 134 mmol/L (135-149)
[2025-06-11 19:00] LABS: Anion Gap 5 mEq/L (7-15); Blood Urea Nitrogen* 16 mg/dL (7-30); Carbon Dioxide* 30 mmol/L (20-32); Creatinine* 0.8 mg/dL (0.5-1.5); Estimated Glomerular Filt Rate 73 ml/min
[2025-06-11 19:01] LABS: Calcium* 9.2 mg/dL (8.4-10.6); Glucose* 156 mg/dL (60-115)
[2025-06-11] MEDS: ACETAMINOPHEN 325 MG TABLET 1000 MG PO (19:57)
[2025-06-11] MEDS: SODIUM CHLORIDE 0.9 % (FLUSH) 10 ML SYRINGE 5 ML IVF (19:59)
[2025-06-11] MEDS: POTASSIUM BICARB 25 MEQ EFFERVESCENT TAB PO ×2 (20:02→21:46)
[2025-06-12] MEDS: ACETAMINOPHEN 325 MG TABLET 1000 MG PO ×3 (00:38→12:35)
[2025-06-12 02:45] VITALS: PULSE 65
[2025-06-12 03:00] VITALS: BP 104/62; PULSE 71; RESP 18; TEMP 36.2; O2SAT 95
--- NOTE | 2025-06-12 06:21 | PC.NURSE ---
End of shift report [id number]: AxOx4. Rates pain from a 2-10/10 in her L wrist, prn pain meds offered and given with relief. L hand is in a splint, CMS intact. L knee is in an immobilizer. Pt ambulated 1A, GB to bedside commode. Pt is resting in bed, call light within reach.?
[2025-06-12 06:41] LABS: Hematocrit* 37.4 % (33.0-51.0); Hemoglobin* 12.4 gm/dL (12.0-16.0); Mean Corpuscular HGB Conc 33 gm/dL (32-36); Mean Corpuscular Hemoglobin 31 pg (26-34); Mean Corpuscular Volume 94 fL (80-100); Red Blood Count* 3.96 m/uL (4.00-5.20); White Blood Count* 8.49 K/uL (4.50-11.00)
[2025-06-12 06:45] LABS: Slide Review Reflex No
[2025-06-12 07:00] VITALS: BP 99/61; PULSE 62; PULSE 63; RESP 16; TEMP 36.4; O2SAT 96
[2025-06-12 07:15] LABS: Chloride* 99 mmol/L (96-114); Potassium* 4.2 mmol/L (3.6-5.1); Sodium* 130 mmol/L (135-149)
[2025-06-12 07:18] LABS: Anion Gap 1 mEq/L (7-15); Blood Urea Nitrogen* 21 mg/dL (7-30); Calcium* 9.0 mg/dL (8.4-10.6); Carbon Dioxide* 30 mmol/L (20-32); Creatinine* 1.0 mg/dL (0.5-1.5); Estimated Glomerular Filt Rate 56 ml/min; Glucose* 108 mg/dL (60-115)
--- NOTE | 2025-06-12 09:06 | P.DS_ITS ---
DS: Providers Provider Date Seen: 06/12/25 Date of admission: 06/11/25 17:52 Primary care physician: Brianna Mckay PA-C Admitting Clinician: Juany Sam MD Consults: 06/11/25 18:14 Consult to Occupational Therapy [CONS] Routine Comment: Reason(s) for OT Consult:: Evaluate and Treat Any Restrictions?:: No Restrictions Consult to Physical Therapy [CONS] Routine Comment: Reason(s) for PT Consult:: Evaluate and Treat Any Restrictions?:: No Restrictions Consult to Olive Packer [CONS] Routine Comment: Reason for Consult:: Social Service Consult Attending Physician on discharge: Hiral Silverio MD Date of Discharge: 06/12/25 DS: Diagnosis Discharge Diagnosis (1) Fall with significant injury: Status: Acute Problem details: -avulsed #10 central incisor -comminuted fractures of the left wrist and patella -OT/PT to see in am; adaptive equipment to be reviewed with family -two daughters will be available for caregiving as well as a significant other (2) Closed fracture of left wrist: Status: Acute Problem details: -Chandler to see 06/14, likely ORIF this week (3) Comminuted fracture of left patella: Status: Acute Problem details: w/hemarthrosis -WBAT (4) Avulsion of tooth due to trauma: Status: Acute Problem details: -#10; reimplantation was not attempted -She can see her dentist as an outpatient for new bridge, patient aware (5) Acute hypokalemia: Status: Acute Problem details: - mild, replaced, normalized by discharge (6) Paroxysmal atrial fibrillation: Status: Acute Problem details: -telemetry reassuring during stay -Sotalol and warfarin (7) Warfarin anticoagulation: Status: Acute Problem details: - chads Vasc of 4, moderate risk patient - arrhythmia burden low - reviewed options with patient regarding bridging; she does not desire Lovenox so Coumadin will be held on discharge with the potentialof upcoming surgical intervention (8) Hypertension: Status: Acute Problem details: - amlodipine, HCTZ, lisinopril, also on carvedilol and sotalol - primarily on amlodipine for Raynaud's and hydrochlorothiazide for edema, symptoms on admission consistent with orthostasis, normal TSH - blood pressure noted to be as low as 99 systolic during stay - recommend holding meds above given fall risk with close PCP follow-up and home blood pressure checks once daily (9) Pacemaker: Status: Acute Problem details: -Presence of a dual chamber permanent pacemaker -Placed 04/09/2022 -2/ sinus node dysfunction (10) Osteoporosis: Status: Acute Problem details: alendronate weekly DS: Summary Hospital Course Hospital Course: Nemesio is a delightful 85-year-old female who had a mechanical fall on 06/11/2025, imaging in ER consistent with an acute, impacted, comminuted fracture of the L distal radius + displaced fracture of L ulnar styloid process. Also noted to have an acute, comminuted, intra-articular fracture of the patella, knee immobilizer was placed. Reassuring CTs of head, facial bones, C-spine. She was unable to manage discharge home alone from the emergency room; family was unable to pick her up until today, so she was kept overnight for pain management and monitoring. Pain controlled with Tylenol and oral oxycodone. Warfarin (for atrial fibrillation, paroxysmal) held during stay Given hemarthrosis of the knee and potential for upcoming surgery. We discussed bridging with Lovenox prior to orthopedic surgery follow-up; ultimately deferred by patient. Her chads Vasc is 4 and her arrhythmia burden is low. Notably had hypotension during stay with occasional symptoms of orthostasis; ultimately, her lisinopril, amlodipine, and hydrochlorothiazide were held upon discharge with home blood pressure monitoring recommended. Nemesio has family that is able to assist her at home today, and she feels comfortable discharging today with close orthopedic follow-up scheduled. Status at Discharge Overall status at discharge: patient is progressing back to baseline Time Spent with Patient Time attestation: Total time spent providing and/or coordinating discharge services: Time spent: Greater than 30 minutes Specific discharge activities: Medication reconciliation, Coumadin discussion, documentation Exam Narrative: Exam Narrative: GEN: Alert and oriented, nontoxic HEENT: EOMIs bilaterally, no scleral icterus. No pain or bleeding in mouth near missing tooth. Small upper lip abrasion that is hemostatic CV: RRR, No concerning murmurs R: LCTA bilaterally Ext: Left knee immobilizer in place, no concerning edema distally. Normal sensation and pulses. L wrist splinted with mild edema of L fingers but full ROM and normal sensation, mild edema of R fingers with full ROM and sensation Neuro: Nonfocal Psych: Appropriate Const: Vital Signs, click to edit/add: Vital Signs - 24 hr 06/11/25 13:29 06/11/25 14:03 06/11/25 14:04 Temperature 97.7 F Pulse Rate 63 62 Pulse Rate [Pulse Oximeter] 68 Respiratory Rate 16 Blood Pressure 173/97 H Blood Pressure [Le ft Upper Arm] 150/138 H Blood Pressure [Ri ght Arm] Pulse Oximetry 97 96 97 Oxygen Delivery Me thod Room Air 06/11/25 14:06 06/11/25 14:12 06/11/25 14:13 Temperature Pulse Rate 63 68 62 Pulse Rate [Pulse Oximeter] Respiratory Rate Blood Pressure 184/102 H 177/99 H Blood Pressure [Le ft Upper Arm] Blood Pressure [Ri ght Arm] Pulse Oximetry 94 96 99 Oxygen Delivery Me thod 06/11/25 14:15 06/11/25 14:17 06/11/25 14:22 Temperature Pulse Rate 65 63 61 Pulse Rate [Pulse Oximeter] Respiratory Rate Blood Pressure 171/101 H 176/97 H Blood Pressure [Le ft Upper Arm] Blood Pressure [Ri ght Arm] Pulse Oximetry 98 93 95 Oxygen Delivery Me thod 06/11/25 14:23 06/11/25 14:27 06/11/25 14:30 Temperature Pulse Rate 62 63 63 Pulse Rate [Pulse Oximeter] Respiratory Rate Blood Pressure 159/83 H Blood Pressure [Le ft Upper Arm] Blood Pressure [Ri ght Arm] Pulse Oximetry 95 98 96 Oxygen Delivery Me thod 06/11/25 14:32 06/11/25 14:37 06/11/25 14:42 Temperature Pulse Rate 61 65 62 Pulse Rate [Pulse Oximeter] Respiratory Rate Blood Pressure 160/113 H 168/92 H 165/92 H Blood Pressure [Le ft Upper Arm] Blood Pressure [Ri ght Arm] Pulse Oximetry 95 95 98 Oxygen Delivery Me thod 06/11/25 14:45 06/11/25 14:46 06/11/25 14:52 Temperature Pulse Rate 66 63 Pulse Rate [Pulse Oximeter] Respiratory Rate Blood Pressure 180/102 H 165/116 H Blood Pressure [Le ft Upper Arm] Blood Pressure [Ri ght Arm] Pulse Oximetry 97 96 Oxygen Delivery Me thod 06/11/25 17:23 06/11/25 17:24 06/11/25 17:25 Temperature Pulse Rate 62 61 60 Pulse Rate [Pulse Oximeter] Respiratory Rate Blood Pressure 152/97 H Blood Pressure [Le ft Upper Arm] Blood Pressure [Ri ght Arm] Pulse Oximetry 95 98 92 Oxygen Delivery Me thod 06/11/25 17:30 06/11/25 17:31 06/11/25 17:36 Temperature Pulse Rate 62 62 63 Pulse Rate [Pulse Oximeter] Respiratory Rate Blood Pressure 139/70 143/69 H Blood Pressure [Le ft Upper Arm] Blood Pressure [Ri ght Arm] Pulse Oximetry 99 98 98 Oxygen Delivery Me thod 06/11/25 17:45 06/11/25 17:45 06/11/25 19:00 Temperature 97.7 F 98.3 F Pulse Rate Pulse Rate [Pulse Oximeter] 68 65 Respiratory Rate 16 16 16 Blood Pressure Blood Pressure [Le ft Upper Arm] Blood Pressure [Ri ght Arm] 144/95 H 107/67 Pulse Oximetry 96 96 98 Oxygen Delivery Me thod Room Air Room Air Room Air 06/11/25 22:15 06/11/25 22:58 06/11/25 22:59 Temperature 98.7 F Pulse Rate Pulse Rate [Pulse Oximeter] 65 65 64 Respiratory Rate 16 16 16 Blood Pressure Blood Pressure [Le ft Upper Arm] Blood Pressure [Ri ght Arm] 113/64 Pulse Oximetry 93 Oxygen Delivery Me thod Room Air 06/12/25 02:45 06/12/25 03:00 06/12/25 07:00 Temperature 97.2 F L Pulse Rate 65 62 Pulse Rate [Pulse Oximeter] 71 Respiratory Rate 18 Blood Pressure Blood Pressure [Le ft Upper Arm] Blood Pressure [Ri ght Arm] 104/62 Pulse Oximetry 95 Oxygen Delivery Me thod Room Air 06/12/25 07:00 06/12/25 07:00 Temperature 97.6 F Pulse Rate Pulse Rate [Pulse Oximeter] 63 63 Respiratory Rate 16 16 Blood Pressure Blood Pressure [Le ft Upper Arm] Blood Pressure [Ri ght Arm] 99/61 Pulse Oximetry 96 Oxygen Delivery Me thod Room Air DS: Data Data Completed and Pending Labs on day of discharge: Labs from last 24 hours 06/12/25 06/11/25 06/11/25 06:16 18:53 18:35 WBC 8.49 11.77 H RBC 3.96 L 4.54 Hgb 12.4 14.2 Hct 37.4 42.8 MCV 94 94 MCH 31 31 MCHC 33 33 RDW Coeff of Clemencia 13.9 Plt Count 234 259 Neut % (Auto) 81.7 H Lymph % (Auto) 10.3 L [place] % (Auto) 7.1 Eos % (Auto) 0.5 Baso % (Auto) 0.3 Neut # (Auto) 9.60 H Lymph # (Auto) 1.20 [place] # (Auto) 0.80 Eos # (Auto) 0.10 Baso # (Auto) 0.00 Abs Immat Gran (auto) 0.00 Imm/Tot Granulo (auto) 0.1 INR Sodium 130 L 134 L Potassium 4.2 3.4 L Chloride 99 99 Carbon Dioxide 30 30 Anion Gap 1 L 5 L BUN 21 16 Creatinine 1.0 0.8 Estimated GFR 56 73 Glucose 108 156 H Calcium 9.0 9.2 TSH 1.750 Lab Acknowledgement 06/11/25 06/11/25 18:14 14:50 WBC RBC Hgb Hct MCV MCH MCHC RDW Coeff of Clemencia Plt Count Neut % (Auto) Lymph % (Auto) [place] % (Auto) Eos % (Auto) Baso % (Auto) Neut # (Auto) Lymph # (Auto) [place] # (Auto) Eos # (Auto) Baso # (Auto) Abs Immat Gran (auto) Imm/Tot Granulo (auto) INR 1.96 H Sodium Potassium Chloride Carbon Dioxide Anion Gap BUN Creatinine Estimated GFR Glucose Calcium TSH Lab Acknowledgement Test Added Discharge Plan Discharge Disposition: Home, Self-Care Date of Admission: 06/11/25 17:52 Attending Provider on Discharge: Hiral Silverio Primary Care Provider: Brianna Mckay Condition: Stable Anticipated Discharge Date/Time: 06/12/25 08:56 Discharge Medications: New acetaminophen 325 mg Tablet 1,000 mg PO Q6-8H PRNQty: 60 0RF oxycodone 5 mg Tablet 2.5 - 5 mg PO Q4H PRN (Reason: Pain) Qty: 20 0RF Rx Instructions: 1/2-1 tab for pain not controlled by APAP Continued sotalol 80 mg tablet 80 mg PO DAILY alendronate 70 mg tablet 70 mg PO QWEEK Patient Comments: FRIDAY calcium carbonate 600 mg calcium (1,500 mg) tablet 600 mg PO BID diphenhydramine HCl [Benadryl] 25 mg capsule 25 mg PO QHS zinc gluconate 50 mg tablet 50 mg PO .3X/WEEK calcium carbonate-vitamin D3 [Calcium 500 + D] 500 mg-10 mcg (400 unit) tablet,chewable 1 tab PO BID Rx Instructions: take whatever calcium/vit D you have at home Held lisinopril 20 mg tablet 20 mg PO QDAY Hold Instructions: hold until PCP f/u warfarin 3 mg tablet 3 mg PO DIRECTED Hold Instructions: hold until surgery Patient Comments: 6 MG (2 TABS) , FRIDAY, 7.5 MG (2.5 TABS) ALL OTHER DAYS amlodipine 2.5 mg tablet 2.5 mg PO DAILY Hold Instructions: hold for lower blood pressure during hospital stay - f/u with PCP to discuss BP medications further hydrochlorothiazide 12.5 mg tablet 12.5 mg PO DAILY Hold Instructions: hold until f/u with PCP given lower BPs during stay Discharge Orders: Discharge Order (Routine); Ordered 06/12/25 Ordered By: Hiral Silverio Additional Instructions: No strenuous activity. See Dr. Kearns as scheduled on 06/14 at 10:40am. Good idea to schedule Tylenol (1000mg every 6-8 hours, you can take a TOTAL of 4000mg of Tylenol in 24 hours), in between Tylenol doses you can use Oxycodone for severe pain. HOLD Coumadin until Ortho followup; restart this pending if/when surgery is scheduled. Your Blood Pressure was a little low here and we want to reduce the risk of falling, so on discharge you are holding your lisinopril, HCTZ, and amlodipine. You can check your blood pressure once per day at home and if it is consistently above 150/90, you can restart the lisinopril. See Brianna in follow-up to discuss her blood pressure management. Please call [facility] at [phone] to schedule an appointment. Activity Level: Light activity and Weight Bearing as Tolerated Discharge Diet: Regular Follow Up Appointments: Brianna Mckay PALoriC [Primary Care Provider, Family Practice] Forms: Patient Belongings, [facility] Info Instructions
[2025-06-12] MEDS: SOTALOL HCL 80 MG TABLET PO (09:30)
[2025-06-12] MEDS: SODIUM CHLORIDE 0.9 % (FLUSH) 10 ML SYRINGE 5 ML IVF (09:32)
== END 2025-06-12 14:45 | disposition home or self-care (01) ==
LOC: ED 17:04 → MEDSURG 17:53
PROVIDERS: Admitting Provider Family Medicine; Emergency Provider Family Medicine; PCP Student in an Organized Health Care Education/Training Program; Visit Provider Family Medicine
DX: S52.502A Unspecified fracture of the lower end of left radius, initial encounter for closed fracture (principal); S52.615A Nondisplaced fracture of left ulna styloid process, initial encounter for closed fracture; S03.2XXA Dislocation of tooth, initial encounter; E87.6 Hypokalemia; M81.0 Age-related osteoporosis without current pathological fracture; I48.0 Paroxysmal atrial fibrillation; I10 Essential (primary) hypertension; Z79.01 Long term (current) use of anticoagulants; Z95.0 Presence of cardiac pacemaker; W01.0XXA Fall on same level from slipping, tripping and stumbling without subsequent striking against object, initial encounter
CPT/HCPCS: 29125; 36415; 70450; 70486; 72125; 73110; 73562; 73700; 80048; 84443; 85025; 85027; 85610; 93005; 97116; 97161; 97165; 97535; 99284; 99285; 99291; A9270; G0378; G0390

== ENCOUNTER 2025-06-15 09:55 | Day surgery (SDC) | payer MEDICARE, SELFPAY ==
[2025-06-15] VITALS (9 sets, daily range): BP systolic 111–149; BP diastolic 66–89; PULSE 60–65; RESP 12–16; TEMP 36.1–36.7; O2SAT 93–98; BMI 21.3
[2025-06-15] MEDS: LACTATED RINGERS 1000 ML 1,000 ML 100 ML IV (10:40)
[2025-06-15] MEDS: SODIUM CHLORIDE 0.9 % (FLUSH) 10 ML SYRINGE IVF (10:47)
--- NOTE | 2025-06-15 10:55 | SUR.PREOP ---
TIME?OUT:?1055 PT/RN/MDA?VERIFICATION?OF?SURGICAL?SITE,?PROCEDURE,?AND?CONSENT OBTAINED?PRIOR?TO?INVASIVE?PROCEDURE.
[2025-06-15] MEDS: MIDAZOLAM HCL 1 MG/ML inj IVP (10:56)
--- NOTE | 2025-06-15 11:08 | P.NB_ITS ---
Nerve Block Nerve Block Time Seen by Provider: 10:52 Date Seen: 06/15/25 Type of block requested by surgeon for post-operative analgesia: axillary Side: left Time out performed: Yes Verification of patient name: Yes Verification of date of : Yes Site marking: site marked Name of person performing procedure: Debra Lowe Assistants, if any: Ermias Keyes Continuous monitoring Was continuous monitoring of O2 sat, B/P, property assessment monitor, recorded every 15 minutes?: Yes Procedure Checklist: sterile prep, needles and gloves Ultrasound guided. Images saved: Yes Medications given in 5ml increments after negative aspiration: Ropivicaine %: 0.5 mL: 15 Needle gauge: 20 and Lidocaine %: 2 mL: 5 Precedex (mcg): 25 Patient tolerated procedure well: Yes Block Charges Block Charge (with Pro Fee): Axillary Nerve Use of Ultrasound Machine for Block: Yes- US Guidance/pain block
--- NOTE | 2025-06-15 12:26 | W.PM.H&PU ---
History & Physical Update History & Physical Update H&P Reviewed and patient assessed: No changes noted
--- NOTE | 2025-06-15 12:26 | PM.ORPRC ---
Procedure Note Date of procedure: 06/15/25 Procedure: PREOPERATIVE DIAGNOSES: 1. Left distal radius fracture intraarticular with comminution and dorsal angulation/displacement - unstable; 3+parts 2. Left intra-articular patella fracture, comminuted, acute, nondisplaced POSTOPERATIVE DIAGNOSES: 1. Left distal radius fracture intraarticular with comminution and dorsal angulation/displacement - unstable; 3+parts 2. Left intra-articular patella fracture, comminuted, acute, nondisplaced NAME OF OPERATION: 1. Left distal radius open reduction with internal fixation of intraarticular fracture (3+ parts) 2. Closed treatment of a closed, acute, intra-articular, nondisplaced left patella fracture 3. Intraoperative fluoroscopy operated and interpreted by Blake Kearns M.D. for intraoperative evaluation of fracture reduction and implant positioning. Fluoroscopy time was 15 seconds. SURGEON: Blake Kearns MD DESIGN ASSEMBLER: Ambrocio Parks - Of note, an field administrative assistant was critical for this case to aide in patient positioning, limb manipulation, tissue retraction, closure, and splinting. ANESTHESIA: Supraclavicular block + MAC EBL: 5 mL IMPLANTS: Synthes dual column volar locking plate with 2.4 mm proximal locking screws and distal locking pegs. TOURNIQUET: 30 minutes at 200 torr. INDICATIONS: The patient is a pleasant, 85-year-old female who sustained a left wrist injury after a fall. They had difficulty with use of the extremity and deformity. Workup included xrays which revealed an unstable fracture. Given these findings, surgery was recommended to stablize the fracture. FINDINGS: Closed, comminuted, displaced intra-articular 3+ part distal radius fracture. PROCEDURE: Following a thorough discussion of risks, benefits, and alternatives, consent was obtained and the operative extremity was marked. The patient was brought to the operating room and placed supine on the operating table. Induction of anesthesia was achieved. Appropriate time out was performed identifying proper patient, site and procedure. 1 gram of iv Ancef was administered within 1 hour of incision preoperatively. The left upper extremity was prepped and draped in the appropriate sterile fashion using ChloraPrep prep. The limb was exsanguinated and the tourniquet inflated. A longitudinal incision was made overlying the FCR tendon. Sharp incision through skin and subcutaneous tissue allowed identification of the FCR tendon. The superficial sheath was sharply divided, the tendon retracted ulnarly, and the deep fascial sheath also released. The FPL was retracted ulnarly and the pronator quadratus was sharply released from the radial border of the radius and subperiosteally elevated. The fracture was encountered and cleared of interposed periosteum / fracture hematoma. A reduction was performed and the appropriate plate selected. Temporary stabilization allowed C-arm fluoroscopy to confirm proper fracture reduction and plate positioning. The oblong hole was filled with a nonlocking screw followed by multiple distal locking pegs being careful to keep these in subchondral bone and extraarticular. Finally, the remaining proximal shaft screws were drilled and placed. Fluoroscopic imaging confirmed the improved position and showed the fracture to be stable. At this stage, the wound was thoroughly irrigated with normal saline. Closure performed with 0 Vicryl for the pronator quadratus, followed by deflation of the tourniquet. All major bleeding points were cauterized. Closure was then completed with 2-0 Stratafix for the subcutaneous, and 4-0 statafix for subcuticular closure. Dressings were applied along with a volar/dorsal splint. The patient was awoken from anesthesia and transferred to PACU in stable condition. Again, closed treatment of the left intra-articular comminuted nondisplaced patellar fracture was undertaken. A knee immobilizer was applied. PLAN: 1. Elevate operative extremity. 2. Ice, acetominphen or ibuprofen PRN. 3. Oxycodone for pain as needed. 4. Follow up with PA visit in 10-16 days for wound check and splint removal.
--- NOTE | 2025-06-15 12:34 | P.ANES_ITS ---
Anesthesia Charges Start Date/Time Anesthesia Start Date: 06/15/25 Anesthesia Start Time: 11:15 Stop Date/Time Anesthesia Stop Date: 06/15/25 Anesthesia Stop Time: 12:34 Summary Extremes of Age - Over 70 or under 1: KEYSMITH Coding CPT Codes CPT Codes: ANESTH LOWER ARM SURGERY - 85488 ([id number]) P3 - PATIENT W/SEVERE SYS DISEASE, QZ - KEYSMITH SVC W/O SWITCHBOARD AND CONTROL ROOM OPERATOR BY Additional Codes: Summary - Extremes of Age - Over 70 or under 1: KEYSMITH ([id number])
--- NOTE | 2025-06-15 12:34 | W.ANESCHARGE ---
Anesthesia Charges Start Date/Time Anesthesia Start Date: 06/15/25 Anesthesia Start Time: 11:15 Stop Date/Time Anesthesia Stop Date: 06/15/25 Anesthesia Stop Time: 12:34 Summary Extremes of Age - Over 70 or under 1: SEO PROFESSIONAL Coding CPT Codes CPT Codes: ANESTH LOWER ARM SURGERY - 48004 ([id number]) P3 - PATIENT W/SEVERE SYS DISEASE, QZ - SEO PROFESSIONAL SVC W/O SMALL PRODUCTS I ASSEMBLER BY Additional Codes: Summary - Extremes of Age - Over 70 or under 1: SEO PROFESSIONAL ([id number])
== END 2025-06-15 14:06 | disposition home or self-care (01) ==
LOC: OR 09:57
PROVIDERS: PCP Student in an Organized Health Care Education/Training Program; Visit Provider Orthopaedic Surgery Sports Medicine
PROC: (CPT 25575; principal; 2025-06-15 12:00)
DX: S52.572A Other intraarticular fracture of lower end of left radius, initial encounter for closed fracture (principal); S82.092A Other fracture of left patella, initial encounter for closed fracture; G89.18 Other acute postprocedural pain
CPT/HCPCS: 25609; 27520; 01830; 64417; 73100; 76000; 76942; 99100; C1713; J0690; J1100; J2250; J2405; J2704; J2795; J3010; J7120

== ENCOUNTER 2025-08-30 09:30 | Outpatient (RCR) | payer MEDICARE, SELFPAY ==
--- NOTE | 2025-07-06 17:52 | OT.OPOE ---
OT Outpatient Ortho Eval OT Outpatient Ortho Eval* Start: 07/06/25 12:23 Freq: Status: Active Protocol: Document 07/06/25 12:23 AMB (Rec: 07/06/25 17:42 AMB [id number]) E-signed By Marilyn Tom, OTR/L, CLT, CABIN SERVICE AGENT OT OP Ortho Eval Details Complexity Complexity Low Insurance Information Insurance Medicare B Information Outpatient History/Precautions Current Condition/Medical Diagnosis Referring Provider Dr Kearns Medical Diagnoses Z98.890 Other specified postprocedural state Treatment Diagnosis R53.1 Weakness LUE wrist M25.631 Stiffness LUE wrist Date of Onset DOI: 06/11/25, DOS: 06/15/25 Other Conditions PMH reviewed and copied from ortho chart: Medical History (Updated 06/28/25 @ 12:34 by Regis Ruiz PA-C) Anticoagulation monitoring, INR range 2-3 Z79.01 - penitent[facility] (current) use of anticoagulants (ICD -10) H. pylori infection A04.8 - Other specified bacterial intestinal infections (ICD-10) Acute hypokalemia E87.6 - Hypokalemia (ICD-10) Avulsion of tooth due to trauma S03.2XXA - Dislocation of tooth, initial encounter (ICD -10) Comminuted fracture of left patella S82.042A - Displaced comminuted fracture of left patella, initial encounter for closed fracture (ICD-10) Closed fracture of left wrist S62.102A - Fracture of unspecified carpal bone, left wrist, initial encounter for closed fracture (ICD-10) Fall with significant injury W19.XXXA - Unspecified fall, initial encounter (ICD-10) Warfarin anticoagulation Z79.01 - intermission coordinator (current) use of anticoagulants (ICD -10) Paroxysmal atrial fibrillation I48.0 - Paroxysmal atrial fibrillation (ICD-10) Osteoporosis M81.0 - Age-related osteoporosis without current pathological fracture (ICD-10) Pacemaker Z95.0 - Presence of cardiac pacemaker (ICD-10) Raynaud phenomenon I73.00 - Raynaud's syndrome without gangrene (ICD-10) Other and unspecified hyperlipidemia E78.5 - Hyperlipidemia, unspecified (ICD-10) Hypertension I10 - Essential (primary) hypertension (ICD-10) Surgical History (Updated 06/28/25 @ 12:33 by Regis Ruiz PA-C) History of open reduction and internal fixation (ORIF) procedure (06/15/25) Z98.890 - Other specified postprocedural states (ICD-10 ) H/O: hysterectomy Z90.710 - Acquired absence of both cervix and uterus ( ICD-10) Medical/Functional History Medical History Yes Reviewed Prior Level of Prior to current injury, pt was independent with all Function/Mobility ADLs and IADLs including cleaning, laundry, cooking, shopping, bills, etc. Pt lives in an apartment so there is no outside work to do. Pt's daughter has been living with her and assisting with shower, dressing, especially donning and doffing the knee immobilizer. Pt does have 3 grab bars in her shower and refuses to have a shower chair, states she will only shower when her daughter is with her. Pt's daughter will be leaving to go home tomorrow but will be back in a few days to help with bathing and cleaning, etc. Social History Physical Barriers in Elevator Home Environment Employment Status Retired Hobbies Pt enjoys crossword puzzles, cooking, baking, clean, knitting Fitness Enjoys walking Ortho Subjective Subjective Subjective Pt states she fell after tripping on a curb on 06/11/25 , states she broke her two front teeth, her left wrist and her left knee. Pt was brought to the ER and referred to orthopedics. Pt ended up staying overnight in the hospital and then discharged home. Pt underwent ORIF of her left wrist with Dr Kearns on 06/15/25. Pt had her cast removed and is feeling ok. Pt notices significant swelling in her fingers which makes it hard to fully close her hand into a fist. Pt feels like her pain is very well managed. Pain Assessment Pain Pain Yes Pain Comments Pt rates her average pain level at 2/10 in her LUE wrist, described as aching, sometimes aches. Goniometric Comments Goniometric Comments Goniometric Comments 07/06/25 AROM of BUE is WFL throughout with the exception of her LUE, which is as follows: Wrist: Flex/Ext=30/20 UD/RD= 10/5 Forearm: Pro/Sup= 65/15 Composite fist= -5cm from tip of MF to DPC Opposition= Tip of RF OT Objective Data Hand Hand Dominance Right Skin/Wounds/Edema Comments 07/06/25 Surgical incision is healing well, no s/s of infection, no adhesion noted. Sensation Sensation Assessment 07/06/25 Pt denies paresthesia Summary Comments OT Problems Problems Problems Decreased Strength,Decreased Range of Motion,Pain, Lifting,Gripping,Pinching Other Problems Opening Containers,Dressing,Fasteners Patient Potential Good Assessment Assessment Assessment Pt demonstrates pain, weakness, and limited AROM of the LUE forearm, wrist, hand and forearm. These deficits limit pts safety and independence with ADLs and IADLs. Pt will benefit from skilled OT intervention to restore full, pain-free use of her LUE in order to resume PLOF with all ADLs and IADLS. Pt is very motivated and has good family and community support. Occupational Therapy Treatment Plan - OP Potential Rehabilitation Good Potential Barriers Barriers to goal Pt is currently wearing a knee immobilizer due to attainment patellar fracture on her RLE, makes mobility especially difficult. She is not able to drive her car currently but has assist from her daughter and friends for transportation. Set Goals Goals Set with Yes Patient Goals Goals Short-Term Goals (08/09/25) Patient will be independent and compliant with HEP in order to maximize recovery and restore full, pain-free use of her LUE> Patient will demonstrate full, pain-free AROM of her LUE hand, wrist and forearm to improve her ability to hold her toothbrush and comb her hair. Long-Term Goals (10/04/25) Patient will demonstrate mixed signal design engineer strength in left hand comparable to her right hand in order to support independence in cleaning and cooking tasks. Patient will demonstrate at MMT of the LUE wrist flex and ext to at least 5-/5 to improve her ability to safely lift and transport cooking pots and pans in order to return to full independence with meal prep. Patient will demonstrate full, pain-free AROM and strength in her LUE in order to resume safe independence with all card room manager including cleaning and laundry. Treatment Plan Treatment Plan Evaluation,Edema Control,Joint Mobilization,Manual Therapy,Splinting,Wound Care/Scar Management, Therapeutic Exercise,Therapeutic Activities,Self Care/ Home Management,Regional Geodetic Advisor Training,Education Expected Frequency 1-2x Week Expected Duration 10-12 wks Home Program Home Program Home Program Initiated Home Program 07/06/25 Access Code: [email or web address] Specifics URL: [email or web address] Date: 07/06/2025 Prepared by: Clarisa Tom Program Notes Be gentle, if you have more pain / swelling, you may need to decrease your efforts or repetitions / sessions .? Exercises - Seated Full Fist AROM - 2-3 x daily - 7 x weekly - 10 reps - Finger Spreading - 2-3 x daily - 7 x weekly - 1 sets - 10 reps - Wrist Flexion Extension AROM - 2-3 x daily - 7 x weekly - 1 sets - 10 reps - Thumb Opposition - 2-3 x daily - 7 x weekly - 1 sets - 10 reps - Seated Wrist Radial and Ulnar Deviation AROM - 2-3 x daily - 7 x weekly - 1 sets - 10 reps - Standing Forearm Pronation and Supination AROM - 2-3 x daily - 7 x weekly - 1 sets - 10 reps Certification Certification Statement I Certify That: Therapy Services Provided,Therapy Plan Established, Therapy Plan Reviewed Certification Information Clinic ID # [id number] Initial 07/06/25 Certification Date Recertification Due 10/04/25 Date Provider Signature Yes Required Provider Signature POC & Medical Necessity Shows Agreement With Physician NPI Number Write NPI# Here Physician Comment/ Comment or Changes Change Physician Signature Please Sign/Date Here & Date Requested
--- NOTE | 2025-07-26 10:55 | PT.OPEX ---
PT [place] Outpatient Eval PT [facility] Outpatient Eval Start: 07/26/25 07:50 Freq: Status: Active Protocol: Document 07/26/25 07:52 KLV (Rec: 07/26/25 10:55 KLV [id number]) E-signed By Sarah Samson, PT Physical Therapy Outpatient Evaluation Insurance Information Recert Due Date 10/20/25 Insurance Name Medicare B,are Medical Diagnosis S/P left patella fx Treating Diagnosis Left knee pain, limited knee ROM, antalgic gait, muscle weakness Imaging Report Weightbearing AP, lateral, and sunrise view of the left Information knee ordered 07/12/[address] Kearns. This shows stable appearance to the left mid patella fracture. Intra-articular fracture. Nondisplaced. The comminuted components that we saw more clearly on the CT scan in June are not quite is clearly visualized on these radiographs, but again seen is the severe patellofemoral osteoarthritis with near bone-on- bone joint space loss and osteophytosis. Referring MD Kearns Subjective Subjective [place] reports to PT s/p 6 weeks left patella fx and distal radius fx following a trip and fall on an uneven sidewalk DOI: 06/11/25. She underwent L distal radius internal fixation 06/15/25 and has been progressing well with OT. She has been wearing a knee immobilizer since the injury and has been advised to wear the immobilizer for 1 more week with weaning as able from there. She has been able to ambulate without AD and immobilizer in hallways of apartment, walking stick in community and no immobilizer for very short bouts in her apartment with no difficulty; just stiffness. Did not use any AD prior to injury. She lives on the third level in her apartment. Has been using elevator since injury however prior she was able to descend stairs. Pain with ascending d/t left knee injury 30 years ago that she has had surgery on with ongoing arthritis. Goals are to be able to return to driving, don/doff socks independently and walk desired distances without restriction. PMH: a-fib, pacemaker, osteoporosis, HTN Pain Comments 1/10 worst currently Date of Last 07/12/25 Physician Visit Date of Next 08/16/25 Physician Visit Current Work Status Retired Objective Other/Pertinent Knee ROM: Objective -R 0-130 -L 0-52 Quad set: Good with cuing SLR: able to perform 3x10 without extension lag, fatiguing by the end SL balance: -20 sec B with 2 finger assist; unable without assist Gait: continuing to ambulate with immobilizer. Will assess gait mechanics at next session with wean from immobilizer Functional Test LEFS: 49/80 Performed & Score Assessment Assessment/ Patient is an 85 year old female presenting to physical Impression therapy for evaluation and treatment of left patella fx following a fall on sidewalk. DOI: 06/11/25. Patient presents with limited knee ROM (0-52), antalgic gait, muscle weakness, impaired balance. These impairments are limiting the patients ability to don/doff socks, drive, walk in community/perform errands independently. Patient appears motivated to participate in PT and presents with good prognosis to improve mobility, strength, proprioception and return to functional activities with skilled physical therapy intervention. Plan of Care Rehabilitation Good Potential Physical Therapy In 4 visits: Goals Pt will demonstrate at least 0-90 knee ROM in order to perform sit to stands independently Pt will be able to don/doff socks independently In 8 visits: Pt will exhibit 9 pt improvement in LEFS Outcome measure to demonstrate functional improvement and progress towards goals. Pt will be able to negotiate 2 flights of stairs reciprocally in order to safely get in/out of apartment Pt will be able to walk at least 30 minutes independently in order to return to pre injury activity and be able to independently get groceries Treatment Plan/ Gait Training,Ice/Cold/Vasopneumatic,Joint Mobilization Direct Interventions ,Manual Therapy,Neuromuscular Re-ed,Self-Care/Home Management,Therapeutic Activities,Therapeutic Exercises Frequency/Duration 1x/wk for 8 weeks Patient Will Be Completion of LTG(s),Independent w/HEP,Independently Discharged From Progressing Therapy Evaluation Billing Untimed Code 25 Treatment Minutes Complexity Low Certification Information Initial 07/26/25 Certification Date Ending Certification 10/20/25 Date Provider Signature Yes Required Provider Signature POC & Medical Necessity Shows Agreement With Physician NPI Number Write NPI# Here Physician Comment/ : Change Physician Signature Please Sign/Date Here & Date Requested
== END 2025-08-30 11:13 | disposition home or self-care (01) ==
PROVIDERS: PCP Student in an Organized Health Care Education/Training Program; Visit Provider Orthopaedic Surgery Sports Medicine
DX: S82.045D Nondisplaced comminuted fracture of left patella, subsequent encounter for closed fracture with routine healing (principal); Z51.89 Encounter for other specified aftercare
CPT/HCPCS: 97110; 97140; 97161; 97165; X5282